=== PATIENT | male | born 1950 | race Caucasian/White ===

== ENCOUNTER 2023-05-09 14:55 | Emergency (ER) | payer MEDICARE, OTHER, SELFPAY ==
[2023-05-09 15:08] VITALS: BP 113/79
--- NOTE | 2023-05-09 18:34 | ED.GENMED ---
History of Present Illness
General
Chief Complaint: Fall
Source: patient, spouse and family
Exam Limitations: none
Time Seen by Provider: 05/09/23 17:26
Nursing documentation reviewed up to this point in time: agreed with
Travel History
Have you had any contact with someone who has COVID-19?: No
Do you have any symptoms of coronavirus? Fever > 100 degrees, chills, cough, shortness of breath, sore throat, loss of taste or smell, muscle aches, or headache?: No
History of Present Illness
History of Present Illness:
72-year-old male with past medical history of glioblastoma stroke hyperlipidemia presenting to the emergency department today with concerns of a fall outside had difficulty getting up this was not specifically witnessed by the but was not
milligram for long as she was near him just moments prior. He denies any trauma otherwise feels well claims of some very mild hip comfort. Denies additional concerns. Denies hitting his head
Past History
Past History
ED Past Medical History: Cancer (Glioblastoma), CVA and Hypercholesterolemia
ED Past Surgical History: Appendectomy and Brain (Resection of astrocytoma)
Social History
Tobacco: Non-smoker
Alcohol: None
Drug: None
Personal:
Living: with family
Review of Systems
Review of Systems
Allergies reviewed?: Yes
All Other Systems: ROS reviewed and negative except as documented in HPI and ROS
Phy Exam
Physical Exam
Physical Exam:
GENERAL: Alert , in no apparent distress
EYE: pupils equal and reactive
NECK: Supple, no significant adenopathy.
ENT: o/p clr, mmm.
CARDIAC: Regular rate and rhythm .
LUNGS: Clear breath sounds bilaterally, no acute respiratory distress, no wheezes/rales/rhonchi
ABDOMEN: Soft, without focal tenderness, no r/g, no cvat
NEUROLOGICAL: Alert and oriented, no focal neuro deficits
SKIN: Skin tear to the left elbow roughly 3 cm in length 3 cm in diameter warm and dry, skin intact.
MUSCULOSKELETAL: No edema, well perfused.
PSYCH: Normal and appropriate interaction.
Course
Orders/Labs/Results
Orders:
Orders
05/09/23 18:02
CT Head W/o Iv Contrast Urgent
Comment:
Reason For Exam: fall
Hip, Left 2-3 Views [CR Hip - LT w/wo Pel 2-3 Vw*] Urgent
Comment:
Reason For Exam: left hip pain after fall
Include a pelvis x-ray?: Yes
Vital Signs
Initial and Last Documented VS:
Initial Vital Signs
Temp Pulse Resp BP Pulse Ox
98.3 F 105 18 113/79 96
05/09/23 15:08 05/09/23 15:08 05/09/23 15:08 05/09/23 15:08 05/09/23 15:08
Last Documented Vital Signs
Temp Pulse Resp BP Pulse Ox
98.3 F 105 18 113/79 96
05/09/23 15:08 05/09/23 15:08 05/09/23 15:08 05/09/23 15:08 05/09/23 15:08
Procedures
Laceration Closure
Left Elbow:
Status of Wound: clean
Size of Wound in cm: 3
Description of Wound Edges: other (Skin tear)
Preparation: cleaned with saline
Revision/Debridement: routine- no revision
Wound exploration: explored to base- no FB
Type of Closure: other (Closed with 5 Steri-Strips)
MDM/Problems Addressed
MDM/Problems Addressed:
72-year-old male presenting to the emergency department today with concerns of a fall outside. Denies any significant injuries but had difficulty standing up secondary to hip pain. Otherwise denies any additional symptoms or concerns at this time.
He does have a history of dementia the family him that he is acting his baseline normal self at this point. No specific acute abnormalities on examination other than a skin tear to the left elbow which was cleaned thoroughly and closed with 5
Steri-Strips. This was then wrapped and bandaged. Plan for additional CT scan of the head as well as x-ray of the hip. CT without emergent findings x-ray without signs of fracture. Patient appears stable for discharge no emergent findings at
this point. Return precautions given advised for close outpatient follow-up.
*Critical Care Note
Total Time (30-74mins, 75-104mins- exclusive of procedures): Not Applicable
ED Attending Note
-
Portions of this chart may have been created with voice recognition software.� Occasional wrong word or��sound alike� substitutions may have occurred due to the inherent limitations of voice recognition software.
Discharge Plan
Departure
Patient Disposition: Home (Routine Discharge)
Date of Disposition: 05/09/23
Time of Disposition: 20:00
Patient with high blood pressure during this ER visit?: No
Condition: Good
Covid-19: Not Applicable
Discharge Problem:
Fall
Instructions: Preventing falls in adults
Prescriptions:
No Action
acetaminophen 325 mg Tablet
650 mg PO Q6H PRN (Reason: pain)
levetiracetam 500 mg Tablet
500 mg PO BID
tamsulosin 0.4 mg Capsule
0.4 mg PO HS
dexamethasone 2 mg tablet
2 mg PO DAILY
aspirin 81 mg Tablet,Chewable
81 mg PO DAILY Qty: 0 0RF
atorvastatin 40 mg Tablet
40 mg PO QPM Qty: 90 0RF
dutasteride 0.5 mg Capsule
0.5 mg PO DAILY Qty: 90 0RF
Patient Comments:
12/31/21- spouse say he still takes this but hasnt not been filled in 2021, and patient does not use mail order
Referrals:
Melo Carlson MD [Family Provider] -
Activity Restrictions/Additional Instructions:
You came to the emergency department today after a fall. You had a reassuring CT scan and x-ray. Return to the emergency department for any worsening, new or concerning symptoms.
Interventions
Interventions:
ED-Musculoskeletal Assessment Last Done: 05/09/23 17:20
ED- Neurological Assessment Last Done: 05/09/23 17:20
ED-Skin Assessment Last Done: 05/09/23 17:20
== END 2023-05-09 20:11 | disposition home or self-care (01) ==
LOC: EMR 14:55
PROVIDERS: EMERGENCY PHYSICIAN Emergency Medicine; FAMILY PHYSICIAN Internal Medicine
DX: S51.012A Laceration without foreign body of left elbow, initial encounter (principal); W19.XXXA Unspecified fall, initial encounter; F03.90 Unspecified dementia, unspecified severity, without behavioral disturbance, psychotic disturbance, mood disturbance, and anxiety; Z86.73 Personal history of transient ischemic attack (TIA), and cerebral infarction without residual deficits
CPT/HCPCS: 99284; 70450; 73502

== ENCOUNTER 2023-10-10 15:33 | Inpatient (IN) | payer MEDICARE, OTHER, SELFPAY ==
[2023-10-10] VITALS (10 sets, daily range): BP systolic 96–128; BP diastolic 68–82; BMI 29.0
[2023-10-10 11:24] LABS: % Basophils 0.3 % (0-2); % Eosinophils 1.3 % (0-6); % Immature Granulocytes 0.6 % (0-0.5); % Lymphocytes 10.5 % (20.5-51.1); % Neutrophils 81.3 % (42.2-75.2); Absolute Eosinophils 0.1 10^3/uL (0-0.7); Absolute Immature Granulocytes 0.1 10^3/uL (0-0.05); Absolute Lymphocytes 1.1 10^3/uL (1.2-3.4); Absolute Monocytes 0.6 10^3/uL (0.1-0.6); Absolute Neutrophils 8.4 10^3/uL (1.4-6.5); Hematocrit 40.6 % (39.0-52.0); Mean Corp Hgb Conc. 34.5 g/dL (33.0-37.0); Mean Corpuscular Volume 92.7 fL (80.0-94.0); Mean Platelet Volume 9.1 fL (7.4-10.4); Nucleated Red Blood Cells % 0 % (-); Platelet Count 201 10^3/uL (130-400); Red Blood Cell Count 4.38 10^6/uL (4.70-6.10); Red Cell Dist. Width 14.2 % (11.5-14.5); White Blood Cell Count 10.3 10^3/uL (4.8-10.8)
--- NOTE | 2023-10-10 11:35 | ED.GENMED ---
History of Present Illness
General
Chief Complaint: Blood Pressure Problem
Source: family and [place] [facility]
Time Seen by Provider: 10/10/23 11:22
History of Present Illness
History of Present Illness:
73yoM with a history of dementia, glioblastoma, prior CVA, and hyperlipidemia presenting via EMS for evaluation after a syncopal episode. Patient is unable to provide history and does not remember the episode. I called and spoke with umair Riojas SENIOR TECHNICAL ANALYST
at his nursing facility [facility]. Patient had a loose BM this morning. Staff got him up and was ambulating him to go to breakfast. Patient's eyes rolled back and staff lowered him to a chair. Nurse states that it was a near syncopal
episode and he did not lose consciousness. BP was 85/70 at that time and he appeared pale, diaphoretic, and shaky. Patient then had another loose BM and was too weak to stand. He seemed to be falling to the right side and was unable to sit upright
so EMS was called. Patient was hypotensive to 70s/50s for EMS. He received 500cc IV fluid bolus prehospital and is normotensive on arrival. He has no complaints at this time.
Past History
Past History
ED Past Medical History: Cancer (Glioblastoma), CVA and Hypercholesterolemia
ED Past Surgical History: Appendectomy and Brain (Resection of astrocytoma)
Social History
Tobacco: Non-smoker
Alcohol: None
Drug: None
Personal:
Living: with family
Phy Exam
General Physical Exam
General Presentation: well appearing and no apparent distress
General age: appears stated age
General Skin: warm and dry
General Habitus: elderly
General Mental: alert
Cardiovascular Exam
Cardiovascular Exam: regular rate/rhythm and no edema
Pulmonary Exam
Pulmonary Exam: lungs clear, no respiratory distress and no crackles
Neurological Exam
Neurological Exam: alert and other (Oriented to person. Not oriented to place or time. Follows commands in all extremities. Negative drift x4.)
Skin Exam
Skin Exam: normal color and warm/dry
Psychiatric Exam
Psychiatric Exam: normal mood/affect
Course
Orders/Labs/Results
Orders:
Orders
10/10/23 11:06
Electrocardiogram (*1) Urgent
Reason for Study: Bradycardia / Tachycardia
EKG- Treatment ONCE
10/10/23 11:16
Complete Blood Count/With Diff Urgent
Comprehensive Metabolic Panel Urgent
10/10/23 11:33
Cardiac Monitoring- Treatment ONCE
10/10/23 11:37
CT Head W/o Iv Contrast Urgent
Comment:
Reason For Exam: Syncope, transient weakness
10/10/23 11:39
Troponin I Urgent
10/10/23 11:45
Potassium Chloride [KCl] 20 meq PO NOW STA
10/10/23 11:54
Urinalysis Reflex To Culture Urgent
Date Specimen was Collected: 10/10/23
Time Specimen was Collected: 11:48
Urine Microscopic Reflex Cult Urgent
10/10/23 15:26
Admit/Transfer Patient As Directed
Co-Sign Provider:
Level of Care: Inpatient admission
Assign to:: Telemetry
Physician / Group: Hospitalist
Diagnosis: Syncope
Reason for Telemetry: Medication for Arrhythmia
Date to Stop Telemetry: 10/12/23
Time to Stop Telemetry: 11:00
Reason for Hospitalization: .
Expected length of stay greater than two midnights?: Yes
ELOS- Estimated Length of Stay in days: 3
I certify the patient meets the requirements for IP care: Yes
10/10/23 15:27
Code Status As Directed
Resuscitation Status: Full Code
10/12/23 11:00
DC Protocol for Telemetry ONCE
Abnormal Lab Results
10/10/23 10/10/23
11:16 11:54
RBC 4.38 L 10^6/uL
(4.70-6.10)
MCH 32.0 H pg
(27.0-31.0)
Abs Immat Gran (auto) 0.1 H 10^3/uL
(0-0.05)
Absolute Neuts (auto) 8.4 H 10^3/uL
(1.4-6.5)
Absolute Lymphs (auto) 1.1 L 10^3/uL
(1.2-3.4)
Immature Gran % 0.6 H %
(0-0.5)
Neutrophils % 81.3 H %
(42.2-75.2)
Lymphocytes % 10.5 L %
(20.5-51.1)
Potassium 3.4 L mmol/L
(3.5-5.1)
Glucose 181 H mg/dl
(70-99)
Total Protein 5.8 L g/dl
(6.3-8.2)
Urine Ketones 1+ A
(Negative)
Urine Albumin (Reflex) 1+ A
(Neg - Trace)
10/10/23 11:16
10/10/23 11:16
Vital Signs
Initial and Last Documented VS:
Initial Vital Signs
Resp BP
23 96/75
10/10/23 11:04 10/10/23 11:04
Last Documented Vital Signs
Temp Pulse Resp BP Pulse Ox
98.8 F 95 16 128/78 98
10/10/23 11:07 10/10/23 13:00 10/10/23 13:00 10/10/23 13:00 10/10/23 11:07
MDM/Problems Addressed
Differential Diagnosis Includes:
73yoM here after multiple near syncopal episodes at his [place] [facility]. Hypotensive for EMS with BP in the 70s/50s. Received 500cc IV fluids prehospital. Hx of dementia and he has no complaints. BP 96/75 on arrival. Remainder vital stable. He is
well-appearing in no acute distress. Differential diagnosis includes but is not limited to: Orthostatic hypotension, dehydration, symptomatic anemia, arrhythmia
Initial ED plan: Placed on nuclear monitoring technician. Check cardiac labs, EKG, CXR, and CT head.
*EKG
Interpreted by ED Provider?: Yes
EKG Intrepretation Date: 10/10/23
Heart Rate: 96
Rate: normal
Rhythm: sinus
[place]: left axis deviation
QRS Pattern: normal QRS
Ischemia: no ischemia
*Critical Care Note
Total Time (30-74mins, 75-104mins- exclusive of procedures): Not Applicable
Update Note
Update Note:
Labs overall unremarkable including normal hemoglobin. Glucose 181. EKG shows NSR without ischemic changes and troponin WNL. CT head is stable from prior. He remains normotensive. He was admitted for further evaluation.
ED Attending Note
-
Portions of this chart may have been created with voice recognition software.� Occasional wrong word or��sound alike� substitutions may have occurred due to the inherent limitations of voice recognition software.
Discharge Plan
Departure
Patient Disposition: Admit
Date of Disposition: 10/10/23
Time of Disposition: 14:20
Presentation/result/management discussed w/ accepting MD/DO: Hospitalist
Discharge Problem:
Near syncope, Hypotension
Interventions
Interventions:
*Risk Screen - Suicide Last Done: 10/10/23 11:07
*General Assessment Last Done: 10/10/23 11:07
*Neglect/Abuse Screening Last Done: 10/10/23 11:07
*ED COVID-19 Vaccine History Last Done: 10/10/23 11:07
ED- Cardiac Assessment Last Done: 10/10/23 11:07
ED- Neurological Assessment Last Done: 10/10/23 11:07
ED- Pulmonary Assessment Last Done: 10/10/23 11:07
[2023-10-10 11:39] LABS: ALT (SGPT) 24 U/L (0-50); AST (SGOT) 23 U/L (17-59); Albumin 3.6 g/dl (3.5-5.0); Alkaline Phosphatase 92 U/L (38-126); Blood Urea Nitrogen 13 mg/dl (9-20); Calcium 8.6 mg/dl (8.4-10.2); Carbon Dioxide 22 mmol/L (22-30); Chloride 107 mmol/L (98-107); Estimated Creatinine Clearance 79 ml/min; Glucose 181 mg/dl (70-99); Potassium 3.4 mmol/L (3.5-5.1); Sodium 137 mmol/L (135-145); Total Bilirubin 1.3 mg/dl (0.2-1.3); Total Protein 5.8 g/dl (6.3-8.2); eGFR > 60.00
[2023-10-10] MEDS: KCL 20 MEQ PO (11:50)
[2023-10-10 12:22] LABS: Troponin I < 0.012 ng/ml
[2023-10-10 12:28] LABS: Urine Albumin 1+ (Neg - Trace); Urine Bilirubin Negative (Negative); Urine Character Clear (Clear); Urine Color Yellow; Urine Glucose Negative (Negative); Urine Ketone 1+ (Negative); Urine Leukocyte Negative (Negative); Urine Nitrite Negative (Negative); Urine Occult Blood Negative (Negative); Urine Urobilinogen Negative (Neg - 1+)
[2023-10-10 12:41] LABS: Urine Red Blood Cell 0-2 /HPF (0-2)
--- NOTE | 2023-10-10 14:50 | HPS.HSE ---
Family Physician
-
Family Physician: Melo Carlson
Chief Complaint
-
Fainting episodes and weakness at [facility]
History of Present Illness
73 years old male [facility] in from [facility] for near syncopal episode. History taken from the daughter at bedside. She reported that family was called regarding weakness today. No loss of consciousness. Some eye fainting episode that
happened after bowel movement. Staff also reported increasing weakness and shuffling gait in last 24 hours.
Patient uses [facility]er at the [facility]. Patient has dementia but usually able to organize his family and answer simple questions.
In the emergency room, blood pressure was 96/70, given IV fluid with good recovery, positive tachycardia. Last blood pressure reading 128/78. No fever. No leukocytosis. Negative troponin. No hypoxia detected. EKG normal sinus rhythm. Mild
hypokalemia.
Staff at the [facility] reported loose stool. Potassium 3.4 on arrival.
No report of chest pain. No report of fever. No report of coughing.
Head the scan showed no acute intracranial abnormality with atrophy noted/stable moderate left temporal encephalomalacia.
Medical History
Past Medical History
Past Medical History: Reports Other (dementia, glioblastoma, prior CVA, and hyperlipidemia, gait dysfunction, urinary incontinence )
Past Surgical History: Reports Other (No recent major surgery )
Social History
Unable to obtain full social history at this time due to: Dementia
Tobacco: Non-smoker
Alcohol: None
Drug: None
Personal:
Living: Retirement
Employment: Retired
Family History
Family History: Not pertinent
Allergies / Home Medications
Allergies reflects when Allergies were last updated in [facility].
Home Medications with original date entered in [facility]
Allergy/Medication List:
Allergies
Allergy/AdvReac Type Severity Reaction Status Date / Time
No Known Allergies Allergy Verified 10/10/23 11:11
Home Medications
dexamethasone 2 mg tablet 1 mg PO DAILY Anti-inflammatory 12/31/21
levetiracetam 500 mg tablet 500 mg PO BID Seizures 12/31/21
tamsulosin 0.4 mg capsule 0.4 mg PO HS Urinary issue 12/31/21
aspirin 81 mg chewable tablet 81 mg PO DAILY #0 tabs 01/04/22
dutasteride 0.5 mg capsule 0.5 mg PO DAILY Urinary issue #90 caps 01/08/22
atorvastatin 40 mg tablet 40 mg PO DAILY 10/10/23
Review of Systems
-
Unable to obtain full review of systems at this time due to: Dementia
History Source: Patient
Cardiac: Denies Chest Pain
Abdomen/GI: Denies Abdominal Pain
Physical Exam
Vital Signs
Vital Signs
Temp Pulse Resp BP Pulse Ox
98.8 F 95 16 128/78 98
10/10/23 11:07 10/10/23 13:00 10/10/23 13:00 10/10/23 13:00 10/10/23 11:07
Physical Exam
General: No Apparent Distress, Comfortable and Obese
HEENT: Atraumatic
Respiratory: Clear
Cardiac: S1/S2 and Regular Rhythm
GI: Soft and Non Tender
Genito-urinary: No costovertebral tender
Musculoskeletal: No Cyanosis and No Edema
Skin: Warm; No Jaundice
Neuro: Awake and Other (followed simple commands )
Psych: Apparent Dementia
Laboratory Results
-
10/10/23 11:16
10/10/23 11:16
Laboratory Results
Total Bilirubin 1.3 mg/dl (0.2-1.3) 10/10/23 11:16
AST 23 U/L (17-59) 10/10/23 11:16
ALT 24 U/L (0-50) 10/10/23 11:16
Alkaline Phosphatase 92 U/L (38-126) 10/10/23 11:16
Troponin I < 0.012 ng/ml 10/10/23 11:39
Impression/Plan
-
73 male presented from [facility] after experiencing near syncopal episode, had low blood pressure also
71-year-old with past medical history for glioblastoma diagnosed 5 years ago underwent tumor resection, received radiation and chemo presented to the to us with worsening confusion over last few weeks.�Found to have �9 mm subacute versus old
nonhemorrhagic lacunar infarct in the anterior limb of the internal capsule and anterior aspect of the lentiform nucleus on the right.�
#Near syncopal episode without loss of consciousness
Reported low blood pressure at [facility] and in [facility]ulance
s/p IVF with good recovery to blood pressure
Admit the patient to the hospital, telemetry -Cardiac monitoring floor
Differential diagnosis include cardiac arrhythmia, vasovagal syncopal episode
Doubt seizure due to lack of seizure activity and postictal confusion.
Recheck troponin.
Monitor for orthostatic hypotension, order orthostatic vital signs twice a day
Monitor blood pressure.
IV fluid, mild hydration
No signs of active infection, no fever, no leukocytosis.
Negative troponin. EKG no acute ischemic changes
CT head with no acute changes
Monitor closely
# History of loose stools, will monitor for diarrhea.
#Hypokalemia
-We will replete with oral KCl
#Glioblastoma, s/p surgery and radiation, with subsequent decline in cognitive function.
#Radiation necrosis and radiation post effects
-We will continue Decadron
-Keppra to be continued
#BPH
-monitor for retention
# Gait dysfunction
PT/OT
Chronic left hip OA
#DVT prophylaxis
Subcu heparin
Total time spent to see the patient, examine the patient on the floor, review data and lab results, discuss treatment plan with patient, his daughter, ER doctor, nursing staff around 75 minutes.
--- NOTE | 2023-10-10 17:00 | PTCARENOTE ---
Pt received in stretcher, pulled over to bed. Son at bedside and on phone to assist in completing admission. Pt is confused, oriented to self only, drowsy, at times restless when disturbed, but otherwise sleeping. Moans at times, but unable to
articulate if or where he is having pain. Bed alarm in place for patient safety. VSS.
[2023-10-10] MEDS: KEPPRA 500 MG PO (20:09)
[2023-10-10] MEDS: HEPARIN 5000 UNITS SC (20:09)
[2023-10-10] MEDS: FLOMAX 0.4 MG PO (22:17)
[2023-10-11] VITALS (9 sets, daily range): BP systolic 113–137; BP diastolic 64–88; PULSE 72–99; O2SAT 97
[2023-10-11 07:20] LABS: Hematocrit 38.4 % (39.0-52.0); Hemoglobin 13.5 g/dL (13.0-18.0); Mean Corp Hgb Conc. 35.2 g/dL (33.0-37.0); Mean Corpuscular Hgb 32.5 pg (27.0-31.0); Mean Corpuscular Volume 92.3 fL (80.0-94.0); Mean Platelet Volume 9.5 fL (7.4-10.4); Platelet Count 181 10^3/uL (130-400); Red Blood Cell Count 4.16 10^6/uL (4.70-6.10); Red Cell Dist. Width 13.9 % (11.5-14.5)
[2023-10-11 08:14] LABS: Blood Urea Nitrogen 17 mg/dl (9-20); Calcium 8.7 mg/dl (8.4-10.2); Carbon Dioxide 22 mmol/L (22-30); Chloride 107 mmol/L (98-107); Estimated Creatinine Clearance 102 ml/min; Glucose 87 mg/dl (70-99); Potassium 3.5 mmol/L (3.5-5.1); Sodium 135 mmol/L (135-145); eGFR > 60.00
[2023-10-11] MEDS: HEPARIN 5000 UNITS SC ×2 (08:37→20:32)
[2023-10-11] MEDS: DECADRON 1 MG PO (08:38)
[2023-10-11] MEDS: KEPPRA 500 MG PO ×2 (08:38→20:31)
[2023-10-11] MEDS: LOW STRENGTH ASPIRIN 81 MG PO (08:38)
[2023-10-11] MEDS: PROSCAR 5 MG PO (08:38)
--- NOTE | 2023-10-11 09:29 | W.PN.HOSP.TC ---
Today's Communication/Plan
-
Neurology evaluation
Continue heart monitoring
Assessment / Plan
Assessment / Plan
Physical Exam
General: No Apparent Distress, Comfortable and Obese
HEENT: Atraumatic
Respiratory: Clear
Cardiac: S1/S2 and Regular Rhythm
GI: Soft and Non Tender
Genito-urinary: No costovertebral tender
Musculoskeletal: No Cyanosis and No Edema
Skin: Warm; No Jaundice
Neuro: Awake and Other (followed simple commands )
Psych: Apparent Dementia
73 male presented from [facility] after experiencing near syncopal episode, had low blood pressure also
71-year-old with past medical history for glioblastoma diagnosed 5 years ago underwent tumor resection, received radiation and chemo presented to the to us with worsening confusion over last few weeks.�Found to have �9 mm subacute versus old
nonhemorrhagic lacunar infarct in the anterior limb of the internal capsule and anterior aspect of the lentiform nucleus on the right.�
#Near syncopal episode without loss of consciousness
Reported low blood pressure at [facility] and in [facility]ulance
Near syncopal episode was associated with passing bowel movement at the half-way.
s/p IVF with good recovery to blood pressure
Orthostatic vital signs are stable.
No cardiac arrhythmia on heart monitor.
Negative troponin twice
Repeat blood work including CBC & BMP is normal.
No leukocytosis. No fever. EKG with no acute ischemic changes.
CT head with no acute changes
Consult PT/OT
# History of loose stools, Nod iarrhea reported by staff. Pt denied abdominal pain.
#Hypokalemia
resolved.
#Glioblastoma, s/p surgery and radiation, with subsequent decline in cognitive function.
#Radiation injury and radiation post effects
-We will continue Decadron
Continue with Keppra
Son Marcelo came to see his father. He reported that patient looked different, needed neurology evaluation. Son was concerned about worsening confusion ( pt used hands to warp picker food), some facial droop on the right side. Primary care doctor of
the pt recommended neurology evaluation two months ago. Unfortunately, patient is poor historian due to underlying cognitive impairment. I consulted neurology, input appreciated.
#BPH
-monitored for retention
# Chronic Gait dysfunction
PT/OT, recommended SNF
Chronic left hip OA
#DVT prophylaxis
Subcu heparin
Total time spent to see the patient, examine the patient on the floor, review data and lab results, discuss treatment plan with patient, his son Marcelo, nursing staff around 75 minutes.
Anticipated Discharge: Within 24 hours
Subjective/Interval History
-
Date of Service: October 11, 2023
Pt denies headache, weakness or pain in chest or abdomen
Sob at bed side reports confusion and wants neurology evaluation
Objective Data
-
Labs:
Laboratory Results
10/11/23
06:39
WBC 8.0
Hgb 13.5
Hct 38.4 L
Plt Count 181
Sodium 135
Potassium 3.5
Chloride 107
Carbon Dioxide 22
BUN 17
Creatinine 0.7
Glucose 87
Calcium 8.7
Vital Signs:
Vital Signs
Temp Pulse Resp BP Pulse Ox
98.4 F 86 18 132/84 96
10/11/23 03:25 10/11/23 07:00 10/11/23 07:00 10/11/23 07:00 10/11/23 07:00
I&O
10/10/23 10/11/23 10/12/23
06:59 06:59 06:59
Intake Total 120 / 120
Balance 120 / 120
--- NOTE | 2023-10-11 13:31 | CON.NEURO4 ---
Consultation - Neurology 4
-
CONSULTING PHYSICIAN: Anjum Hendrickson MD(Neurology)
REFERRING PHYSICIAN: Hospitalist
DICTATED BY: Anjum Hendrickson MD
DATE/TIME OF REQUEST: 10/11/2023
DATE/TIME OF CONSULTATION: 10/11/2023 1330
Reason for Consultation: AMS
History of Present Illness:
This is a 73 year old right handed male who has presented to the hospital with chief complaint of altered mental status. He gives a h/o small vessel disease of the brain, left temporal lobe astrocytoma s/p excision, dementia who had been in his
[facility] till last few weeks. He has been having increasing difficulty with ADLs. Needing help with feeding, difficulty standing recurrent falls
On the morning of admission he had a BM and became hypotensive. He needed help standing
He became lightheaded, eyes rolled up without LOC. BP was 85/70... EMS gave him IV saline and BP was 70/50.
Following admission he is at his baseline
As per the son pat gets restless and agitated in the evening
Past Medical History: Left Temporal lobe astrocytoma
Surgical History: Craniectomy(L) appendectomy
Family History: NC
Social History: Retired Lives at intermediate
Allergies: NKA
Home Medications: Aspirin, Lipitor, Keppra, Dutasteride
Review of Symptoms:
Patient denies any fever, headache, chest pain, shortness of breath, GI or symptoms.
�Per the HPI. I am unable to obtain a complete review of systems�because of patient's inability to provide history.
Vital Signs:
The patient has a
Temp Pulse Resp BP Pulse Ox
36.9 C 98 17 134/87 93
Physical Exam:
The patient is afebrile, heart sounds S1 and S2 are regular , and chest is clear to auscultation bilaterally. Left temporal craniectomy defect
- If not clear, describe.
Neurologic Examination:
The patient is awake, confused and oriented x person and place. He is able to follow commands. He can answer some questions appropriately. Speech is limited and there is aphasia. No dysarthria. On cranial nerve assessment, pupils are 3 mm
bilateral, round and reactive to light and accommodation. Visual george are full. Extraocular movements are intact. Facial sensations are intact and bilaterally symmetrical, there is no facial asymmetry. Hearing is intact bilaterally to normal
conversation volume. Tongue palate and uvula are midline. Sternocleidomastoid strengths are full bilaterally.
Motor strengths are 5/5 bilateral upper and lower extremities on medical research [place] scale. There is no drift or involuntary movement noted.
Deep tendon reflexes are 2+ bilateral upper and lower extremities and Babinski is absent bilaterally.
Sensations of pain, touch, temperature and vibration are intact and bilaterally symmetrical. There is extinction noted on double simultaneous stimulation.
Coordination is intact by finger to nose bilaterally. Rombergs +. Gait assisted. Needs wheelchair
Lab Results: See addendum
Neuro Imaging: Left temporal lobe encephalomalacia. Craniectomy bony defect. Dilated ventricles. Possible NPH
Impression:
Mr. LIAM DE LA CRUZ is a 73 year old M who has presented to the hospital with (symptoms/chief complaint) of near syncope secondary to hypotension and worsening confusion at the SD
Differentials for the patient's presentation include:
1. Dementia with sundowning
2. Complex Partial seizure
Recommendations:
1. EEG
2. Serial CT head
3. Consider switching Keppra to Depakote(family wishes pat to remain on Keppra. Agree to switching if he has more episodes)
4. B12
5. Thiamin/MVI
Discussed patient care with: Hospitalist & family
Vital Signs and Labs
-
Vital Signs and Labs:
Vital Signs
Temp Pulse Resp BP Pulse Ox
36.9 C 98 17 134/87 93
10/11/23 11:00 10/11/23 11:00 10/11/23 11:00 10/11/23 11:00 10/11/23 11:00
Lab Results
10/11/23 06:39
10/11/23 06:39
Sodium 135 mmol/L (135-145) 10/11/23 06:39
Potassium 3.5 mmol/L (3.5-5.1) 10/11/23 06:39
BUN 17 mg/dl (9-20) 10/11/23 06:39
Glucose 87 mg/dl (70-99) 10/11/23 06:39
Calcium 8.7 mg/dl (8.4-10.2) 10/11/23 06:39
Allergies
-
Allergies
Allergy/AdvReac Type Severity Reaction Status Date / Time
No Known Allergies Allergy Verified 10/10/23 11:11
Medications
-
Active Medications
Generic Name Dose Route Start Last Admin
Trade Name Freq PRN Reason Stop Dose Admin
Aspirin 81 mg 10/11/23 08:00 10/11/23 08:38
Aspirin 81 Mg Chewable Tablet PO 11/08/23 07:59 81 mg
DAILY JHONNY Administration
Dexamethasone 1 mg 10/11/23 08:00 10/11/23 08:38
Dexamethasone 2 Mg Tablet PO 11/08/23 07:59 1 mg
DAILY JHONNY Administration
Finasteride 5 mg 10/11/23 08:00 10/11/23 08:38
Finasteride 5 Mg Tablet PO 11/08/23 07:59 5 mg
DAILY JHONNY Administration
Heparin Sodium 5,000 units 10/10/23 20:00 10/11/23 08:37
Heparin 5,000 Units/Ml 1 Ml Vial SC 11/07/23 19:59 5,000 units
Q12 JHONNY Administration
Levetiracetam 500 mg 10/10/23 20:00 10/11/23 08:38
Levetiracetam 500 Mg Regular Release Tablet PO 11/07/23 19:59 500 mg
BID JHONNY Administration
Sodium Chloride 0 flush 10/10/23 17:00
Sodium Chloride 0.9% (Flush) Syringe IV 09/02/24 16:59
PER PROTOCOL JHONNY
Tamsulosin HCl 0.4 mg 10/10/23 22:00 10/10/23 22:17
Tamsulosin 0.4 Mg Capsule PO 11/07/23 21:59 0.4 mg
HS JHONNY Administration
Home Medications
�Medication �Instructions �Recorded
dexamethasone 2 mg tablet 1 mg PO DAILY Anti-inflammatory 12/31/21
levetiracetam 500 mg tablet 500 mg PO BID Seizures 12/31/21
tamsulosin 0.4 mg capsule 0.4 mg PO HS Urinary issue 12/31/21
aspirin 81 mg chewable tablet 81 mg PO DAILY #0 tabs 01/04/22
dutasteride 0.5 mg capsule 0.5 mg PO DAILY Urinary issue #90 01/08/22
caps
atorvastatin 40 mg tablet 40 mg PO DAILY 10/10/23
--- NOTE | 2023-10-11 14:50 | CM ---
Addendum entered by Mavis Grider 10/11/23 15:33:
Call from son requesting update
He is requesting to speak with physician as he has medical concerns
TT/Dr Lopez
Original Note:
CM spoke with [facility] nurse/Shine
Pt from the [facility] unit- AxO x1, confusion, no behaviors
Pt is independent with ambulation and transfers with use of a WW and stand by assist
He requires heavy coaxing and cueing for personal care tasks including eating
PCP- Melo Carlson
Rx- [facility]
Preferred providers are [facility]
PT/OT following- pt currently a 2 person assist
Pt can return at a 1 person assist to [facility]
Will need SNF if 2 or more on dc
Call with dtr/Lily to introduce self
Explained role and dc planning
PAC left bedside- she is in agreement with backup SNF referrals
She will review PAC and provide choices to CM
Discharge Disposition- return to [facility] with services vs SNF
--- NOTE | 2023-10-11 15:53 | EEG.RPT ---
Electroencephalogram Report
Recording
Date of EE10/11/23
Type of EEG: Routine
Length of EEG recordin minutes
Done with Video Recording: Yes
Patient Status: Inpatient
Recording Conditions: Awake and Drowsy
Hyperventilation Performed: No
Photic Stimulation Performed: Yes
Report
LESS THAN 1 HOUR EEG REPORT
LESS THAN 1 HOUR EEG INTERPRETATION:
Moderately abnormal EEG for age with evidence of a breach artifact in the left temporal region and diffuse slowing
CLINICAL CORRELATION:
The presence of a breach artifact was suggestive of a prior left-sided craniotomy.
Presence of diffuse slowing was indicative of a generalized cortical dysfunction. If clinical suspicion for seizure persists, a prolonged recording may be warranted.
Clinical correlation is advised.
METHODS:
A 21 channel digitized electroencephalogram (EEG) was performed using the 10/20 international system of electrode placement and one-lead of ECG recorded. Dheere Bolo quantitative EEG analysis was utilized.
ELECTROENCEPHALOGRAPHER IMPRESSION(S):
Quality of study
Good
Background
There was a poor anterior-posterior voltage gradient of theta maximal frequency.
With eye opening the background activity changed to a low voltage mixture of frequencies.
There was near continuous, variable amplitude theta frequency, left temporal (T3 maximal) electrical activity.
Sleep
Drowsiness present
Photic Stimulation
No driving
ECG
Normal sinus rhythm
[2023-10-11] MEDS: FLOMAX 0.4 MG PO (21:21)
[2023-10-12] VITALS (7 sets, daily range): BP systolic 112–150; BP diastolic 58–92; PULSE 73–91; O2SAT 97; BMI 28.0
[2023-10-12] MEDS: LOW STRENGTH ASPIRIN 81 MG PO (08:15)
[2023-10-12] MEDS: DECADRON 1 MG PO (08:15)
[2023-10-12] MEDS: PROSCAR 5 MG PO (08:16)
[2023-10-12] MEDS: KEPPRA 500 MG PO ×2 (08:16→19:23)
[2023-10-12] MEDS: HEPARIN 5000 UNITS SC ×2 (08:16→19:23)
--- NOTE | 2023-10-12 09:17 | W.PN.HOSP.TC ---
Today's Communication/Plan
-
dc planning
Re-evaluate PT
Assessment / Plan
Assessment / Plan
Physical Exam
General: No Apparent Distress, Comfortable and Obese
HEENT: Atraumatic
Respiratory: Clear
Cardiac: S1/S2 and Regular Rhythm
GI: Soft and Non Tender
Genito-urinary: No costovertebral tender
Musculoskeletal: No Cyanosis and No Edema
Skin: Warm; No Jaundice
Neuro: Awake and Other (followed simple commands )
Psych: Apparent Dementia, mildly agitated earlier.
73 male presented from [place] after experiencing near syncopal episode, had low blood pressure also
71-year-old with past medical history for glioblastoma diagnosed 5 years ago underwent tumor resection, received radiation and chemo presented to the to us with worsening confusion over last few weeks.�Found to have �9 mm subacute versus old
nonhemorrhagic lacunar infarct in the anterior limb of the internal capsule and anterior aspect of the lentiform nucleus on the right.�
#Near syncopal episode without loss of consciousness
Reported low blood pressure at [facility] and in Ambulance
Near syncopal episode was associated with passing bowel movement at the snf.
s/p IVF with good recovery to blood pressure
Orthostatic vital signs are stable.
No cardiac arrhythmia on heart monitor.
Negative troponin twice
Repeat blood work including CBC & BMP is normal.
No leukocytosis. No fever. EKG with no acute ischemic changes.
CT head with no acute changes
Consulted PT/OT, seems to recommend SNF, will - re-evaluate today
# History of loose stools, Nod iarrhea reported by staff. Pt denied abdominal pain.
#Hypokalemia
resolved.
#Glioblastoma, s/p surgery and radiation, with subsequent decline in cognitive function.
#Radiation injury and radiation post effects
-We will continue Decadron
Continue with Keppra
Son Marcelo came to see his father. He reported that patient looked different, needed neurology evaluation. 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 Primary care doctor
of the pt recommended neurology evaluation two months ago. Unfortunately, patient is poor historian due to underlying cognitive impairment. I consulted neurology, neurology recommended change to seizure medicine but family declined for now, per
neurology, pt is stable to leave input appreciated.
#BPH
-monitored for retention
# Chronic Gait dysfunction
PT/OT, recommended SNF
Chronic left hip OA
#DVT prophylaxis
Subcu heparin
Total time spent to see the patient, examine the patient on the floor, review data and lab results, discuss treatment plan with patient, his son Marcelo, nursing staff around 75 minutes.
Anticipated Discharge: Today
Subjective/Interval History
-
Date of Service: October 12, 2023
Pt denies pain
No fevers
Objective Data
-
Vital Signs:
Vital Signs
Temp Pulse Resp BP Pulse Ox
97.4 F 67 20 117/66 95
10/12/23 03:35 10/12/23 03:35 10/12/23 03:35 10/12/23 03:35 10/12/23 03:35
I&O
10/11/23 10/12/23 10/13/23
06:59 06:59 06:59
Intake Total 120 / 120 600 / 600
Output Total 200 / 200
Balance 120 / 120 400 / 400
[2023-10-12] MEDS: THERAGRAN 1 TABLET PO (11:40)
[2023-10-12] MEDS: VITAMIN B1 200 MG PO (11:40)
[2023-10-12 12:48] LABS: Vitamin B12 397 pg/ml (239-931)
--- NOTE | 2023-10-12 15:49 | CM ---
i met with patient at [facility].also spoke with son about patient going back to [facility] or to a [facility] facility.i spoke with shawn at [facility] and told her patient did much better in therapy today and is an assist of 1 yesterday he was an assist of 2
people.darrell felt that patient should go to snf since he my go back to an assist of 2 people the next day. i asked therapy if they could see patient tomorrow and she will make sure he is on the list.i have also spoken to nisha curry who have given me
snf choices.referrals sent to [facility].plan back to [facility] at [facility] vs snf .
[2023-10-12] MEDS: FLOMAX 0.4 MG PO (22:05)
[2023-10-13 06:00] VITALS: BMI 28.3
[2023-10-13 07:43] VITALS: BP 140/79
[2023-10-13 07:55] LABS: Glucose - Point of Care 106 mg/dl (70-99)
[2023-10-13] MEDS: HEPARIN 5000 UNITS SC (08:18)
[2023-10-13] MEDS: PROSCAR 5 MG PO (08:19)
[2023-10-13] MEDS: KEPPRA 500 MG PO (08:19)
[2023-10-13] MEDS: DECADRON 1 MG PO (08:19)
[2023-10-13] MEDS: THERAGRAN 1 TABLET PO (08:19)
[2023-10-13] MEDS: VITAMIN B1 200 MG PO (08:19)
[2023-10-13] MEDS: LOW STRENGTH ASPIRIN 81 MG PO (08:19)
[2023-10-13 08:39] VITALS: BP 113/77; BP 141/76; BP 150/79; PULSE 54; PULSE 60; PULSE 82
--- NOTE | 2023-10-13 09:03 | W.PN.HOSP.TC ---
Addendum entered and electronically signed by Jocelynn Lopez MD 10/14/23 13:12:
Addendum
d/w nursing staff, stable vital signs
pt wants to go back to his place
d/w welfare case worker, daughter will pick him up
Total discharge time spent to see the patient, examine the patient on the floor, review data and lab results, discuss discharge plan with patient, welfare case worker, nursing staff around 67 minutes.
Original Note:
Today's Communication/Plan
-
Await discharge
Assessment / Plan
Assessment / Plan
Physical Exam
General: No Apparent Distress, Comfortable and Obese
HEENT: Atraumatic
Respiratory: Clear
Cardiac: S1/S2 and Regular Rhythm
GI: Soft and Non Tender
Genito-urinary: No costovertebral tender
Musculoskeletal: No Cyanosis and No Edema
Skin: Warm; No Jaundice
Neuro: Awake and Other (followed simple commands )
Psych: Apparent Dementia, mildly agitated earlier.
73 male presented from [place] after experiencing near syncopal episode, had low blood pressure also
71-year-old with past medical history for glioblastoma diagnosed 5 years ago underwent tumor resection, received radiation and chemo presented to the to us with worsening confusion over last few weeks.�Found to have �9 mm subacute versus old
nonhemorrhagic lacunar infarct in the anterior limb of the internal capsule and anterior aspect of the lentiform nucleus on the right.�
#Near syncopal episode without loss of consciousness
Reported low blood pressure at [place] and in Ambulance
Near syncopal episode was associated with passing bowel movement at the [facility].
s/p IVF with good recovery to blood pressure
Orthostatic vital signs are stable although there is mild standing low BP in comparison to sitting BP but patient felt normal. We can add low Midodrine as PRN.
No cardiac arrhythmia on heart monitor.
Negative troponin twice
Repeat blood work including CBC & BMP was normal.
No leukocytosis. No fever. EKG with no acute ischemic changes.
CT head with no acute changes
Consulted PT/OT, seemed to recommend back to his place now, will - re-evaluate
# History of loose stools, Nod iarrhea reported by staff. Pt denied abdominal pain.
#Hypokalemia
resolved.
#Glioblastoma, s/p surgery and radiation, with subsequent decline in cognitive function.
#Radiation injury and radiation post effects
-We will continue Decadron
Continue with Keppra
Son Marcelo came to see his father. He reported that patient looked different, needed neurology evaluation. 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 Primary care doctor
of the pt recommended neurology evaluation two months ago. Unfortunately, patient is poor historian due to underlying cognitive impairment. I consulted neurology, neurology recommended change to seizure medicine but family declined for now, per
neurology, pt is stable to leave input appreciated.
#BPH
-monitored for retention
# Chronic Gait dysfunction
PT/OT, recommended SNF
Chronic left hip OA
#DVT prophylaxis
Subcu heparin
Total time spent to see the patient, examine the patient on the floor, review data and lab results, discuss treatment plan with patient, his son Marcelo, nursing staff around 45 minutes.
Anticipated Discharge: Today
Subjective/Interval History
-
Date of Service: October 13, 2023
No events
Objective Data
-
Vital Signs:
Vital Signs
Temp Pulse Resp BP Pulse Ox
97.8 F 55 18 140/79 96
10/13/23 07:43 10/13/23 07:43 10/13/23 07:43 10/13/23 07:43 10/13/23 07:43
I&O
10/12/23 10/13/23 10/14/23
06:59 06:59 06:59
Intake Total 600 / 600 700 / 700
Output Total 200 / 200 475 / 475
Balance 400 / 400 225 / 225
--- NOTE | 2023-10-13 10:10 | PN.CDI ---
Addendum entered and electronically signed by Jocelynn Lopez MD 10/13/23 10:46:
Dementia with behavioral disturbances
Original Note:
CDI
- -
CDI:
Physician Documentation Request
Admit Date: 10/10/23 15:33
Dear Doctor John,
Patient admitted with near syncopal episode.
10/11 PN, 'Psych: Apparent Dementia, mildly agitated earlier.'
10/10 Neuro consultation, ' chief complaint of altered mental status...Differentials for the patient's presentation include: 1. Dementia with sundowning....As per the son pat gets restless and agitated in the evening'
Based on the above, please clarify in your note the most likely etiology of the confusion/altered mental status:
Dementia with behavioral disturbances
Dementia with sundowning
Other
Use of terms such as suspected, likely, concern for, or probable (associated with a specific diagnosis that is being evaluated, monitored, or treated as if it exists) are acceptable and can be coded in the inpatient setting, when documented at the
time of discharge.
Thank you,
Stacia CHU,RN,CCDS
CDI Specialist
Available via tiger Text
Please use your independent medical judgment in providing your response.
--- NOTE | 2023-10-13 10:12 | CM ---
Addendum entered by Meron Bain RN 10/13/23 12:04:
PT OT saw patient .
Spoke with Gaviota at [facility] or [facility] and she accepted him back. notified need paper script for PT OT at [facility] to resume therapy.
Spoke with michael Bautitsa she will drive him back.
[facility]
report [phone] ext [phone]
fax [phone]
PLAN Return to [facility] assisted living
Original Note:
Md entered order for discharge.
Requested PT OT see pt today.
Spoke with Lily rodriguez she said she would prefers him returning for [facility] assisted living . She feels he is back to baseline.
She feels she or family will be able transport him back to [facility].
UYEN reviewed with dgt. UYEN emailed her a copy to [email or web address]
Will contact Jeny after PT OT done.
PLAN return to [facility] if appropriate
[2023-10-13 10:41] VITALS: BP 113/77; PULSE 76
--- NOTE | 2023-10-13 13:53 | W.DCSUMMARY ---
Discharge Summary
Discharge Data
Date of Admission: 10/10/23
Date of Discharge: 10/13/23
-
Pending Results: No
Hospital Course
73 years old male presented with hypotension and near syncopal episode. Patient was found to have low blood pressure and possible dehydration. he had mild hypokalemia. Patient was given intravenous fluid with good blood pressure response. Staff
at the [facility] reported that patient had near syncopal episode when he had loose bowel movements. Scan of the head showed mild atrophy with signs of small vessel ischemic disease, stable moderate encephalomalacia in left temporal lobe likely
postsurgical change, stable midline shift to the right. Patient was monitored on cardiac telemetry for more than 48 hours with no cardiac arrhythmias noted.Orthostatic vitals were checked twice a day. Patient was noted to have stable blood pressure
in supine position. Upon standing his blood pressure dropped infrequently but not significantly to be consistent with orthostatic hypotension. Patient did not have symptoms with variation in his blood pressure. He was noted to have weakness and
needed physical therapy evaluation. Subsequent evaluation from PT/OT showed improvement in his gait and mobility, he was deemed stable to go back to his baseline at the [facility]. He did not have leukocytosis. No fever. No changes were made
to his home medications. Family requested neurology evaluation for worsening confusion and behavioral changes over the last few months. Neurology evaluated the patient and suggested to change Keppra to Depakote to provide better control of
behavioral disturbances. Family declined to change medications. Urine test did not show cloudy urine with negative nitrite, leukocytes. Patient remained hemodynamically stable and was discharged in a stable condition.
Discharge Plan
-
Patient Disposition: Assisted/SNF
Discharge Diagnosis/Procedures: Vasovagal syncope, hypotension
Check orthostatic blood pressure PRN dizziness. -
Started on vitamin therapy.
Diet: As tolerated
Referrals:
Alejandro Garcia MD [Active] - in two to three weeks
Melo Carlson MD [Family Provider] - in one to two weeks
Prescriptions:
New
thiamine HCl (vitamin B1) 100 mg Tablet
200 mg PO DAILY Qty: 30 0RF
multivitamin with folic acid [Tab-A-Tayo] 400 mcg Tablet
1 tab PO DAILY Qty: 30 0RF
midodrine 2.5 mg tablet
2.5 mg PO BIDPRN PRN (Reason: Dizziness with hypotension) Qty: 10 0RF
Rx Instructions:
for standing systolic blood pressure lower than supine BP by more than 20 mmHg with dizziness.
Continued
levetiracetam 500 mg Tablet
500 mg PO BID
tamsulosin 0.4 mg Capsule
0.4 mg PO HS
dexamethasone 2 mg tablet
1 mg PO DAILY
aspirin 81 mg Tablet,Chewable
81 mg PO DAILY Qty: 0 0RF
atorvastatin 40 mg tablet
40 mg PO DAILY
dutasteride 0.5 mg Capsule
0.5 mg PO DAILY Qty: 90 0RF
Patient Comments:
12/31/21- spouse say he still takes this but hasnt not been filled in 2021, and patient does not use mail order
Discharge Orders:
Discharge Patient (As Directed); Ordered 10/12/23
Ordered By: Jocelynn Lopez
Discharge Date and Time
Discharge Date/Time: 10/13/23 15:47
Print Language: LATVIAN
[2023-10-13 14:32] VITALS: BP 144/85
== END 2023-10-13 15:47 | DRG 315 ==
LOC: 3 WEST ACU 15:33
PROVIDERS: Physician Assistant; ADMITTING PHYSICIAN Internal Medicine; CONSULT PHYSICIAN Psychiatry & Neurology Neurology; EMERGENCY PHYSICIAN Emergency Medicine; FAMILY PHYSICIAN Internal Medicine
DX: I95.9 Hypotension, unspecified (principal); C71.2 Malignant neoplasm of temporal lobe; F03.918 Unspecified dementia, unspecified severity, with other behavioral disturbance; E87.6 Hypokalemia; T66.XXXA Radiation sickness, unspecified, initial encounter; N40.0 Benign prostatic hyperplasia without lower urinary tract symptoms
CPT/HCPCS: 70450; 80048; 80053; 81003; 81015; 82607; 82962; 84484; 85025; 85027; 87070; 93005; 95816; 97116; 97163; 97167; 97530; 97535; 99285

== ENCOUNTER 2023-11-20 05:55 | Inpatient (IN) | payer MEDICARE, OTHER, SELFPAY ==
[2023-11-20] VITALS (7 sets, daily range): BP systolic 100–125; BP diastolic 53–75; BMI 28.7; BMI 28.2
[2023-11-20 04:10] LABS: % Basophils 0.2 % (0-2); % Eosinophils 0.1 % (0-6); % Immature Granulocytes 0.9 % (0-0.5); % Lymphocytes 4.2 % (20.5-51.1); % Monocytes 5.6 % (1.7-9.3); Absolute Immature Granulocytes 0.2 10^3/uL (0-0.05); Absolute Lymphocytes 0.8 10^3/uL (1.2-3.4); Absolute Monocytes 1.1 10^3/uL (0.1-0.6); Absolute Neutrophils 16.7 10^3/uL (1.4-6.5); Hematocrit 41.5 % (39.0-52.0); Hemoglobin 14.6 g/dL (13.0-18.0); Mean Corp Hgb Conc. 35.2 g/dL (33.0-37.0); Mean Corpuscular Hgb 31.5 pg (27.0-31.0); Mean Corpuscular Volume 89.6 fL (80.0-94.0); Mean Platelet Volume 9.5 fL (7.4-10.4); Nucleated Red Blood Cells % 0 % (-); Platelet Count 196 10^3/uL (130-400); Red Blood Cell Count 4.63 10^6/uL (4.70-6.10); Red Cell Dist. Width 14.6 % (11.5-14.5); White Blood Cell Count 18.8 10^3/uL (4.8-10.8)
[2023-11-20 04:19] LABS: COVID-19 Antigen Negative (Negative)
[2023-11-20 04:25] LABS: Urine Albumin 2+ (Neg - Trace); Urine Bilirubin Negative (Negative); Urine Character Very Cloudy (Clear); Urine Color Yellow; Urine Glucose Negative (Negative); Urine Ketone Trace (Negative); Urine Leukocyte 2+ (Negative); Urine Nitrite Negative (Negative); Urine Occult Blood 3+ (Negative); Urine Specific Gravity 1.015 (<1.030); Urine Urobilinogen 1+ (Neg - 1+)
[2023-11-20] MEDS: TORADOL 30 MG IV (04:29)
[2023-11-20 04:30] LABS: ALT (SGPT) 35 U/L (0-50); AST (SGOT) 73 U/L (17-59); Albumin 4.3 g/dl (3.5-5.0); Alkaline Phosphatase 69 U/L (38-126); Blood Urea Nitrogen 17 mg/dl (9-20); Calcium 9.1 mg/dl (8.4-10.2); Carbon Dioxide 21 mmol/L (22-30); Chloride 104 mmol/L (98-107); Estimated Creatinine Clearance 89 ml/min; Glucose 158 mg/dl (70-99); Potassium 4.5 mmol/L (3.5-5.1); Sodium 139 mmol/L (135-145); Total Bilirubin 2.2 mg/dl (0.2-1.3); eGFR > 60.00
--- NOTE | 2023-11-20 04:30 | EDRN ---
tried to give patient tylenol for fever, son at bedside reports patient has no issues swallowing pills, had patient drink sip of water, did fine,when he tried to swallow the tylenol and was unable to, informed Dr. Jasso, changed order to IV
torodol.
--- NOTE | 2023-11-20 04:50 | ED.GENMED ---
History of Present Illness
General
Chief Complaint: Weakness
Source: family
Exam Limitations: dementia
Time Seen by Provider: 11/20/23 04:41
History of Present Illness
History of Present Illness:
See MDM
Past History
Past History
ED Past Medical History: Cancer (Glioblastoma), CVA and Hypercholesterolemia
ED Past Surgical History: Appendectomy and Brain (Resection of astrocytoma)
Social History
Tobacco: Non-smoker
Alcohol: None
Drug: None
Personal:
Living: with family
Phy Exam
Physical Exam
Physical Exam:
See MDM
Course
Orders/Labs/Results
Orders:
Orders
11/20/23 03:56
CMP [Comprehensive Metabolic Panel] Urgent
COVID-19 Antigen Urgent
Source: Nasal Swab
Complete Blood Count/With Diff Urgent
Urinalysis Reflex To Culture Urgent
Date Specimen was Collected: 11/20/23
Time Specimen was Collected: 03:51
Urine Microscopic Reflex Cult Urgent
Urine Culture Urgent
AZIZA Source: U
Specimen Description:
Date Specimen was Collected: 11/20/23
Time Specimen was Collected: 03:51
11/20/23 04:02
Lactate Level [Lactic Acid] Urgent
11/20/23 04:23
Acetaminophen [Tylenol] 650 mg .ROUTE .STK-MED ONE
11/20/23 04:24
Acetaminophen [Tylenol] 650 mg PO NOW STA
11/20/23 04:28
Ketorolac [Toradol] 30 mg .ROUTE .STK-MED ONE
Ketorolac [Toradol] 30 mg IV NOW STA
11/20/23 04:48
Blood Culture Urgent
AZIZA Source: Blood/Venous
Specimen Description:
0.9% Sodium Chloride 1000 ml [Nss] 1,000 ml IV BOLUS
CefTRIAXone [Rocephin] 1,000 mg IV NOW STA
11/20/23 04:50
Blood Culture Urgent
AZIZA Source: Blood/Venous
Specimen Description:
Abnormal Lab Results
11/20/23 11/20/23
03:56 04:02
WBC 18.8 H 10^3/uL
(4.8-10.8)
RBC 4.63 L 10^6/uL
(4.70-6.10)
MCH 31.5 H pg
(27.0-31.0)
RDW 14.6 H %
(11.5-14.5)
Abs Immat Gran (auto) 0.2 H 10^3/uL
(0-0.05)
Absolute Neuts (auto) 16.7 H 10^3/uL
(1.4-6.5)
Absolute Lymphs (auto) 0.8 L 10^3/uL
(1.2-3.4)
Absolute Monos (auto) 1.1 H 10^3/uL
(0.1-0.6)
Immature Gran % 0.9 H %
(0-0.5)
Neutrophils % 89.0 H %
(42.2-75.2)
Lymphocytes % 4.2 L %
(20.5-51.1)
Carbon Dioxide 21 L mmol/L
(22-30)
Glucose 158 H mg/dl
(70-99)
Lactic Acid 3.0 H mmol/L
(0.7-2.0)
Total Bilirubin 2.2 H mg/dl
(0.2-1.3)
AST 73 H U/L
(17-59)
Urine Ketones Trace A
(Negative)
Ur Occult Blood Reflex 3+ A
(Negative)
Leukocyte Esterase Rfl 2+ A
(Negative)
Urine Albumin (Reflex) 2+ A
(Neg - Trace)
11/20/23 03:56
11/20/23 03:56
Vital Signs
Initial and Last Documented VS:
Initial Vital Signs
Temp Pulse Resp BP Pulse Ox
100.3 F 106 22 125/73 96
11/20/23 03:52 11/20/23 03:52 11/20/23 03:52 11/20/23 03:52 11/20/23 03:52
Last Documented Vital Signs
Temp Pulse Resp BP Pulse Ox
101.3 F H 106 22 125/73 96
11/20/23 04:19 11/20/23 03:52 11/20/23 03:52 11/20/23 03:52 11/20/23 03:52
MDM/Problems Addressed
Differential Diagnosis Includes:
HPI and MDM Narrative:
73-year-old male presenting from a nursing facility for increased confusion. On arrival, patient found to be febrile. His son met him in the hospital and indicated that he is much more confused than baseline. Patient denies chest pain, cough or
shortness of breath. On exam, he is a soft and nontender abdomen. Blood work was obtained prior to my evaluation. Patient found to have leukocytosis and elevated lactic acid. Will start Rocephin with presumed UTI. Nursing staff indicated that
there was evidence of pyuria
Physical exam
General: Weak and fatigued, mildly confused
HEENT: protecting airway
Neck: supple
CV: No evidence of cyanosis
Resp: No accessory muscle use. Lungs clear
Abd: Non-distended
Extremities: No deformities
Neuro: alert
Psych: Flat affect
Skin: Warm
Problems Addressed including Acute and Chronic Conditions affecting care:
1. UTI
Acuity: acute
Prognosis: stable
Details: Given the confusion and history of dementia, will start Rocephin and admit. Patient found to have elevated white blood cell count and lactic acid. Will start IV fluids as well
2. [ ]
Acuity: acute
Prognosis: stable
Details:
3. [ ]
Acuity: acute
Prognosis: stable
Details:
4. [ ]
Acuity: acute
Prognosis: stable
Details:
5. [ ]
Acuity:
Prognosis:
Details:
Updates
Differential Diagnosis (but not limited to): UTI, pneumonia, COVID
Testing considered: Chest x-ray but lungs are clear
Drug therapy (if applicable): OTC meds, please see d/c instruction regarding Rx drugs
Amount and/or Complexity of Data Reviewed
Clinical info obtained from: Patient. Son states that he is much more confused than baseline
External data reviewed: N/A
Labs I independently reviewed (but not limited to): Elevated white blood cell count, elevated lactic acid
Radiology: N/A
Pulse Ox: not hypoxic
EKG independently reviewed: N/A
Audiovisual Aids Technician: Sinus tachycardia
Critical Care: N/A
Risk of Complication:
Social Determinants of health: Good social support
Discussed with other providers: Hospitalist
Escalation of Care includes Admit/Obs: Given the fever, UTI and confusion, will start antibiotics and admit
Occasional wrong word or 'sound a like' substitutions may have occurred due to the inherent limitations of voice recognition software. Read the chart carefully and recognize, using context, where substitutions have occurred.
*Critical Care Note
Total Time (30-74mins, 75-104mins- exclusive of procedures): Not Applicable
ED Attending Note
-
Portions of this chart may have been created with voice recognition software.� Occasional wrong word or��sound alike� substitutions may have occurred due to the inherent limitations of voice recognition software.
Discharge Plan
Departure
Patient Disposition: Admit
Date of Disposition: 11/20/23
Time of Disposition: 04:56
Admit to: Med/Surg
Presentation/result/management discussed w/ accepting MD/DO: Hospitalist
Discharge Problem:
Acute UTI, Altered mental status
Prescriptions:
No Action
levetiracetam 500 mg Tablet
500 mg PO BID
tamsulosin 0.4 mg Capsule
0.4 mg PO HS
dexamethasone 2 mg tablet
1 mg PO DAILY
aspirin 81 mg Tablet,Chewable
81 mg PO DAILY Qty: 0 0RF
atorvastatin 40 mg tablet
40 mg PO DAILY
thiamine HCl (vitamin B1) 100 mg Tablet
200 mg PO DAILY Qty: 30 0RF
multivitamin with folic acid [Tab-A-Tayo] 400 mcg Tablet
1 tab PO DAILY Qty: 30 0RF
midodrine 2.5 mg tablet
2.5 mg PO BIDPRN PRN (Reason: Dizziness with hypotension) Qty: 10 0RF
Rx Instructions:
for standing systolic blood pressure lower than supine BP by more than 20 mmHg with dizziness.
dutasteride 0.5 mg Capsule
0.5 mg PO DAILY Qty: 90 0RF
Patient Comments:
12/31/21- spouse say he still takes this but hasnt not been filled in 2021, and patient does not use mail order
Referrals:
Melo Carlson MD [Family Provider] -
Interventions
Interventions:
*Risk Screen - Suicide Last Done: 11/20/23 03:52
*General Assessment Last Done: 11/20/23 03:52
*Neglect/Abuse Screening Last Done: 11/20/23 03:52
ED- Fall Risk Assessment Last Done: 11/20/23 04:21
ED- Cardiac Assessment Last Done: 11/20/23 04:21
ED- Neurological Assessment Last Done: 11/20/23 04:21
ED- Pulmonary Assessment Last Done: 11/20/23 04:21
Discharge Date and Time
Print Language: KAZAKH
[2023-11-20] MEDS: ROCEPHIN 1000 MG IV (05:03)
[2023-11-20] MEDS: NSS 1000 IV (05:03)
[2023-11-20 05:07] LABS: Urine Squamous Cell 0-2 /LPF (Few)
[2023-11-20 05:08] LABS: Urine Bacteria Many (Negative); Urine Red Blood Cell 16-20 /HPF (0-2); Urine White Cell >100 /HPF (0-5)
--- NOTE | 2023-11-20 05:16 | HPS.HSE ---
Family Physician
-
Family Physician: Melo Carlson
Chief Complaint
-
Weakness and confusion
History of Present Illness
This is a 73-year-old was a past medical history of orthostatic hypotension, seizure disorder, hyperlipidemia, worsening dementia over the last several months who presents to the emergency department with lethargy and altered mental status.
Patient arrived in the emergency department somewhat somnolent and confused and unable to provide much history. Per the medical records from the senior living and the son the patient has been weak for about 2 days. Usually ambulates with an assist
device but was on able to perform. He also appeared more confused. Son says that at baseline is alert is oriented to person reports can still carry out a conversation. Son reports that he is currently more confused than baseline. They did not
note any focal deficits. He had no particular complaints. Patient himself denies any coughing or shortness of breath. He denies any headache. He denies any nausea or vomiting. He denies any diarrhea. He denies any abdominal pain. He denies
any chest pain. He denies having any headache. Patient Has No Hospitalizations since He Was Discharged from Here with Hypotension in October secondary to dehydration.
On arrival in the emergency department he was febrile to 101, blood pressure was 125/70 pulse was 104 and oxygen saturation was 94% on room air. Had leukocytosis to 18,000 with hemoglobin of 14.6 chemistries are within normal limits. Lactic acid
of 3.0 he had urine that was straight cath obtained with visual pulse and a UA with 2+ leukocyte esterase and pyuria, bacteriuria with some blood. COVID test is negative.
Medical History
Past Medical History
Past Medical History: Reports Dementia and Hypercholesterolemia
Additional Past Medical History:
BPH
Dizziness/orthostasis
Past Surgical History: Reports Other (Unable to determine)
Social History
Tobacco: Non-smoker
Alcohol: None
Drug: None
Living: Long Term
Employment: Retired
Family History
Family History: Not pertinent
Allergies / Home Medications
Allergies reflects when Allergies were last updated in [facility].
Home Medications with original date entered in [facility]
Allergy/Medication List:
Allergies
Allergy/AdvReac Type Severity Reaction Status Date / Time
No Known Allergies Allergy Verified 11/20/23 04:00
Home Medications
dexamethasone 2 mg tablet 1 mg PO DAILY Anti-inflammatory 12/31/21
levetiracetam 500 mg tablet 500 mg PO BID Seizures 12/31/21
tamsulosin 0.4 mg capsule 0.4 mg PO HS Urinary issue 12/31/21
aspirin 81 mg chewable tablet 81 mg PO DAILY #0 tabs 01/04/22
dutasteride 0.5 mg capsule 0.5 mg PO DAILY Urinary issue #90 caps 01/08/22
atorvastatin 40 mg tablet 40 mg PO DAILY High Cholesterol 10/10/23
midodrine 2.5 mg tablet 2.5 mg PO BIDPRN PRN Dizziness with hypotension #10 tabs 10/13/23
multivitamin with folic acid 400 mcg tablet (Tab-A-Tayo) 1 tab PO DAILY #30 tabs 10/13/23
thiamine HCl (vitamin B1) 100 mg tablet 200 mg (2 x 100 mg) PO DAILY #30 tabs 10/13/23
Review of Systems
-
Unable to obtain full review of systems at this time due to: Dementia
History Source: Family
Constitutional: Reports No Symptoms and Fatigue
EENT: Reports No Symptoms
Respiratory: Reports No Symptoms
Cardiac: Reports No Symptoms
Abdomen/GI: Reports No Symptoms
: Reports No Symptoms
Musculoskeletal: Reports No Symptoms
Skin: Reports No Symptoms
Neurological: Reports Weakness
Endocrine: Reports No Symptoms
Hematologic/Lymphatic: Reports No Symptoms
Psych: Reports Dementia
Physical Exam
Vital Signs
Vital Signs
Temp Pulse Resp BP Pulse Ox
101.3 F H 104 23 125/73 94
11/20/23 04:19 11/20/23 04:45 11/20/23 04:45 11/20/23 03:52 11/20/23 04:00
Physical Exam
General: Comfortable and Fever
HEENT: NormoCephalic, Anicteric, Atraumatic and Other (dry mucus membranes)
Respiratory: Clear
Cardiac: S1/S2, Regular Rhythm and Tachycardia
Breast: Deferred by me
GI: Soft, Non Tender, Normal Bowel Sounds and Distended
Rectal: Deferred by Provider
Genito-urinary: Turbid Urine
Musculoskeletal: No Clubbing, No Cyanosis and Other (trace bilateral LE edema)
Skin: Warm
Neuro: Oriented (oriented x 1 to person.), No Motor Deficits (strenght 5/5 in the bilateral UE, 4/5 in the bilateral LE most notable at the hip) and Other (sleepy but arousable. Follows simple commands. )
Hematologic/Lymphatic: No Lymphadenopathy
Psych: Calm, Confused and Apparent Dementia
Laboratory Results
-
11/20/23 03:56
11/20/23 03:56
Laboratory Results
Lactic Acid 3.0 mmol/L (0.7-2.0) H 11/20/23 04:02
Total Bilirubin 2.2 mg/dl (0.2-1.3) H 11/20/23 03:56
AST 73 U/L (17-59) H 11/20/23 03:56
ALT 35 U/L (0-50) 11/20/23 03:56
Alkaline Phosphatase 69 U/L (38-126) 11/20/23 03:56
Data Reviewed
-
Lab Data: Labs Reviewed by me
Old Records: Reviewed
Impression/Plan
-
IMPRESSION:
73 y.o with history of progressive dementia, seizure d/o, BPH coming in from [place] with lethargy, confusion and weakness. Febrile with pyuria in ED. Normal oxygen on RA w/o any respiratory symptoms. COVID negative.
PLAN:
1. Toxic Metabolic Encephalopathy - Dementia with febrile illness, likely urinary source. Labs otherwise unremarkable. Remains on Keppra.
- admit to med/surg
- maintenance iv fluids
- npo for now as unable to swallow meds, dysphagia screen in am (was on regular diet at home)
- iv keppra bid for now
- interms of source, no respiratory symptoms so no indication for xray.
- ct head to rule out intracranial process (low likelihood)
- iv thiamine daily
- convert iv to oral and restart oral meds once passed swallow eval (asa 81, statin, tamsulosin dutasteride)
2. Complicated cystitis/pyelo - Patient with pyuria and bacteruria from senior living dementia unit. Straight cath for urine in ED. H/O BPH as likely predisposing factor but no known retention. Baseline renal function.
- blood and urine cultures
- IV ceftriaxone for now
- monitor output and bladder scan for retention
- continue tamsulosin and dutasteride
3. Weakness - Ambulates with walker. No focal deficits
- treat infection
- iv fluids
- PT eval
4. Orthostatic hypotension - hemodynamically stable
- iv fluid
- continue midodrine prn
DVT PPX - Lovenox sq
Code status - D/W son Mr Marcelo Sabillon and patient is full code.
--- NOTE | 2023-11-20 06:36 | EDRN ---
Patient moaning out, needed to urinate, provided urinal, patients brief incontinent to urine, changed brief, re-checked temp and pulled up in bed.
[2023-11-20] MEDS: KEPPRA 500 MG IV ×2 (08:46→20:21)
[2023-11-20] MEDS: D5/0.9% SODIUM CHLORIDE 1000 IV ×2 (08:46→20:20)
[2023-11-20] MEDS: THIAMINE INJECTION 200 MG IV (08:46)
[2023-11-20] MEDS: TORADOL 10 MG IV (08:51)
--- NOTE | 2023-11-20 10:17 | PTOTSP ---
ST Evaluation
Mild oral dysphagia; benefits from strategy use. Cog-comm difficulties; baseline dementia
Pt received asleep awoke to verbal/tactile stim. Repositioned upright in bed prior to PO trials of puree, regular solids and thin liquids. Regular solids demo mildly prolonged munch chew pattern. Decreased bolus cohesion benefits from moisture
injection. Thin liquids by straw sip swallow appears timely. No overt s/sx of aspiration observed.
Recommendation
1. Regular solids/thin liquids
2. Aspiration precautions
3. Tray set up including cutting up larger solids into smaller bite-size pieces. Supervision for cueing purposes
4. Small bites, add moisture to solids via gravy/sauce/dips, alternate liquids/solids and slow rate
5. Meds oral per RN discretion
6. DIRECTOR OF SUSTAINABILITY PROGRAMS follow up; monitor diet tolerance
[2023-11-20] MEDS: PROSCAR PO (11:24)
--- NOTE | 2023-11-20 11:25 | PTCARENOTE ---
Addendum entered by Fiordaliza Carson RN 11/20/23 13:40:
pt's son Marcelo updated on plan of care by DR Savage
Original Note:
Rec'd pt from the ER at the change of shift. Transferred over in to bed. Pt only oriented to himself. D5NS started as ordered. Order in for strict npo pending video swallow test. Dr Savage at bedside and made aware of orders. He place speech
evaluation order in. pt was seen and speech therapist stated he would be good for regular diet with assistance. Dr Savage aware and stated he will update orders so pt can eat and have po medications. No family present so admission was difficult
to perform as he wasn't able to answer questions.
--- NOTE | 2023-11-20 11:34 | W.PN.HOSP.TC ---
Today's Communication/Plan
-
Continue treatment for UTI/sepsis
IV Keppra in lieu of patient's home PO Keppra in case patient has confusion and cannot swallow PO Keppra
Stress Dose Steroids for now
I updated patient's son Marcelo
Assessment / Plan
Assessment / Plan
Physical Exam
General: Not in acute distress
HEENT: Normocephalic
Respiratory: Clear to Auscultation Bilaterally
Cardiac: S1/S2, Regular Rhythm and Tachycardia
GI: Soft, Non Tender, Normal Bowel Sounds and Distended
Genito-urinary: Turbid Urine
Musculoskeletal: No Cyanosis and Other (trace bilateral LE edema)
Skin: Warm
Neuro: Awake. Alert. Oriented (oriented x 1 to person.), No Motor Deficits (strenght 5/5 in the bilateral UE, 4/5 in the bilateral LE most notable at the hip)
Psych: Calm, Confused and Apparent Dementia

CT HEAD ( PER RADIOLOGIST'S REPORT)
IMPRESSION:
No acute intracranial abnormality noted.
Stable postsurgical change of the left temporal lobe.
Stable calcifications posteriorly from 05/2023. Similar finding on prior MR exam 01/01/2022. This may also be postsurgical change. Residual disease cannot be excluded.
Stable midline shift to the right.
Stable mild nonacute sinusitis.
A preliminary report was provided by [facility].

Assessment/Plan
73 y.o with history of progressive dementia, seizure d/o, BPH coming in from [facility] with lethargy, confusion and weakness. Febrile with pyuria in ED. Normal oxygen on RA w/o any respiratory symptoms. COVID negative.
#Toxic Metabolic Encephalopathy - Dementia with febrile illness, likely urinary source. Labs otherwise unremarkable. Remains on Keppra.
#Sepsis Secondary to suspected UTI
- maintenance iv fluids
- Speech saw patient on 11/20/23 and he can swallow okay -- resume regular diet with thin liquids
- IV Keppra 500 mg Q12H (in place of patient's home Keppra PO 500 mg BID) for now as patient has times of lethargy during which he may not be able to safely swallow (even though Speech said he can swallow Regular Diet 11/20/23 earlier in the day)
- In terms of source, no respiratory symptoms so no indication for xray.
- ct head with no acute process. per neurosugery the midline shift is an over-reading by radiology (see below). Appreciate neurosurgeon's help.
- Replace patient's home Dexamethasone 1 mg PO daily with Hydrocortisone IV 50 mg Q6H for now for stress dosing given suspected sepsis
- Confirmed with neurosurgeon that Hydrocortisone is an acceptable replacement for Dexamethasone (in light of patient's history of HOMICIDE SQUAD LIEUTENANT disease) since equivalent dose is higher
#Complicated cystitis/pyelo - Patient with pyuria and bacteruria from [facility] unit. Straight cath for urine in ED. H/O BPH as likely predisposing factor but no known retention. Baseline renal function.
- blood and urine cultures
- IV ceftriaxone for now
- monitor output and bladder scan for retention
- continue tamsulosin and dutasteride
#Weakness - Ambulates with walker. No focal deficits
- treat infection
- iv fluids
- PT eval
#Orthostatic hypotension - hemodynamically stable
- iv fluid
- continue midodrine prn
#Stable Midline Shift on CT Head, according to radiologist's report
-Consulted Neurosurgery on 11/20/23 who mentioned that this is a radiology over-reading - nothing surgical or no mass lesion present on CT Head from 11/20/23
DVT Prophylaxis: Lovenox sq
Code status: Full Code
Patient's son Marcelo Sabillon is the primary contact for the patient.
On 11/20/23, I called patient's son Marcelo Sabillon and updated him on current status and management plan. All questions and concerns were answered.
Anticipated Discharge: > 48 hours
Subjective/Interval History
-
Date of Service: November 20, 2023
Patient was seen and examined. He denied any new significant symptoms or complaints. He continues to have fevers.
Objective Data
-
Labs:
Laboratory Results
11/20/23
03:56
WBC 18.8 H
Hgb 14.6
Hct 41.5
Plt Count 196
Sodium 139
Potassium 4.5
Chloride 104
Carbon Dioxide 21 L
BUN 17
Creatinine 0.8
Glucose 158 H
Calcium 9.1
Total Bilirubin 2.2 H
AST 73 H
ALT 35
Alkaline Phosphatase 69
Vital Signs:
Vital Signs
Temp Pulse Resp BP Pulse Ox
100.6 F H 104 16 117/75 98
11/20/23 08:51 11/20/23 08:18 11/20/23 08:18 11/20/23 08:18 11/20/23 08:15
[2023-11-20] MEDS: DECADRON 1 MG PO (11:48)
[2023-11-20] MEDS: PROSCAR 5 MG PO (11:48)
[2023-11-20] MEDS: LOW STRENGTH ASPIRIN 81 MG PO (13:07)
[2023-11-20] MEDS: TYLENOL/FEVERALL 650 MG RECTAL (13:07)
[2023-11-20] MEDS: LIPITOR 40 MG PO (13:07)
[2023-11-20] MEDS: SOLU-CORTEF 50 MG IV ×2 (13:57→20:20)
[2023-11-20] MEDS: LOVENOX 40 MG SC (17:08)
[2023-11-20 19:44] LABS: Lactic Acid 2.1 mmol/L (0.7-2.0)
[2023-11-20 19:57] LABS: Blood Urea Nitrogen 17 mg/dl (9-20); Calcium 7.9 mg/dl (8.4-10.2); Carbon Dioxide 20 mmol/L (22-30); Chloride 107 mmol/L (98-107); Estimated Creatinine Clearance 89 ml/min; Glucose 206 mg/dl (70-99); Potassium 3.7 mmol/L (3.5-5.1); Sodium 137 mmol/L (135-145); eGFR > 60.00
[2023-11-20] MEDS: FLOMAX 0.4 MG PO (21:15)
[2023-11-20 21:18] LABS: Glucose - Point of Care 178 mg/dl (70-99)
[2023-11-21] MEDS: SOLU-CORTEF 50 MG IV ×2 (02:19→08:15)
[2023-11-21 03:29] VITALS: BP 113/75
[2023-11-21] MEDS: STERILE WATER FOR INJECTION 10 ML IV ×3 (04:00→21:16)
[2023-11-21] MEDS: ROCEPHIN 1000 MG IV (04:01)
[2023-11-21 05:40] LABS: Lactic Acid 1.1 mmol/L (0.7-2.0)
[2023-11-21 06:05] LABS: % Basophils 0.1 % (0-2); % Eosinophils 0.1 % (0-6); % Immature Granulocytes 1.3 % (0-0.5); % Lymphocytes 2.4 % (20.5-51.1); % Monocytes 2.7 % (1.7-9.3); % Neutrophils 93.4 % (42.2-75.2); Absolute Immature Granulocytes 0.2 10^3/uL (0-0.05); Absolute Lymphocytes 0.4 10^3/uL (1.2-3.4); Absolute Monocytes 0.5 10^3/uL (0.1-0.6); Absolute Neutrophils 16.9 10^3/uL (1.4-6.5); Hematocrit 35.7 % (39.0-52.0); Hemoglobin 12.2 g/dL (13.0-18.0); Mean Corp Hgb Conc. 34.2 g/dL (33.0-37.0); Mean Corpuscular Hgb 32.1 pg (27.0-31.0); Mean Corpuscular Volume 93.9 fL (80.0-94.0); Mean Platelet Volume 9.4 fL (7.4-10.4); Nucleated Red Blood Cells % 0 % (-); Platelet Count 145 10^3/uL (130-400); Red Cell Dist. Width 14.7 % (11.5-14.5); White Blood Cell Count 18.1 10^3/uL (4.8-10.8)
[2023-11-21 06:15] LABS: Blood Urea Nitrogen 15 mg/dl (9-20); Carbon Dioxide 21 mmol/L (22-30); Chloride 109 mmol/L (98-107); Estimated Creatinine Clearance 102 ml/min; Glucose 151 mg/dl (70-99); Potassium 3.4 mmol/L (3.5-5.1); Sodium 140 mmol/L (135-145); eGFR > 60.00
[2023-11-21 07:25] VITALS: BP 115/76
[2023-11-21 07:38] LABS: Glucose - Point of Care 146 mg/dl (70-99)
[2023-11-21] MEDS: LOW STRENGTH ASPIRIN 81 MG PO (08:14)
[2023-11-21] MEDS: THERAGRAN 1 TABLET PO (08:14)
[2023-11-21] MEDS: VITAMIN B1 200 MG PO (08:14)
[2023-11-21] MEDS: PROSCAR 5 MG PO (08:15)
[2023-11-21] MEDS: LIPITOR 40 MG PO (08:15)
[2023-11-21] MEDS: KEPPRA 500 MG IV ×2 (08:17→21:17)
--- NOTE | 2023-11-21 08:20 | W.PN.HOSP.TC ---
Addendum entered and electronically signed by Td Bravo MD, Resident 11/21/23 10:33:
Febrile in the past 24 hours. Dc stress dose steroids. Consult ID
Addendum entered and electronically signed by Vlad Estrada MD 11/21/23 10:17:
I saw and evaluated the patient. I reviewed the resident�s note and agree with findings and plan as documented in the resident�s note.
Addendum entered and electronically signed by Vlad Estrada MD 11/21/23 10:16:
I saw and examined the patient.
The RN INTERVENTIONAL or PA's note was reviewed and I agree with the note.
Comment: No new complaints
No acute distress, awake and alert
Regular rate and rhythm, normal S1-S2
Clear to auscultation bilaterally
Cranial nerves II to XII are intact
UCx with GNR
Acute metabolic encephalopathy due to sepsis due to UTI:
-currently ordered Cefepime
-c/s ID
-follow BCxs which gautam NGTD
-stop stress dose steroids (not indicated at pt is only on Decadron 1mg daily)
-febrile yesterday
-trend leukocytosis (currently with a component of steroid-induced leukocytosis)
Hypokalemia: PO K
Original Note:
Today's Communication/Plan
-
UC positive for gram neg bacilli
DC ceftriaxone.
Switch to cefepime
BC no growth
Renal bladder US
PT/OT
Assessment / Plan
Assessment / Plan
Impression
Acute toxic metabolic encephalopathy
Complicated UTI
Acute urinary retention
Orthostatic hypotension
Advanced dementia
Weakness
s/p left temporal glioblastoma
History of seizures
BPH
HLD
Assessment/Plan
Acute Toxic metabolic encephalopathy
Patient is not coherent
Continue IV fluids
Possibly due to UTI, unclear source
No electrolyte abnormalities on BMP
Continue IV Keppra BID and IV hydrocortisone and IV thiamine
Speech swallow study - regular diet
Aspiration precautions
Complicated UTI
Patient has no urine output
Bladder scan and straight cath
UC shows gram negative bacilli
Stop ceftriaxone. Switch to IV cefepime 2g IV q12
Not much improvement in WBC count
No fevers in the past 24 hours
Continue to monitor temp curve and WBC count
Acute urinary retention
Patient is on dutasteride and tamsulosin
Renal and bladder US to r/o hydronephrosis/renal etiologies
No urine output.
Bladder scan volume - 78 ml
Orthostatic hypotension
continue Midodrine
Weakness
PT/OT
No aphasia, motor weakness, slurred speech, facial droop. Sensation is intact
Brain tumor s/p left frontotemporal craniotomy
Continue IV hydrocortisone
BPH
Continue dutasteride and tamsulosin
Monitor BP
History of seizure
continue Keppra
HLD
continue atorvastatin
DVT Prophylaxis: Lovenox sq
Code status: Full Code
Anticipated Discharge: > 48 hours
Subjective/Interval History
-
Date of Service: November 21, 2023
Patient is not coherent. He denies pain.
Objective Data
-
Labs:
Laboratory Results
11/21/23
05:16
WBC 18.1 H
Hgb 12.2 L
Hct 35.7 L
Plt Count 145 D
Sodium 140
Potassium 3.4 L
Chloride 109 H
Carbon Dioxide 21 L
BUN 15
Creatinine 0.7
Glucose 151 H
Calcium 8.0 L
Vital Signs:
Vital Signs
Temp Pulse Resp BP Pulse Ox
97.7 F 78 20 115/76 95
11/21/23 07:25 11/21/23 07:25 11/21/23 07:25 11/21/23 07:25 11/21/23 07:25
I&O
11/20/23 11/21/23 11/22/23
06:59 06:59 06:59
Intake Total 1465 / 1465
Balance 1465 / 1465
Review of Systems
-
Unable to obtain full review of systems at this time due to: Dementia
Physical Exam
-
General: No Apparent Distress
HEENT: Normocephalic, Atraumatic and PERRLA
Respiratory: Clear to Auscultation
Cardiac: Regular Rhythm and S1/S2
GI: Soft, Nontender and Nondistended
Genito-urinary: Cespedes
Neuro: Other (not coherent, not oriented to time, place or person, oriented to himself only )
Psych: Confused and Apparent Dementia
Data Reviewed
-
Labs: Labs Reviewed by me and Discussed with Physician
[2023-11-21] MEDS: D5/0.9% SODIUM CHLORIDE 1000 IV (08:36)
--- NOTE | 2023-11-21 10:32 | CON.ID ---
Consultation
-
Date/Time Consultation Requested: November 21, 2023 1015
Date/Time Consultation Performed: November 21, 2023 1035
Requesting Provider: Dr. Vlad Estrada
Performing Provider: Dr. Batsheva Reyes
Reason for Consultation: Sepsis, UTI
Chief Complaint / Past History
Chief Complaint
Weakness
History of Present Illness
History obtained from review of medical records since pt with dementia, unable to provide meaningful history. 73 year old male from SNF with hx of dementia, BPH, seizure disorder who presented to ED due to several days of weakness and
lethargy. In ED, T=101.3, WBC 18.8. Lactic acid elevated. UA >100 wbc. He was started on ceftriaxone then changed to cefepime today.
Past History
Additional Past Medical History:
Dementia
hx of left temporal glioblastoma
Seizure disorder
BPH
Dyslipidemia
Orthostatic hypotension
Allergy History:
No Known Allergies Allergy (Verified 11/20/23 04:00)
Medications Reviewed: Yes
Current Antibiotics:
cefepime 2g IV q12h (d2)
Social History
Tobacco: Non-Smoker
Alcohol: None
Drug: None
Living: Long-Term
Family History
Family History: Not Pertinent
Review of Systems
Review of Systems
Unable to obtain due to dementia.
Vital Signs
Temp Pulse Resp BP Pulse Ox
97.7 F 78 20 115/76 95
11/21/23 07:25 11/21/23 07:25 11/21/23 07:25 11/21/23 07:25 11/21/23 07:25
Selected Entries
11/20/23
15:53
Temp 101.3 F H
Physical Exam
Physical Exam
Constitutional: No Acute Distress and Comfortable
Eyes: No Conjunctival Hemorrhage and Sclera Anicteric
Cardiovascular: Regular Rate
Pulmonary: Clear
Gastrointestinal: Soft, Non Tender and Non Distended
Genito-Urinary: Negative CVA Tenderness
Extremities: Negative Edema
Neurological: Awake and Alert
Lab / Diagnostic Study Results
11/21/23 05:16
11/21/23 05:16
Abs Immat Gran (auto) 0.2 10^3/uL (0-0.05) H 11/21/23 05:16
Absolute Neuts (auto) 16.9 10^3/uL (1.4-6.5) H 11/21/23 05:16
Absolute Lymphs (auto) 0.4 10^3/uL (1.2-3.4) L 11/21/23 05:16
Absolute Monos (auto) 0.5 10^3/uL (0.1-0.6) 11/21/23 05:16
Absolute Basos (auto) 0.0 10^3/uL (0-0.2) 11/21/23 05:16
Immature Gran % 1.3 % (0-0.5) H 11/21/23 05:16
Neutrophils % 93.4 % (42.2-75.2) H 11/21/23 05:16
Lymphocytes % 2.4 % (20.5-51.1) L 11/21/23 05:16
Monocytes % 2.7 % (1.7-9.3) 11/21/23 05:16
Eosinophils % 0.1 % (0-6) 11/21/23 05:16
Basophils % 0.1 % (0-2) 11/21/23 05:16
Lactic Acid 1.1 mmol/L (0.7-2.0) 11/21/23 05:13
Ur Squamous Epith Cells 0-2 /LPF (Few) 11/20/23 03:56
Microbiology Results
Micro:
11/20/23 03:56 Urine Culture - Preliminary
Urine Gram negative bacilli
11/20/23 05:02 Blood Culture - Preliminary
Blood/Venous No Growth in 24 hours- Final report to follow
11/20/23 05:02 Blood Culture - Preliminary
Blood/Venous No Growth in 24 hours- Final report to follow
11/20/23 14:06 MRSA Screen - Pending
Nose
Assessment / Plan
# GNR UTI
# Sepsis with fever, leukocytosis, elev lactic acid, due to UTI
- Blood cx neg to date.
- Renal US pending.
- Can continue cefepime pending Ucx data.
- Trend temps and wbc.
[2023-11-21] MEDS: MAXIPIME 2000 MG IV ×2 (11:05→21:16)
[2023-11-21] MEDS: KLOR-CON 40 MEQ PO (11:06)
[2023-11-21 11:09] VITALS: BP 135/90
[2023-11-21 11:39] LABS: Glucose - Point of Care 162 mg/dl (70-99)
[2023-11-21] MEDS: NSS 1000 IV (12:03)
[2023-11-21 15:01] VITALS: BP 118/80; PULSE 94; O2SAT 96
--- NOTE | 2023-11-21 15:11 | CM ---
CM reviewed chart, placed two calls to [facility], left voicemails for patients nurse to obtain patients PLOF. Patient seen bedside, unable to complete assessment due to Dementia. CM placed call to patients son, Marcelo, to complete initial
assessment. Patient typically ambulates with a walker, has received PT through [facility] at [facility]. Patient has not been to SNF in past. [facility] TT to Resident for PT/OT orders. Son requesting call
from Doctor, TT to Resident with request. CM will continue to follow for all discharge planning needs.
Plan; awaiting PLOF from [facility], will need PT/OT evals to determine if patient can return to [facility] or need SNF.
[2023-11-21 15:27] VITALS: BP 127/88
[2023-11-21 16:11] LABS: Glucose - Point of Care 201 mg/dl (70-99)
[2023-11-21] MEDS: LOVENOX 40 MG SC (16:51)
[2023-11-21] MEDS: FLOMAX 0.4 MG PO (21:16)
[2023-11-21 21:39] LABS: Glucose - Point of Care 120 mg/dl (70-99)
[2023-11-21 23:21] VITALS: BP 147/84
[2023-11-22] VITALS (8 sets, daily range): BP systolic 120–154; BP diastolic 71–93
[2023-11-22] MEDS: D5/0.9% SODIUM CHLORIDE IV ×2 (02:39→07:24)
[2023-11-22] MEDS: NSS 1000 IV (04:05)
[2023-11-22] MEDS: LOW STRENGTH ASPIRIN 81 MG PO (07:17)
[2023-11-22] MEDS: DECADRON 1 MG PO (07:17)
[2023-11-22] MEDS: VITAMIN B1 200 MG PO (07:18)
[2023-11-22] MEDS: KEPPRA 500 MG IV ×2 (07:19→21:15)
[2023-11-22] MEDS: PROSCAR 5 MG PO (07:19)
[2023-11-22] MEDS: LIPITOR 40 MG PO (07:19)
[2023-11-22] MEDS: NSS IV (07:23)
[2023-11-22] MEDS: THERAGRAN 1 TABLET PO (07:24)
[2023-11-22 07:58] LABS: % Basophils 0.1 % (0-2); % Eosinophils 1.2 % (0-6); % Immature Granulocytes 0.7 % (0-0.5); % Lymphocytes 8.6 % (20.5-51.1); % Monocytes 6.6 % (1.7-9.3); % Neutrophils 82.8 % (42.2-75.2); Absolute Eosinophils 0.1 10^3/uL (0-0.7); Absolute Immature Granulocytes 0.1 10^3/uL (0-0.05); Absolute Monocytes 0.8 10^3/uL (0.1-0.6); Absolute Neutrophils 9.5 10^3/uL (1.4-6.5); Hematocrit 32.9 % (39.0-52.0); Hemoglobin 11.2 g/dL (13.0-18.0); Mean Corpuscular Hgb 31.3 pg (27.0-31.0); Mean Corpuscular Volume 91.9 fL (80.0-94.0); Mean Platelet Volume 9.9 fL (7.4-10.4); Nucleated Red Blood Cells % 0 % (-); Platelet Count 161 10^3/uL (130-400); Red Blood Cell Count 3.58 10^6/uL (4.70-6.10); Red Cell Dist. Width 14.6 % (11.5-14.5); White Blood Cell Count 11.5 10^3/uL (4.8-10.8)
[2023-11-22 08:18] LABS: Blood Urea Nitrogen 19 mg/dl (9-20); Calcium 8.2 mg/dl (8.4-10.2); Carbon Dioxide 21 mmol/L (22-30); Chloride 110 mmol/L (98-107); Estimated Creatinine Clearance 89 ml/min; Glucose 74 mg/dl (70-99); Potassium 3.4 mmol/L (3.5-5.1); Sodium 143 mmol/L (135-145); eGFR > 60.00
[2023-11-22 08:19] LABS: Glucose - Point of Care 90 mg/dl (70-99)
--- NOTE | 2023-11-22 08:59 | W.PN.HOSP.TC ---
Addendum entered and electronically signed by Vlad Estrada MD 11/22/23 12:24:
I saw and examined the patient.
The MOBILITY DEVELOPER or PA's note was reviewed and I agree with the note.
Comment: No new complaints
No acute distress, awake and alert
Regular rate and rhythm, normal S1-S2
Clear to auscultation bilaterally
Cranial nerves II to XII are intact
UCx with Klebsiella pneumoniae
Acute metabolic encephalopathy due to sepsis due to UTI:
-BCxs NGTD
-Continue Rocephin as per ID
-leukocytosis has nearly resolved
Original Note:
Today's Communication/Plan
-
UC positive for Klebsiella (culture sensitivity available)
IV ceftriaxone. Stop cefepime
Can possibly be dc today with PO abx
No fevers in the past 24 hours
WBC trending down
Assessment / Plan
Assessment / Plan
Impression
Acute toxic metabolic encephalopathy
Complicated UTI
Acute urinary retention
Orthostatic hypotension
Advanced dementia
Weakness
s/p left temporal glioblastoma
History of seizures
BPH
HLD
Assessment/Plan
Acute Toxic metabolic encephalopathy
Patient is not coherent
Continue IV fluids
Possibly due to UTI, unclear source
No electrolyte abnormalities on BMP
Continue IV Keppra BID
Stop IV hydrocortisone. Continue PO dexamethasone
Continue PO thiamine
Speech swallow study - regular diet
Aspiration precautions
Complicated UTI
Patient has no urine output
Bladder scan and straight cath
UC positive for Klebsiella pneumonia
Will restart IV ceftriaxone. Can possibly be dc today with PO abx.
WBC trending down- 11.5<18.1
No fevers in the past 24 hours
Continue to monitor temp curve and WBC count
Acute urinary retention
Patient is on dutasteride and tamsulosin
Renal and bladder US - unremarkable, no hydronephrosis
Bladder scan volume - 78 ml
Cespedes is out
Orthostatic hypotension
continue Midodrine
Weakness
PT/OT
No aphasia, motor weakness, slurred speech, facial droop. Sensation is intact
Brain tumor s/p left frontotemporal craniotomy
Continue IV hydrocortisone
BPH
Continue dutasteride and tamsulosin
Monitor BP
History of seizure
continue Keppra
HLD
continue atorvastatin
DVT Prophylaxis: Lovenox sq
Code status: Full Code
Anticipated Discharge: Within 24 hours
Subjective/Interval History
-
Date of Service: November 22, 2023
Patient denies abdpain, no fever in the past 24 hours
Objective Data
-
Labs:
Laboratory Results
11/22/23
06:06
WBC 11.5 H
Hgb 11.2 L
Hct 32.9 L
Plt Count 161
Sodium 143
Potassium 3.4 L
Chloride 110 H
Carbon Dioxide 21 L
BUN 19
Creatinine 0.8
Glucose 74
Calcium 8.2 L
Vital Signs:
Vital Signs
Temp Pulse Resp BP Pulse Ox
97.5 F 81 18 154/93 97
11/22/23 07:38 11/22/23 07:38 11/22/23 07:38 11/22/23 07:38 11/22/23 07:38
I&O
11/21/23 11/22/23 11/23/23
06:59 06:59 06:59
Intake Total 1465 / 1465 1500 / 1500
Balance 1465 / 1465 1500 / 1500
Review of Systems
-
Unable to obtain full review of systems at this time due to: Dementia
Physical Exam
-
General: No Apparent Distress and Comfortable
HEENT: Normocephalic and Atraumatic
Respiratory: Clear to Auscultation
Cardiac: Regular Rhythm and S1/S2
GI: Soft, Nontender and Nondistended
Genito-urinary: Negative Cespedes
Musculoskeletal: Edema, Left Lower Extrem (1+ pitting)
Neuro: Other (no oriented to time,place)
Psych: Calm
Data Reviewed
-
Labs: Labs Reviewed by me and Discussed with Physician
[2023-11-22] MEDS: ROCEPHIN 1000 MG IV (09:23)
[2023-11-22] MEDS: STERILE WATER FOR INJECTION 10 ML IV (09:23)
--- NOTE | 2023-11-22 10:23 | W.PN.ID1 ---
Date of Service
Date of Service: November 22, 2023
Today's Communication
See below.
Assessment / Plan
# Klebsiella UTI
# Sepsis, fever, leukocytosis - resolving
- Blood cx neg to date.
- Renal US: no hydro
- Narrow cefepime to ceftriaxone (d4 abx).
At time of discharge, transition to cefuroxime 500mg po bid through 12/02/23.
- Trend wbc.
#Additional Past Medical History:
Dementia
hx of left temporal glioblastoma
Seizure disorder
BPH
Dyslipidemia
Orthostatic hypotension
Chief Complaint
-: UTI
Subjective / Review of Systems
Feels well today.
Vital Signs / Physical Exam
Vital Signs
Vital Signs
Temp Pulse Resp BP Pulse Ox
97.5 F 81 18 154/93 97
11/22/23 07:38 11/22/23 07:38 11/22/23 07:38 11/22/23 07:38 11/22/23 07:38
Physical Exam
Constitutional: No Acute Distress and Comfortable
Gastrointestinal: Non Tender and Non Distended
Genito-Urinary: Negative CVA Tenderness
Neurological: Awake and Alert
Objective Data
Lab Data
Lab Results
11/22/23 06:06
11/22/23 06:06
Estimated Creat Clear 89 ml/min 11/22/23 06:06
Lactic Acid 1.1 mmol/L (0.7-2.0) 11/21/23 05:13
Total Bilirubin 2.2 mg/dl (0.2-1.3) H 11/20/23 03:56
AST 73 U/L (17-59) H 11/20/23 03:56
ALT 35 U/L (0-50) 11/20/23 03:56
Alkaline Phosphatase 69 U/L (38-126) 11/20/23 03:56
Most recent labs reviewed.
Micro Results:
11/20/23 03:56 Urine Culture - Final
Urine Klebsiella pneumoniae
11/20/23 05:02 Blood Culture - Preliminary
Blood/Venous No Growth in 48 hours- Final report to follow
11/20/23 05:02 Blood Culture - Preliminary
Blood/Venous No Growth in 48 hours- Final report to follow
11/20/23 14:06 MRSA Screen - Final
Nose No Methicillin Resistant Staphylococcus aureus isolated.
Care Review
Plan reviewed with: Physician (Dr. Bravo)
[2023-11-22] MEDS: KCL 270 MEQ IV (11:45)
--- NOTE | 2023-11-22 14:19 | CM ---
CM placed two calls to [facility] to speak to patients nurse regarding patients PLOF and accepting patient back. CM left message for nursing home assistant, requested return call. CM will continue to follow for all discharge planning needs.
Plan; return to [facility] if at baseline, may need SNF, awaiting [facility] return call.
[2023-11-22 15:54] LABS: Glucose - Point of Care 136 mg/dl (70-99)
[2023-11-22] MEDS: LOVENOX 40 MG SC (16:01)
[2023-11-22 21:07] LABS: Glucose - Point of Care 173 mg/dl (70-99)
[2023-11-22] MEDS: FLOMAX 0.4 MG PO (21:15)
[2023-11-23] VITALS (7 sets, daily range): BP systolic 136–165; BP diastolic 67–95
[2023-11-23] MEDS: TORADOL 10 MG IV (03:00)
[2023-11-23] MEDS: ZOFRAN 4 MG IV ×2 (06:42→17:05)
[2023-11-23 07:35] LABS: Glucose - Point of Care 109 mg/dl (70-99)
--- NOTE | 2023-11-23 07:47 | W.PN.HOSP.TC ---
Addendum entered and electronically signed by Vlad Estrada MD 11/23/23 10:01:
I saw and evaluated the patient. I reviewed the resident�s note and agree with findings and plan as documented in the resident�s note.
No new complaints.
remains No acute distress, awake and alert
remains Regular rate and rhythm, normal S1-S2
continues to remain clear to auscultation bilaterally
Cranial nerves II to XII are intact
UCx with Klebsiella pneumoniae
Acute metabolic encephalopathy due to sepsis due to UTI:
-BCxs NGTD
-has been on Rocephin, transition to Ceftin on d/c
-leukocytosis has resolved
Total time spent on d/c = 31 min. This included today's physical exam, progress note, review of laboratory and diagnostic data, preparation of discharge documents and prescriptions, and discussions about the pt's hospital course and discharge plan
with the patient and other biomedical analytical scientist involved in the patient's care.
Original Note:
Today's Communication/Plan
-
Stable for discharge today.
Transition to PO cefuroxime 500 BID until 12/01 on discharge
Assessment / Plan
Assessment / Plan
Impression
Acute toxic metabolic encephalopathy
Complicated UTI
Acute urinary retention
Orthostatic hypotension
Advanced dementia
Weakness
s/p left temporal glioblastoma
History of seizures
BPH
HLD
Assessment/Plan
Acute Toxic metabolic encephalopathy
Patient at baseline now. More calm.
DC IV fluids
Possibly due to UTI, unclear source
No electrolyte abnormalities on BMP
Continue IV Keppra BID
Continue PO dexamethasone
Continue PO thiamine
Speech swallow study - regular diet
Aspiration precautions
Complicated UTI
Patient has no urine output
Bladder scan and straight cath
UC positive for Klebsiella pneumonia
IV ceftriaxone - day 5
Discharge plan today to SNF. Await for SNF approval
Transitioning to Po cefuroxime 500mg BID through 12/02/23 per ID
WBC trending down- 11.5<18.1
No fevers in the past 24 hours
Acute urinary retention
Patient is on dutasteride and tamsulosin
Renal and bladder US - unremarkable, no hydronephrosis
Bladder scan volume - 78 ml
Cespedes is out
Orthostatic hypotension
continue Midodrine
Weakness
PT/OT
No aphasia, motor weakness, slurred speech, facial droop. Sensation is intact
Brain tumor s/p left frontotemporal craniotomy
Continue PO dexamethasone
BPH
Continue dutasteride and tamsulosin
Monitor BP
History of seizure
continue Keppra
HLD
continue atorvastatin
DVT Prophylaxis: Lovenox sq
Code status: Full Code
Anticipated Discharge: Today
Subjective/Interval History
-
Date of Service: November 23, 2023
Patient denies any pain. No fevers in the past 24 hours.
Objective Data
-
Vital Signs:
Vital Signs
Temp Pulse Resp BP Pulse Ox
99.3 F 66 20 157/91 93
11/23/23 07:20 11/23/23 07:20 11/23/23 07:20 11/23/23 07:20 11/23/23 07:20
I&O
11/22/23 11/23/23 11/24/23
06:59 06:59 06:59
Intake Total 1500 / 1500 960 / 960
Balance 1500 / 1500 960 / 960
Review of Systems
-
All other systems: Reviewed and negative
Physical Exam
-
General: Comfortable
HEENT: Normocephalic and Atraumatic
Respiratory: Clear to Auscultation
Cardiac: Regular Rhythm and S1/S2
GI: Soft, Nontender and Nondistended
Neuro: Awake, Alert and Oriented
Psych: Calm
Data Reviewed
-
Labs: Labs Reviewed by me and Discussed with Physician
[2023-11-23 08:10] LABS: % Basophils 0.3 % (0-2); % Immature Granulocytes 0.5 % (0-0.5); % Lymphocytes 9.4 % (20.5-51.1); % Monocytes 7.8 % (1.7-9.3); Absolute Eosinophils 0.2 10^3/uL (0-0.7); Absolute Lymphocytes 0.7 10^3/uL (1.2-3.4); Absolute Monocytes 0.6 10^3/uL (0.1-0.6); Hematocrit 36.3 % (39.0-52.0); Hemoglobin 12.4 g/dL (13.0-18.0); Mean Corp Hgb Conc. 34.2 g/dL (33.0-37.0); Mean Corpuscular Hgb 30.9 pg (27.0-31.0); Mean Corpuscular Volume 90.5 fL (80.0-94.0); Nucleated Red Blood Cells % 0 % (-); Platelet Count 160 10^3/uL (130-400); Red Blood Cell Count 4.01 10^6/uL (4.70-6.10); Red Cell Dist. Width 14.6 % (11.5-14.5); White Blood Cell Count 7.5 10^3/uL (4.8-10.8)
[2023-11-23] MEDS: LIPITOR 40 MG PO (08:36)
[2023-11-23] MEDS: THERAGRAN 1 TABLET PO (08:36)
[2023-11-23] MEDS: LOW STRENGTH ASPIRIN 81 MG PO (08:36)
[2023-11-23] MEDS: DECADRON 1 MG PO (08:37)
[2023-11-23] MEDS: PROSCAR 5 MG PO (08:37)
[2023-11-23] MEDS: VITAMIN B1 200 MG PO (08:38)
[2023-11-23] MEDS: KEPPRA 500 MG IV ×2 (08:39→21:11)
--- NOTE | 2023-11-23 08:43 | CM ---
Addendum entered by Izzy Peña 11/23/23 12:54:
CM spoke with nurse and Resident, discharge held for today. Patients daughter in law bedside. CM placed call to nurse at the [facility] with update.
Addendum entered by Izzy Peña 11/23/23 09:27:
[facility] reviewed [facility] notes, able to accept patient back. CM spoke with patients Marcelo avelar, Marcelo's will provide transportation for patient to [facility]. IMM reviewed with Marcelo over the phone. Patient
will need script for PT/OT upon discharge.
[facility]
Report: [phone]

Original Note:
CM placed call to the [facility] to speak to patients nurse, was transferred to voicemail, left message requesting return call as CM has been calling several times with no return call and patient is clear for discharge. CM placed another call to
[facility], spoke with Jessie in entry level receptionist, asked for Director, Elvia, to please call CM back. Jessie reports Elvia is not in yet but took CM name and number. CM placed call to patients Marcelo avelar, discussed CM has been unable to speak with patients nurse,
patient is clear for discharge, CM needs to ensure facility can accept patient back with therapy and review PLOF. Son Marcelo reports patient appears to be at baseline, CM discussed PT notes with son. Marcelo will call facility as well. TT to Resident with
update. CM will continue to follow for all discharge planning needs.
Plan; return to [facility] with in house therapy, awaiting return call from nurse/Director to ensure ability to accept patient back at current level.
--- NOTE | 2023-11-23 10:46 | W.PN.ID1 ---
Date of Service
Date of Service: November 23, 2023
Today's Communication
Transition ceftriaxone to cefuroxime 500mg po bid through 12/02/23.
ID will sign off.
Assessment / Plan
# Klebsiella UTI
# s/p Sepsis, fever, leukocytosis - resolved
- Blood cx neg to date.
- Renal US: no hydro
- Transition ceftriaxone to cefuroxime 500mg po bid through 12/02/23.
-ID signing off.
#Additional Past Medical History:
Dementia
hx of left temporal glioblastoma
Seizure disorder
BPH
Dyslipidemia
Orthostatic hypotension
Chief Complaint
-: UTI
Subjective / Review of Systems
Feels OK.
Vital Signs / Physical Exam
Vital Signs
Vital Signs
Temp Pulse Resp BP Pulse Ox
99.3 F 66 20 157/91 93
11/23/23 07:20 11/23/23 07:20 11/23/23 07:20 11/23/23 07:20 11/23/23 07:20
Physical Exam
Constitutional: No Acute Distress
Gastrointestinal: Soft, Non Tender and Non Distended
Genito-Urinary: Negative CVA Tenderness
Neurological: Awake and Alert
Objective Data
Lab Data
Lab Results
11/23/23 08:02
11/22/23 06:06
Estimated Creat Clear 89 ml/min 11/22/23 06:06
Lactic Acid 1.1 mmol/L (0.7-2.0) 11/21/23 05:13
Total Bilirubin 2.2 mg/dl (0.2-1.3) H 11/20/23 03:56
AST 73 U/L (17-59) H 11/20/23 03:56
ALT 35 U/L (0-50) 11/20/23 03:56
Alkaline Phosphatase 69 U/L (38-126) 11/20/23 03:56
Most recent labs reviewed.
Micro Results:
11/20/23 05:02 Blood Culture - Preliminary
Blood/Venous No Growth in 72 hours- Final report to follow
11/20/23 05:02 Blood Culture - Preliminary
Blood/Venous No Growth in 72 hours- Final report to follow
11/20/23 03:56 Urine Culture - Final
Urine Klebsiella pneumoniae
11/20/23 14:06 MRSA Screen - Final
Nose No Methicillin Resistant Staphylococcus aureus isolated.
[2023-11-23] MEDS: ROCEPHIN IV (11:02)
[2023-11-23] MEDS: STERILE WATER FOR INJECTION IV (11:02)
[2023-11-23] MEDS: CEFTIN 500 MG PO ×2 (11:12→19:48)
[2023-11-23 11:55] LABS: Glucose - Point of Care 118 mg/dl (70-99)
[2023-11-23] MEDS: VISBIOME 1 CAP PO (12:24)
[2023-11-23] MEDS: COMPAZINE 5 MG IV ×2 (12:25→19:55)
--- NOTE | 2023-11-23 12:30 | PTCARENOTE ---
Patient with N/V and poor appetite. Daughter in law at bedside, feels patient is not his typical self, more drowsy today. Dr. Bravo notified, on unit to see patient. Discharge cancelled.
--- NOTE | 2023-11-23 12:43 | W.PN.UPDATE ---
Update Note
Progress Note Update
Hold discharge for today as patient has vomited four times since morning.He has been given Zofran and Compazine. He looks drowsy, tired. No appetite. Vitals are stable. Will give IV fluids, IV Compazine q6PRN an probiotics. Daughter in law at
bedside. Dr Estrada and CM aware.
[2023-11-23 17:00] LABS: Glucose - Point of Care 144 mg/dl (70-99)
[2023-11-23] MEDS: LOVENOX 40 MG SC (17:04)
[2023-11-23] MEDS: NSS 1000 IV (19:48)
[2023-11-23 21:03] LABS: Glucose - Point of Care 120 mg/dl (70-99)
[2023-11-23] MEDS: FLOMAX 0.4 MG PO (21:11)
[2023-11-24 03:18] VITALS: BP 150/86
[2023-11-24 05:29] VITALS: BMI 29.5
[2023-11-24] MEDS: NSS 1000 IV ×2 (06:17→14:57)
--- NOTE | 2023-11-24 06:22 | W.PN.UPDATE ---
Update Note
Progress Note Update
RN addressed to ROOM SERVICE FOOD SERVICE ATTENDANT. Patient hasn't feeling good, vomited 4 times during day shift, will order maintenance fluids, labs in AM. No new complaints. stable VS
[2023-11-24] MEDS: VITAMIN B1 200 MG PO (07:35)
[2023-11-24] MEDS: LIPITOR 40 MG PO (07:35)
[2023-11-24] MEDS: PROSCAR 5 MG PO (07:35)
[2023-11-24] MEDS: DECADRON 1 MG PO (07:35)
[2023-11-24] MEDS: KEPPRA 500 MG IV ×2 (07:35→20:17)
[2023-11-24] MEDS: LOW STRENGTH ASPIRIN 81 MG PO (07:35)
[2023-11-24] MEDS: CEFTIN 500 MG PO (07:35)
[2023-11-24] MEDS: THERAGRAN 1 TABLET PO (07:35)
[2023-11-24 07:55] VITALS: BP 162/84
[2023-11-24 08:13] LABS: Glucose - Point of Care 88 mg/dl (70-99)
--- NOTE | 2023-11-24 08:22 | W.PN.HOSP.TC ---
Addendum entered and electronically signed by Vlad Estrada MD 11/24/23 09:34:
I saw and evaluated the patient. I reviewed the resident�s note and agree with findings and plan as documented in the resident�s note.
Patient states he feels overall unwell but cannot offer specific complaints. Multiple episodes of vomiting yesterday.
Continues to remain no acute distress, awake and alert
Continues to remain regular rate and rhythm, normal S1-S2
CTAB
Cranial nerves II to XII are intact
UCx with Klebsiella pneumoniae
Acute metabolic encephalopathy due to sepsis due to UTI:
-BCxs NGTD
-has been on Rocephin, then transitioned to Ceftin. Change back to Rocephin with vomiting yesterday.
-leukocytosis has resolved
Vomiting:
-With fever yesterday afternoon check obstruction series to assess for pulmonary infiltrate and SBO/ileus
No discharge today.
Original Note:
Today's Communication/Plan
-
Hold discharge for today
Obstruction series ordered
Hold PO antibiotics.
Switch to IV ceftriaxone.
Assessment / Plan
Assessment / Plan
Impression
Acute toxic metabolic encephalopathy
Complicated UTI
Nausea and Vomiting
Acute urinary retention
Orthostatic hypotension
Advanced dementia
Weakness
s/p left temporal glioblastoma
History of seizures
BPH
HLD
Assessment/Plan
Acute Toxic metabolic encephalopathy
Patient at baseline now. More calm.
DC IV fluids
Possibly due to UTI, unclear source
No electrolyte abnormalities on BMP
Continue IV Keppra BID
Continue PO dexamethasone
Continue PO thiamine
Speech swallow study - regular diet
Aspiration precautions
Complicated UTI
Patient has no urine output
Bladder scan and straight cath
UC positive for Klebsiella pneumonia
HOLD discharge
HOLD PO abx. Switch to IV ceftriaxone.
WBC trending down- 11.5<18.1
He was febrile in the past 24 hours
Monitor temp and WBC count
Nausea and Vomiting
Patient has vomited 4 times
Decreased breath sounds on right
Likely patient might have aspirated with vomiting.
Will order obstruction series
Acute urinary retention
Patient is on dutasteride and tamsulosin
Renal and bladder US - unremarkable, no hydronephrosis
Bladder scan volume - 78 ml
Cespedes is out
Orthostatic hypotension
continue Midodrine
Weakness
PT/OT
No aphasia, motor weakness, slurred speech, facial droop. Sensation is intact
Brain tumor s/p left frontotemporal craniotomy
Continue PO dexamethasone
BPH
Continue dutasteride and tamsulosin
Monitor BP
History of seizure
continue Keppra
HLD
continue atorvastatin
DVT Prophylaxis: Lovenox sq
Code status: Full Code
Anticipated Discharge: 24 - 48 hours
Subjective/Interval History
-
Date of Service: November 24, 2023
Patient states that he feels terrible. He has vomited 4 times. He was febrile in the past 24 hours.
Objective Data
-
Labs:
Laboratory Results
11/24/23 11/24/23
06:11 08:09
WBC Pending
Hgb Pending
Hct Pending
Plt Count Pending
Sodium Pending
Potassium Pending
Chloride Pending
Carbon Dioxide Pending
BUN Pending
Creatinine Pending
Glucose Pending
Calcium Pending
Vital Signs:
Vital Signs
Temp Pulse Resp BP Pulse Ox
98.4 F 70 18 162/84 95
11/24/23 07:55 11/24/23 07:55 11/24/23 07:55 11/24/23 07:55 11/24/23 07:55
I&O
11/23/23 11/24/23 11/25/23
06:59 06:59 06:59
Intake Total 960 / 960 360 / 360
Balance 960 / 960 360 / 360
Review of Systems
-
History Source: Patient
All other systems: Reviewed and negative (except mentioned )
Abdomen/GI: Reports Abdominal Pain (mild), Nausea and Vomiting
Physical Exam
-
General: Conversant and Obese
HEENT: Normocephalic and Atraumatic
Respiratory: Decreased Breath Sounds (right middle )
Cardiac: Regular Rhythm and S1/S2
GI: Soft, Nontender, Nondistended and Normal Bowel Sounds
Musculoskeletal: No Edema
Neuro: AO x 3
Psych: Calm
Data Reviewed
-
Labs: Labs Reviewed by me and Discussed with Physician
[2023-11-24 08:27] LABS: Blood Urea Nitrogen 18 mg/dl (9-20); Calcium 7.9 mg/dl (8.4-10.2); Carbon Dioxide 25 mmol/L (22-30); Chloride 105 mmol/L (98-107); Estimated Creatinine Clearance 119 ml/min; Glucose 84 mg/dl (70-99); Potassium 3.7 mmol/L (3.5-5.1); Sodium 139 mmol/L (135-145); eGFR > 60.00
[2023-11-24 09:02] LABS: % Basophils 0.2 % (0-2); % Eosinophils 1.4 % (0-6); % Immature Granulocytes 0.7 % (0-0.5); % Monocytes 9.4 % (1.7-9.3); % Neutrophils 79.3 % (42.2-75.2); Absolute Eosinophils 0.1 10^3/uL (0-0.7); Absolute Immature Granulocytes 0.1 10^3/uL (0-0.05); Absolute Lymphocytes 0.8 10^3/uL (1.2-3.4); Absolute Monocytes 0.8 10^3/uL (0.1-0.6); Absolute Neutrophils 6.8 10^3/uL (1.4-6.5); Hematocrit 32.3 % (39.0-52.0); Hemoglobin 11.3 g/dL (13.0-18.0); Mean Corpuscular Volume 88.5 fL (80.0-94.0); Mean Platelet Volume 8.9 fL (7.4-10.4); Nucleated Red Blood Cells % 0 % (-); Platelet Count 151 10^3/uL (130-400); Red Blood Cell Count 3.65 10^6/uL (4.70-6.10); Red Cell Dist. Width 14.4 % (11.5-14.5); White Blood Cell Count 8.6 10^3/uL (4.8-10.8)
[2023-11-24] MEDS: ROCEPHIN 1000 MG IV (11:08)
[2023-11-24] MEDS: STERILE WATER FOR INJECTION 10 ML IV (11:08)
[2023-11-24 11:36] LABS: Glucose - Point of Care 161 mg/dl (70-99)
[2023-11-24 12:02] VITALS: BP 117/65; BP 138/80
[2023-11-24 16:01] VITALS: BP 127/74
--- NOTE | 2023-11-24 16:36 | VATNOTE ---
unsuccessful IV restart x2; another VAT will attempt. Pt pulled out IV
[2023-11-24] MEDS: VISBIOME 1 CAP PO (16:50)
[2023-11-24] MEDS: LOVENOX 40 MG SC (16:50)
[2023-11-24 16:59] LABS: Glucose - Point of Care 117 mg/dl (70-99)
[2023-11-24 21:27] LABS: Glucose - Point of Care 95 mg/dl (70-99)
[2023-11-24] MEDS: FLOMAX 0.4 MG PO (21:55)
[2023-11-24 23:37] VITALS: BP 148/83
[2023-11-25] MEDS: NSS 1000 IV (01:48)
[2023-11-25 07:02] LABS: Glucose - Point of Care 78 mg/dl (70-99)
[2023-11-25 07:16] VITALS: BP 148/77
--- NOTE | 2023-11-25 07:28 | CM ---
11/23/22 TT from attending tht patient kailynot feeling well to return to [facility] today.he was febrile and obstuction series ordered,po abx changed to iv abx.called the [facility] and spoke with nurse maravilla.called son antoinette to let him know patient will not
be returning to [facility].Plan return to [facility] when stable for dc.
[2023-11-25] MEDS: VITAMIN B1 200 MG PO (08:02)
[2023-11-25] MEDS: THERAGRAN 1 TABLET PO (08:02)
[2023-11-25] MEDS: DECADRON 1 MG PO (08:02)
[2023-11-25] MEDS: PROSCAR 5 MG PO (08:02)
[2023-11-25] MEDS: LOW STRENGTH ASPIRIN 81 MG PO (08:03)
[2023-11-25] MEDS: LIPITOR 40 MG PO (08:03)
[2023-11-25] MEDS: KEPPRA 500 MG IV (08:03)
[2023-11-25] MEDS: VISBIOME 1 CAP PO (08:06)
[2023-11-25 08:16] VITALS: BP 148/77
--- NOTE | 2023-11-25 08:16 | W.PN.HOSP.TC ---
Addendum entered and electronically signed by Elma Reaves MD 11/25/23 14:36:
73-year-old admitted because of UTI
I personally performed a history and physical exam of the patient and discussed management with the resident. I reviewed the resident's note and agree with the documented findings and plan of care HPI/CC , see changes in my documentation
Renal ultrasound-no hydronephrosis. No nephrolithiasis. Enlarged prostate
Seen earlier. Late documentation.
CVS: S1-S2 normal
Chest: CTA B/L
Abdomen: Soft, NT / Bowel sounds present
Extremities: No edema
# TME with underlying dementia-likely secondary to UTI
# Klebsiella UTI-continue cefuroxime 500 mg p.o. twice daily through 12/02/2023
# Vomiting-obstruction series unremarkable. Patient is on chronic steroids. Added H2 blockers
# Elevated LFT-repeat as OP
# Enlarged prostate-continue Flomax and dutasteride
# Orthostatic hypotension-midodrine as needed
# Hyperlipidemia will continue atorvastatin
# Chronic ambulatory dysfunction
# History of surgery for -left temporal glioblastoma
# Seizures-continue Keppra
# History of stroke-aspirin and statin
# Dementia
# DVT prophylaxis-Lovenox
# Full code
OK for discharge
Time for discharge more than 30 min
Part of this note was created using voice recognition system. Occasional wrong word or��sound alike� substitutions may have inadvertently occurred due to the inherent limitations of voice recognition software. If noted kindly bring it to my
attention for correction.
Original Note:
Today's Communication/Plan
-
Obstruction series unremarkable.
No fevers, vomiting in the past 24 hours
Patient is stable for discharge to SNF today
Dispo meds
Transition to cefuroxime 500 BID through 12/01
Famotidine 20 mg for prevention of gastric/duodenal ulcer due to jail steroid use
CM aware. Patient's son updated.
Assessment / Plan
Assessment / Plan
Impression
Acute toxic metabolic encephalopathy
Complicated UTI
Nausea and Vomiting
Acute urinary retention
Orthostatic hypotension
Advanced dementia
Weakness
s/p left temporal glioblastoma
History of seizures
BPH
HLD
Assessment/Plan
Acute Toxic metabolic encephalopathy
Patient at baseline now. More calm.
IV fluids
Possibly due to UTI, unclear source
No electrolyte abnormalities on BMP
Continue IV Keppra BID
Continue PO dexamethasone
Continue PO thiamine
Speech swallow study - regular diet
Aspiration precautions
Complicated UTI
Patient has no urine output
Bladder scan and straight cath
UC positive for Klebsiella pneumonia
Transition from ceftriaxone to cefuroxime 500 BID through 12/01 to complete 14 days course
He is stable to be discharged today to SNF
No fevers in the past 24 hours.
No leukocytosis
Nausea and Vomiting
Has improved
Patient looks stable
His last BM was yesterday.
Obstruction series showed 1. Mild left basilar probable atelectasis. 2. Non-specific bowel gas pattern without signs of obstruction.
Ok to be discharged today to SNF
Acute urinary retention
Patient is on dutasteride and tamsulosin
Renal and bladder US - unremarkable, no hydronephrosis
Bladder scan volume - 78 ml
Cespedes is out
Orthostatic hypotension
continue Midodrine
Weakness
PT/OT
No aphasia, motor weakness, slurred speech, facial droop. Sensation is intact
Brain tumor s/p left frontotemporal craniotomy
Continue PO dexamethasone
BPH
Continue dutasteride and tamsulosin
Monitor BP
History of seizure
continue Keppra
HLD
continue atorvastatin
DVT Prophylaxis: Lovenox sq
Code status: Full Code
Anticipated Discharge: Today
Subjective/Interval History
-
Date of Service: November 25, 2023
Patient denies abdominal pain, N , V. No fever and vomiting in the past 24 hours.
Objective Data
-
Labs:
Laboratory Results
11/25/23
08:04
WBC Pending
Hgb Pending
Hct Pending
Plt Count Pending
Sodium Pending
Potassium Pending
Chloride Pending
Carbon Dioxide Pending
BUN Pending
Creatinine Pending
Glucose Pending
Calcium Pending
Vital Signs:
Vital Signs
Temp Pulse Resp BP Pulse Ox
98.2 F 63 16 148/83 96
11/24/23 23:37 11/24/23 23:37 11/24/23 23:37 11/24/23 23:37 11/24/23 23:37
I&O
11/24/23 11/25/23 11/26/23
06:59 06:59 06:59
Intake Total 360 / 360 1200 / 1200
Balance 360 / 360 1200 / 1200
Review of Systems
-
History Source: Patient
All other systems: Reviewed and negative
Physical Exam
-
General: Comfortable and Obese
HEENT: Normocephalic and Atraumatic
Respiratory: Clear to Auscultation
Cardiac: Regular Rhythm and S1/S2
GI: Soft, Nontender and Nondistended
Musculoskeletal: Edema, Right Lower Extrem (1+ pitting) and Edema, Left Lower Extrem (1+ pitting)
Neuro: Awake and Alert
Psych: Calm
Data Reviewed
-
Labs: Labs Reviewed by me and Discussed with Physician
[2023-11-25 09:20] LABS: % Basophils 0.4 % (0-2); % Eosinophils 2.9 % (0-6); % Immature Granulocytes 1.8 % (0-0.5); % Lymphocytes 12.6 % (20.5-51.1); % Monocytes 10.4 % (1.7-9.3); % Neutrophils 71.9 % (42.2-75.2); Absolute Eosinophils 0.2 10^3/uL (0-0.7); Absolute Immature Granulocytes 0.2 10^3/uL (0-0.05); Absolute Lymphocytes 1.1 10^3/uL (1.2-3.4); Absolute Monocytes 0.9 10^3/uL (0.1-0.6); Hematocrit 35.2 % (39.0-52.0); Hemoglobin 12.4 g/dL (13.0-18.0); Mean Corp Hgb Conc. 35.2 g/dL (33.0-37.0); Mean Corpuscular Hgb 32.2 pg (27.0-31.0); Mean Corpuscular Volume 91.4 fL (80.0-94.0); Nucleated Red Blood Cells % 0 % (-); Platelet Count 162 10^3/uL (130-400); Red Blood Cell Count 3.85 10^6/uL (4.70-6.10); Red Cell Dist. Width 14.2 % (11.5-14.5); White Blood Cell Count 8.3 10^3/uL (4.8-10.8)
[2023-11-25 09:31] LABS: Blood Urea Nitrogen 10 mg/dl (9-20); Calcium 8.1 mg/dl (8.4-10.2); Carbon Dioxide 23 mmol/L (22-30); Chloride 104 mmol/L (98-107); Estimated Creatinine Clearance 119 ml/min; Glucose 81 mg/dl (70-99); Potassium 3.3 mmol/L (3.5-5.1); Sodium 137 mmol/L (135-145); eGFR > 60.00
--- NOTE | 2023-11-25 09:36 | CM ---
Addendum entered by Izzy Peña 11/25/23 11:37:
CM spoke with Resident, patient clear for discharge today. Patients son updated, Marcelo, will provide transportation home around 2-3:00 p.m. IMM reviewed over phone, understands form, placed in chart. Son inquiring why potassium is low, will relay to
nurse. CM will update Romero on discharge.
Plan; return to [facility], son to transport, script in chart for PT
[facility]
Report: [phone]

Original Note:
CM reviewed with Resident, patient likely for discharge today. CM spoke with patients nurse from the [facility], [facility], discussed patient discharge plan. [facility] new pharmacy, [facility], changed in system. CM will await
for confirmation patient is clear for discharge today, will need script for PT/OT for [facility] at [facility].
Plan; return to [facility] with script for PT/OT
[facility]
Report: [phone]
[2023-11-25 09:41] LABS: ALT (SGPT) 68 U/L (0-50); AST (SGOT) 50 U/L (17-59); Alkaline Phosphatase 81 U/L (38-126); Direct Bilirubin 0.1 mg/dl (0.0-0.4); Total Bilirubin 0.9 mg/dl (0.2-1.3); Total Protein 5.2 g/dl (6.3-8.2)
[2023-11-25] MEDS: PEPCID 20 MG PO (10:53)
[2023-11-25] MEDS: STERILE WATER FOR INJECTION 10 ML IV (10:57)
[2023-11-25] MEDS: ROCEPHIN 1000 MG IV (10:57)
[2023-11-25] MEDS: KCL 270 MEQ IV (10:58)
[2023-11-25 11:42] LABS: Magnesium 1.9 mg/dl (1.6-2.3)
--- NOTE | 2023-11-25 12:12 | W.DCSUMMARY ---
Documented by User: Td Bravo MD, Resident 11/25/23 13:08
Discharge Summary
Discharge Data
Date of Admission: 11/20/23
Date of Discharge: 11/25/23
-
Pending Results: No
Hospital Course
Discharging Physician : Dr Td Bravo, Dr Elma Reaves
Disposition : Assisted living
Primary care physician : Melo Carlson
Principal Discharge diagnosis :
Acute toxic metabolic encephalopathy
Complicated UTI
Nausea Vomiting
Acute urinary retention
Orthostatic hypotension
Advanced dementia
Weakness
Chronic Discharge diagnosis :
s/p left temporal glioblastoma
History of seizures
BPH
Urinary incontinence
HLD
Hospital Course :
73-year-old was a past medical history of orthostatic hypotension, seizure disorder, hyperlipidemia, worsening dementia over the last several months who presents to the emergency department with lethargy and altered mental status. Patient arrived in
the emergency department somewhat somnolent and confused and unable to provide much history. Per the medical records from the halfway and the son the patient has been weak for about 2 days. He usually ambulates with an assisted device but was
not able to perform. On arrival in the emergency department he was febrile to 101, blood pressure was 125/70 pulse was 104 and oxygen saturation was 94% on room air. Had leukocytosis to 18,000 with hemoglobin of 14.6 chemistries are within normal
limits. Lactic acid of 3.0 he had urine that was straight cath obtained with visual pulse and a UA with 2+ leukocyte esterase and pyuria, bacteriuria with some blood. COVID test is negative. ID was consulted. Patient was started on IV fluids, IV
ceftriaxone and blood cultures and urine cultures were drawn. Patient has a history of acute urinary incontinence. He did not come in with a Cespedes's catheter. Blood cultures showed no growth and urine culture showed Klebsiella pneumonia . Patient
was switched to IV cefepime. Over the next 2 days of hospitalization. His mental status improved, leukocytes decreased to 11,000, lactic acid 1.0. He became afebrile within 24 hours after admission. With culture sensitivity the patient was
switched to ceftriaxone in regards to antibiotics stewardship, safety of the patient and cost effectiveness. Patient had frequent episodes x 4 of vomiting , nausea on the day of tentative discharge. We held discharge, IV fluids, IV Compazine and
Zofran and probiotics were given. Patient was also febrile despite normal leukocyte count and being on IV antibiotics. Patient had one loose watery stools possibly due to antibiotics. Obstruction series were unremarkable and ruled out bowel
obstruction and aspiration pneumonia.
On the day of discharge vitals look stable, no fevers, vomiting in the past 24 hours, leukocytosis resolved. K is 3.3 and repleted with IV 40 meq, normal magnesium level. Elevated ALT levels, 68, might need abdominal US outpatient. Transition
to PO Ceftin 500 mg BID through 12/01 and famotidine for prevention of gastric/duodenal ulcer due to snf steroid use.
Important imaging findings :
Obstruction series chest and abdomen
1. Mild left basilar probable atelectasis.
2. Non-specific bowel gas pattern without signs of obstruction.
Renal ultrasound
1. No hydronephrosis on either side. No posterior acoustic shadowing demonstrated to suggest nephrolithiasis.
2. No sonographic abnormalities demonstrated of the urinary bladder.
3. Enlarged prostate.
Head CT
No acute intracranial abnormality noted. Stable postsurgical change of the left temporal lobe. Stable calcifications posteriorly from 05/2023. Similar finding on prior MR exam 01/01/2022. This may also be postsurgical change. Residual disease cannot
be excluded. Stable midline shift to the right. Stable mild nonacute sinusitis.
Esophagus X ray
The study is limited by the patient's limited mobility. Contrast does flow through the esophagus into the stomach without obstruction. No stricture or mass is identified.
Procedure findings : none
Discharge Plan
-
Patient Disposition: Assisted Living
Discharge Diagnosis/Procedures: Acute toxic metabolic encephalopathy
Complicated UTI
Nausea and vomiting
Acute urinary retention
Orthostatic hypotension
Advanced dementia
Weakness
Condition: Good
Diet: Regular
Additional Diets: ok for regular solids/thin liquids, sit upright, slow rate, chewing his food completely.
Activity: As tolerated
Driving Restrictions: As prior to admission
Bathing Restrictions: None
Blood Work: CMP 3 days.
Others Tests: Abdominal US for elevated LFT
Other Services: PT and OT
Referrals:
Melo Carlson MD [Family Provider] - in less than 1 week
Additional Discharge Medication Instructions: Cefuroxime axetil- one tablet to be taken twice a day through 12/02/23 for complicated UTI
Famotidine - take one tablet twice a day - peptic ulcer prevention with long steroid use.
Please follow up with PCP in less than a week.
Advised for urology f/u. Family has outpatient urologist which they will follow.
Prescriptions:
New
cefuroxime axetil 500 mg tablet
500 mg PO BID 7 Days Qty: 14 0RF
Rx Instructions:
take one tablet two times a day through 12/01
famotidine 20 mg tablet
20 mg PO BID 10 Days Qty: 20 0RF
Continued
levetiracetam 500 mg Tablet
500 mg PO BID
tamsulosin 0.4 mg Capsule
0.4 mg PO HS
aspirin 81 mg Tablet,Chewable
81 mg PO DAILY Qty: 0 0RF
Patient Comments:
updated from halfway paperwork
atorvastatin 40 mg tablet
40 mg PO DAILY
Patient Comments:
from halfway paperwork
thiamine HCl (vitamin B1) 100 mg Tablet
200 mg PO DAILY Qty: 30 0RF
midodrine 2.5 mg tablet
2.5 mg PO BIDPRN PRN (Reason: Dizziness with hypotension) Qty: 10 0RF
Rx Instructions:
for standing systolic blood pressure lower than supine BP by more than 20 mmHg with dizziness.
dexamethasone 2 mg tablet
1 mg PO DAILY Qty: 0 0RF
multivitamin with folic acid [Tab-A-Tayo] 400 mcg Tablet
1 tab PO DAILY Qty: 30 0RF
dutasteride 0.5 mg Capsule
0.5 mg PO DAILY Qty: 90 0RF
Patient Comments:
12/31/21- spouse say he still takes this but hasnt not been filled in 2021, and patient does not use mail order
Discharge Orders:
Discharge Patient (As Directed); Ordered 11/25/23
Ordered By: Td Bravo
Discharge Date and Time
Print Language: MARSHALLESE

Documented by User: Elma Reaves MD 11/25/23 14:36
Discharge Summary
Discharge Data
Date of Admission: 11/20/23
Date of Discharge: 11/25/23
Discharge Plan
-
Patient Disposition: Assisted Living
Discharge Diagnosis/Procedures: Acute toxic metabolic encephalopathy
Complicated UTI
Nausea and vomiting
Acute urinary retention
Orthostatic hypotension
Advanced dementia
Weakness
Condition: Good
Diet: Regular
Additional Diets: ok for regular solids/thin liquids, sit upright, slow rate, chewing his food completely.
Activity: As tolerated
Driving Restrictions: As prior to admission
Bathing Restrictions: None
Blood Work: CMP 3 days.
Others Tests: Abdominal US for elevated LFT
Other Services: PT and OT
Referrals:
Melo Carlson MD [Family Provider] - in less than 1 week
Additional Discharge Medication Instructions: Cefuroxime axetil- one tablet to be taken twice a day through 12/02/23 for complicated UTI
Famotidine - take one tablet twice a day - peptic ulcer prevention with long steroid use.
Please follow up with PCP in less than a week.
Advised for urology f/u. Family has outpatient urologist which they will follow.
Prescriptions:
New
cefuroxime axetil 500 mg tablet
500 mg PO BID 7 Days Qty: 14 0RF
Rx Instructions:
take one tablet two times a day through 12/01
famotidine 20 mg tablet
20 mg PO BID 10 Days Qty: 20 0RF
Continued
levetiracetam 500 mg Tablet
500 mg PO BID
tamsulosin 0.4 mg Capsule
0.4 mg PO HS
aspirin 81 mg Tablet,Chewable
81 mg PO DAILY Qty: 0 0RF
Patient Comments:
updated from halfway paperwork
atorvastatin 40 mg tablet
40 mg PO DAILY
Patient Comments:
from halfway paperwork
thiamine HCl (vitamin B1) 100 mg Tablet
200 mg PO DAILY Qty: 30 0RF
midodrine 2.5 mg tablet
2.5 mg PO BIDPRN PRN (Reason: Dizziness with hypotension) Qty: 10 0RF
Rx Instructions:
for standing systolic blood pressure lower than supine BP by more than 20 mmHg with dizziness.
dexamethasone 2 mg tablet
1 mg PO DAILY Qty: 0 0RF
multivitamin with folic acid [Tab-A-Tayo] 400 mcg Tablet
1 tab PO DAILY Qty: 30 0RF
dutasteride 0.5 mg Capsule
0.5 mg PO DAILY Qty: 90 0RF
Patient Comments:
12/31/21- spouse say he still takes this but hasnt not been filled in 2021, and patient does not use mail order
Discharge Orders:
Discharge Patient (As Directed); Ordered 11/25/23
Ordered By: Td Bravo
Discharge Date and Time
Print Language: MARSHALLESE
== END 2023-11-25 15:51 | disposition home health service (06) | DRG 871 ==
LOC: 4 WEST ACU 05:55
PROVIDERS: Hospitalist; Nurse Practitioner Family; Nurse Practitioner Gerontology; Student in an Organized Health Care Education/Training Program; ADMITTING PHYSICIAN Internal Medicine; ATTENDING PHYSICIAN Hospitalist; EMERGENCY PHYSICIAN Student in an Organized Health Care Education/Training Program; FAMILY PHYSICIAN Internal Medicine; OTHER PHYSICIAN Internal Medicine Infectious Disease
DX: A41.9 Sepsis, unspecified organism (principal); G92.8 Other toxic encephalopathy; N39.0 Urinary tract infection, site not specified; J98.11 Atelectasis; Z11.52 Encounter for screening for COVID-19; E78.00 Pure hypercholesterolemia, unspecified
CPT/HCPCS: 70450; 74022; 74220; 76770; 80048; 80053; 81003; 81015; 82248; 82962; 83605; 83735; 85025; 87040; 87070; 87077; 87086; 87186; 87811; 92526; 92610; 96361; 96374; 96375; 97163; 97166; 97530; 99285

== ENCOUNTER 2024-02-21 16:23 | Inpatient (IN) | payer MEDICARE, OTHER, SELFPAY ==
[2024-02-21] VITALS (62 sets, daily range): BP systolic 61–164; BP diastolic 32–133; BMI 31.9
--- NOTE | 2024-02-21 14:37 | ED.GENMED ---
History of Present Illness
<Boris Ji PA-C - Last Filed: 02/21/24 16:37>
General
Chief Complaint: Change in Mental Status
Source: patient
Time Seen by Provider: 02/21/24 14:16
History of Present Illness
History of Present Illness:
73-year-old male presenting to the emergency department via EMS from memory care unit at [facility] for a reported change in mental status, cough, vomiting and reported fever as well as increased lethargy which staff reportedly noted today.
Patient unable to provide any history secondary to being nonverbal at baseline. Son who arrived to the emergency department after the patient states that patient was recently treated for urinary tract infection and completed antibiotics within the
last couple of days. Patient arrived to the emergency department incontinent as well as having bilious emesis on his shirt.
Past History
<Boris Ji PA-C - Last Filed: 02/21/24 16:37>
Past History
ED Past Medical History: Cancer (Glioblastoma), CVA and Hypercholesterolemia
ED Past Surgical History: Appendectomy and Brain (Resection of astrocytoma)
Social History
Tobacco: Non-smoker
Alcohol: None
Drug: None
Personal:
Living: prison
Review of Systems
<Boris Ji PA-C - Last Filed: 02/21/24 16:37>
Review of Systems
All Other Systems: ROS reviewed and negative except as documented in HPI and ROS
Phy Exam
<Boris Ji PA-C - Last Filed: 02/21/24 16:37>
Physical Exam
Physical Exam:
GENERAL: Somnolent, ill-appearing, appears older than stated age
HEAD: NCAT
EYE: clear conjunctiva
NECK: Supple
ENT: dry mucous membranes, bilious emesis stain periorally
CARDIAC: Tachycardic rate and rhythm
LUNGS: Faint wheezing superior lung george anteriorly and posteriorly
ABDOMEN: Soft, without focal tenderness, no r/g, no cvat
NEUROLOGICAL: Unable to assess
SKIN: Warm and dry, skin intact.
MUSCULOSKELETAL: No edema, well perfused.
PSYCH: Unable to assess
Scores
<Boris Ji PA-C - Last Filed: 02/21/24 16:37>
Heart Failure Risk
Heart Failure Risk Score: Not Applicable
Heart Score for Chest Pain Patients
STEMI patient?: Not applicable
Withdrawal Assessment of Alcohol
Withdrawal Assessment Completed?: Not applicable
Sepsis
<Boris Ji PA-C - Last Filed: 02/21/24 16:37>
Sepsis Screening
Sepsis Assessment: Septic Shock
Sepsis Screening: Lactate >2mmol/L, Lactate >/=4mmol/L and Hypotension
Sepsis Screen
Sepsis Screen: Septic Shock
Date: 02/21/24
Time: 16:37
Course
<Boris Ji PA-C - Last Filed: 02/21/24 16:37>
Orders/Labs/Results
Orders:
Orders
02/21/24 14:02
Electrocardiogram (*1) Urgent
Reason for Study: Other
Other Reason for Exam: Possible Sepsis
EKG- Treatment ONCE
IV Insert/Care/Rem.- Treatment PRN
O2 Therapy [RESP] Urgent
Titrate/Wean O2 to maintain O2 sat greater than (%): 93
Special Instructions: TO MAINTAIN CONTINUOUS O2 SATS > OR = 93%
02/21/24 14:22
0.9% Sodium Chloride 1000 ml [Nss] 2,300 ml IV NOW STA
Piperacillin/Tazo 4.5 Gram [Zosyn] 4.5 gram in 100 ml IV NOW
Vancomycin [Vancocin] 2,000 mg 0.9% Sodium Chloride 500 ml [Nss] 500 ml IV NOW
02/21/24 14:24
CR Chest Portable - 1 View Urgent
Comment:
Reason For Exam: cough, vomiting, possible aspiration, fever
Reason Study Needs to be Portable: Patient Unstable
02/21/24 14:25
Acetaminophen 1000MG/100Ml [Ofirmev] 1,000 mg in 100 ml IV ONCE
Acetaminophen IV Indication:: No RI & No Enteral Access
02/21/24 14:27
Complete Blood Count/With Diff Urgent
Comprehensive Metabolic Panel Urgent
Lactic Acid Q4H
Comment: ON ICE, CANCEL 2ND ORDER IF FIRST LACTIC ACID LEVEL <2
Blood Culture Q30M
AZIZA Source: Blood/Venous
Specimen Description:
Blood Culture Q30M
AZIZA Source: Blood/Venous
Specimen Description:
Influenza A+B Rapid Molecular Urgent
AZIZA Source: Nasal Swab
Specimen Description:
02/21/24 14:30
Straight cath- Treatment ONCE
02/21/24 14:41
Urinalysis Reflex To Culture Urgent
Date Specimen was Collected: 02/21/24
Time Specimen was Collected: 14:02
Urine Microscopic Reflex Cult Urgent
Urine Culture Urgent
AZIZA Source: U
Specimen Description:
Date Specimen was Collected: 02/21/24
Time Specimen was Collected: 14:02
02/21/24 15:00
COVID-19 Antigen Urgent
Source: Nasal Swab
02/21/24 15:58
Admit/Transfer Patient As Directed
Co-Sign Provider:
Level of Care: Inpatient admission
Assign to:: IMU- Intermediate Care
Physician / Group: Vance Trejo MD
Diagnosis: Sepsis
Reason for Hospitalization: Sepsis
Expected length of stay greater than two midnights?: Yes
ELOS- Estimated Length of Stay in days: 3
I certify the patient meets the requirements for IP care: Yes
02/21/24 16:07
PRN Pain Medication Management As Directed
May give lesser potent ordered pain med per pt: Yes
preference::
Protocol:: Medication orders for pain may be administered in a
manner that supports deferring to patient preference
when the pt is:
- Requesting an ordered lesser potent pain medication.
Least to most potent pain medications are defined
as: acetaminophen < NSAID < tramadol < opioids
(morphine, oxycodone, hydromorphone).
- Requesting a lesser dose of the same medication IF
ORDERED.
- Requesting a less intrusive route of administration
if both routes are prescribed by the provider (PO <
IV).
02/21/24 18:15
Lactic Acid Q4H
Comment: ON ICE, CANCEL 2ND ORDER IF FIRST LACTIC ACID LEVEL <2
Abnormal Lab Results
02/21/24 02/21/24
14:27 14:41
WBC 24.9 H 10^3/uL
(4.8-10.8)
RBC 4.61 L 10^6/uL
(4.70-6.10)
MCH 31.2 H pg
(27.0-31.0)
RDW 15.6 H %
(11.5-14.5)
Abs Immat Gran (auto) 0.2 H 10^3/uL
(0-0.05)
Absolute Neuts (auto) 22.6 H 10^3/uL
(1.4-6.5)
Absolute Lymphs (auto) 1.0 L 10^3/uL
(1.2-3.4)
Absolute Monos (auto) 1.1 H 10^3/uL
(0.1-0.6)
Immature Gran % 0.8 H %
(0-0.5)
Neutrophils % 90.5 H %
(42.2-75.2)
Lymphocytes % 3.9 L %
(20.5-51.1)
Carbon Dioxide 21 L mmol/L
(22-30)
Creatinine 1.4 H mg/dL
(0.7-1.3)
Glucose 130 H mg/dl
(70-99)
Lactic Acid 5.3 H* mmol/L
(0.7-2.0)
Total Bilirubin 1.8 H mg/dl
(0.2-1.3)
Ur Occult Blood Reflex 4+ A
(Negative)
Leukocyte Esterase Rfl 2+ A
(Negative)
Urine WBC (Reflex) >100 A /HPF
(0-5)
Urine Albumin (Reflex) 2+ A
(Neg - Trace)
02/21/24 14:27
02/21/24 14:27
Vital Signs
Initial and Last Documented VS:
Initial Vital Signs
Pulse Resp BP
130 30 101/59
02/21/24 14:03 02/21/24 14:03 02/21/24 14:03
Last Documented Vital Signs
Temp Pulse Resp BP Pulse Ox
103.7 F H 110 22 86/49 93
02/21/24 14:34 02/21/24 16:00 02/21/24 15:30 02/21/24 16:00 02/21/24 14:34
Cristoferlt;Lobo Leon DO - Last Filed: 02/21/24 14:52>
Orders/Labs/Results
Orders:
Orders
02/21/24 14:02
Electrocardiogram (*1) Urgent
Reason for Study: Other
Other Reason for Exam: Possible Sepsis
EKG- Treatment ONCE
IV Insert/Care/Rem.- Treatment PRN
O2 Therapy [RESP] Urgent
Titrate/Wean O2 to maintain O2 sat greater than (%): 93
Special Instructions: TO MAINTAIN CONTINUOUS O2 SATS > OR = 93%
02/21/24 14:22
0.9% Sodium Chloride 1000 ml [Nss] 2,300 ml IV NOW STA
Piperacillin/Tazo 4.5 Gram [Zosyn] 4.5 gram in 100 ml IV NOW
Vancomycin [Vancocin] 2,000 mg 0.9% Sodium Chloride 500 ml [Nss] 500 ml IV NOW
02/21/24 14:24
CR Chest Portable - 1 View Urgent
Comment:
Reason For Exam: cough, vomiting, possible aspiration, fever
Reason Study Needs to be Portable: Patient Unstable
02/21/24 14:25
Acetaminophen 1000MG/100Ml [Ofirmev] 1,000 mg in 100 ml IV ONCE
Acetaminophen IV Indication:: No RI & No Enteral Access
02/21/24 14:27
Complete Blood Count/With Diff Urgent
Comprehensive Metabolic Panel Urgent
Lactic Acid Q4H
Comment: ON ICE, CANCEL 2ND ORDER IF FIRST LACTIC ACID LEVEL <2
Blood Culture Q30M
AZIZA Source: Blood/Venous
Specimen Description:
Blood Culture Q30M
AZIZA Source: Blood/Venous
Specimen Description:
Influenza A+B Rapid Molecular Urgent
AZIZA Source: Nasal Swab
Specimen Description:
02/21/24 14:30
Straight cath- Treatment ONCE
02/21/24 14:41
Urinalysis Reflex To Culture Urgent
Date Specimen was Collected: 02/21/24
Time Specimen was Collected: 14:02
Urine Microscopic Reflex Cult Urgent
Urine Culture Urgent
AZIZA Source: U
Specimen Description:
Date Specimen was Collected: 02/21/24
Time Specimen was Collected: 14:02
02/21/24 15:00
COVID-19 Antigen Urgent
Source: Nasal Swab
02/21/24 15:58
Admit/Transfer Patient As Directed
Co-Sign Provider:
Level of Care: Inpatient admission
Assign to:: IMU- Intermediate Care
Physician / Group: Vance Trejo MD
Diagnosis: Sepsis
Reason for Hospitalization: Sepsis
Expected length of stay greater than two midnights?: Yes
ELOS- Estimated Length of Stay in days: 3
I certify the patient meets the requirements for IP care: Yes
02/21/24 16:07
PRN Pain Medication Management As Directed
May give lesser potent ordered pain med per pt: Yes
preference::
Protocol:: Medication orders for pain may be administered in a
manner that supports deferring to patient preference
when the pt is:
- Requesting an ordered lesser potent pain medication.
Least to most potent pain medications are defined
as: acetaminophen < NSAID < tramadol < opioids
(morphine, oxycodone, hydromorphone).
- Requesting a lesser dose of the same medication IF
ORDERED.
- Requesting a less intrusive route of administration
if both routes are prescribed by the provider (PO <
IV).
02/21/24 18:15
Lactic Acid Q4H
Comment: ON ICE, CANCEL 2ND ORDER IF FIRST LACTIC ACID LEVEL <2
Abnormal Lab Results
02/21/24 02/21/24
14:27 14:41
WBC 24.9 H 10^3/uL
(4.8-10.8)
RBC 4.61 L 10^6/uL
(4.70-6.10)
MCH 31.2 H pg
(27.0-31.0)
RDW 15.6 H %
(11.5-14.5)
Abs Immat Gran (auto) 0.2 H 10^3/uL
(0-0.05)
Absolute Neuts (auto) 22.6 H 10^3/uL
(1.4-6.5)
Absolute Lymphs (auto) 1.0 L 10^3/uL
(1.2-3.4)
Absolute Monos (auto) 1.1 H 10^3/uL
(0.1-0.6)
Immature Gran % 0.8 H %
(0-0.5)
Neutrophils % 90.5 H %
(42.2-75.2)
Lymphocytes % 3.9 L %
(20.5-51.1)
Carbon Dioxide 21 L mmol/L
(22-30)
Creatinine 1.4 H mg/dL
(0.7-1.3)
Glucose 130 H mg/dl
(70-99)
Lactic Acid 5.3 H* mmol/L
(0.7-2.0)
Total Bilirubin 1.8 H mg/dl
(0.2-1.3)
Ur Occult Blood Reflex 4+ A
(Negative)
Leukocyte Esterase Rfl 2+ A
(Negative)
Urine WBC (Reflex) >100 A /HPF
(0-5)
Urine Albumin (Reflex) 2+ A
(Neg - Trace)
02/21/24 14:27
02/21/24 14:27
Vital Signs
Initial and Last Documented VS:
Initial Vital Signs
Pulse Resp BP
130 30 101/59
02/21/24 14:03 02/21/24 14:03 02/21/24 14:03
Last Documented Vital Signs
Temp Pulse Resp BP Pulse Ox
103.7 F H 110 22 86/49 93
02/21/24 14:34 02/21/24 16:00 02/21/24 15:30 02/21/24 16:00 02/21/24 14:34
<Boris Ji PA-C - Last Filed: 02/21/24 16:37>
MDM/Problems Addressed
Differential Diagnosis Includes:
Sepsis/bacteremia, UTI, pneumonia, aspiration, dehydration
MDM/Problems Addressed:
73-year-old male presenting emergency department for evaluation of reported fever, lethargy, found here to have soiled himself and have bilious emesis. Rectal temperature of 103.7. Patient is hypotensive at 93/50, tachycardic with a rate up to as
high as 142 bpm and increased respiratory rate. Concern for septic shock. Sepsis fluid bolus, broad-spectrum antibiotics ordered. Labs including blood cultures, lactic acid, urinalysis and chest x-ray ordered. Patient to be admitted.
Chronic conditions affecting care: Neurological disorder
Acute Exacerbation and/or Progression of Chronic Illness: Neurological disorder
<Boris Ji PA-C - Last Filed: 02/21/24 16:37>
*Radiology
Radiology exam reviewed: preliminary read by ED provider (suspected left basilar pneumonia)
*Pulse Oximetry
Patient hypoxic: no
*EKG
Heart Rate: 116
Rate: tachycardiac
Rhythm: sinus and PVC's
Ischemia: no ischemia
*Pet Care Technician Interpretation
Rate: tachycardiac
Rhythm: sinus
*Critical Care Note
Total Time (30-74mins, 75-104mins- exclusive of procedures): 35
comment:
Critical care statement: A total of 35 minutes of critical care time was provided for this patient. This includes management of unstable vital signs, evaluation of the patient at bedside, reviewing the patient's pertinent medical records, discussion
with consultants, review of old EKGs and review of pertinent medical records. This time with separate from time utilized to perform the aforementioned documented procedures
Data Reviewed
Review of Other/Old Records Reveals: Labs, Records and Discharge Summary
Source: records
<Boris Ji PA-C - Last Filed: 02/21/24 16:37>
Comment
Comment:
Leukocytosis of 25,000 noted. Lactic acid 5.3 Patient also has a mild TELMA. Concern for septic shock. Continuing sepsis fluids and broad spectrum abx
Patient Management
Discussion with other providers: Hospitalist
Escalation/DeEscalation of care consider admission/obs:
Hospitalist team accepts for continued evaluation and treatment.
ED Attending Note
<Boris Ji PA-C - Last Filed: 02/21/24 16:37>
-
Portions of this chart may have been created with voice recognition software.� Occasional wrong word or��sound alike� substitutions may have occurred due to the inherent limitations of voice recognition software.
<Lobo Leon DO - Last Filed: 02/21/24 14:52>
ED Attending Note
Patient seen and examined by attending physician: Yes
I performed the substantive portion of visit, reviewed & personally made and approve the management plan that is documented in note by myself or NURIS.: Yes
ED Attending Note:
I agree with Wan's note.
Pt presents with increased confusion, fever, lethargy.
General: Somnolent but opens eyes to voice. Rigors present
Vitals: Febrile, tachycardic, mildly hypotensive
Head: Atraumatic
Eyes: Pupils equal, EOMI
Throat: Airway intact, no exudates, dry mucosa with biliary staining
Neck: Trachea midline
Lungs: Clear and equal b/l
Heart: Regular rate, no murmurs
Abd: Soft, no apparent tenderness, No pulsatile mass
Neuro: Grossly nonfocal
Skin: Warm, dry, no rash
Extremities: pulses equal b/l, no edema
Patient presents with fever, tachycardia, low blood pressure. Sepsis fluid bolus already initiated. Broad-spectrum antibiotics ordered as well as antipyretics. Testing initiated to identify source of infection. Patient will require
hospitalization.
Discharge Plan
Departure
Patient Disposition: Admit
Date of Disposition: 02/21/24
Time of Disposition: 15:02
Presentation/result/management discussed w/ accepting MD/DO: Hospitalist
Discharge Problem:
Septic shock, Vomiting, TELMA (acute kidney injury)
Interventions
Interventions:
*Risk Screen - Suicide Last Done: 02/21/24 14:03
*General Assessment Last Done: 02/21/24 14:03
*Neglect/Abuse Screening Last Done: 02/21/24 14:03
ED- Fall Risk Assessment Last Done: 02/21/24 15:40
*ED COVID-19 Vaccine History Last Done: 02/21/24 15:14
ED- Pulmonary Assessment Last Done: 02/21/24 15:40
ED- Neurological Assessment Last Done: 02/21/24 15:40
ED- Cardiac Assessment Last Done: 02/21/24 15:40
ED Swallowing Screen Last Done: 02/21/24 15:40
[2024-02-21 14:40] LABS: Hematocrit 43.1 % (39.0-52.0); Hemoglobin 14.4 g/dL (13.0-18.0); Mean Corp Hgb Conc. 33.4 g/dL (33.0-37.0); Mean Corpuscular Hgb 31.2 pg (27.0-31.0); Mean Corpuscular Volume 93.5 fL (80.0-94.0); Mean Platelet Volume 8.7 fL (7.4-10.4); Platelet Count 192 10^3/uL (130-400); Red Blood Cell Count 4.61 10^6/uL (4.70-6.10); Red Cell Dist. Width 15.6 % (11.5-14.5); White Blood Cell Count 24.9 10^3/uL (4.8-10.8)
[2024-02-21 14:50] LABS: Urine Albumin 2+ (Neg - Trace); Urine Bilirubin Negative (Negative); Urine Character Slightly Cloudy (Clear); Urine Color Yellow; Urine Glucose Negative (Negative); Urine Ketone Negative (Negative); Urine Leukocyte 2+ (Negative); Urine Nitrite Negative (Negative); Urine Occult Blood 4+ (Negative); Urine Urobilinogen Negative (Neg - 1+)
[2024-02-21] MEDS: OFIRMEV 100 IV (14:50)
[2024-02-21 14:53] LABS: AST (SGOT) 33 U/L (17-59); Alkaline Phosphatase 77 U/L (38-126); Blood Urea Nitrogen 20 mg/dl (9-20); Calcium 8.6 mg/dl (8.4-10.2); Carbon Dioxide 21 mmol/L (22-30); Chloride 103 mmol/L (98-107); Estimated Creatinine Clearance 49 ml/min; Glucose 130 mg/dl (70-99); Potassium 3.8 mmol/L (3.5-5.1); Sodium 140 mmol/L (135-145); Total Bilirubin 1.8 mg/dl (0.2-1.3); Total Protein 6.5 g/dl (6.3-8.2); eGFR 52.74
[2024-02-21 14:59] LABS: Urine Squamous Cell None seen /LPF (Few)
[2024-02-21 15:00] LABS: Urine White Cell >100 /HPF (0-5)
[2024-02-21 15:02] LABS: ALT (SGPT) 44 U/L (0-50)
[2024-02-21] MEDS: NSS 2300 ML IV (15:03)
[2024-02-21] MEDS: ZOSYN 100 IV (15:04)
[2024-02-21 15:08] LABS: % Basophils 0.3 % (0-2); % Immature Granulocytes 0.8 % (0-0.5); % Lymphocytes 3.9 % (20.5-51.1); % Monocytes 4.5 % (1.7-9.3); % Neutrophils 90.5 % (42.2-75.2); Absolute Basophils 0.1 10^3/uL (0-0.2); Absolute Immature Granulocytes 0.2 10^3/uL (0-0.05); Absolute Monocytes 1.1 10^3/uL (0.1-0.6); Absolute Neutrophils 22.6 10^3/uL (1.4-6.5); Nucleated Red Blood Cells % 0.1 % (-)
[2024-02-21 15:22] LABS: Lactic Acid 5.3 mmol/L (0.7-2.0)
[2024-02-21 15:34] LABS: COVID-19 Antigen Negative (Negative)
[2024-02-21] MEDS: VANCOCIN 540 MG IV (17:25)
--- NOTE | 2024-02-21 17:42 | HPS.HSE ---
Addendum entered and electronically signed by Vance Trejo MD 02/21/24 22:06:
Attending Addendum-
I performed a history and physical exam of the patient and discussed his management with the resident. I reviewed the resident's note and agree with the documented findings and plan of care CC/HPI- Patient present from [place] due to lethargy nausea
vomiting and CIMS. Patient is poor historian due to dementia. Seen with son and daughter present. Full 12 point ROS reviewed and negative except as documented Exam- vitals reviewed in EMR GEN-lethargic arousable answering questions heart tachycardic
lungs scattered wheeze crackles at bases abd soft distended NT LE no edema
# Septic Shock / Acute Delirium
- bolus'd x 4 L - start levophed
- start abx for UTI and PNA coverage
- trend lactate
- maintain MAP > 65
- monitor closely
- covid and flu neg
- blood and urine cx pend
- check norovirus
# TELMA
- prerenal
- judicious IVF
- check Fena if no improvement
- repeat BMP in am
# GBM
- cont decadron
# HLD
- cont atorvastatin
# Dementia
- acute delirium from sepsis
- hopeful to get back to baseline after infection treated
# Seizure
- cont keppra
Code FULL d/w POA
Dispo from [facility]
ACP
Patient unable to consent due to MS, son and daughter present, time spent explanation of advance directives, changes in health status, patient�s health care wishes if the patient becomes unable to make health decisions, goals of care, code status,
and prognosis- poor prog, discussed code at great length 'i dont know what he would want we've never discussed it, just do everything!' 18 minutes
CC
Due to a high probability of clinically significant, life-threatening deterioration, the patient required a high level of preparedness to intervene emergently. I personally spent this critical care time directly and personally managing the patient.
This critical care time included obtaining a history; examining the patient; ordering and review of studies and STAT labs; arranging urgent treatment with development of a management plan; evaluation of patient's response to treatment; reassessment;
and, discussions with other providers.
This critical care time was performed to assess and manage the high probability of imminent, life-threatening deterioration that could result in multi-organ failure. It was exclusive of separately billable procedures and treating other patients and
teaching time. Total time documented is also exclusive of any additional time listed that was spent in advance care planning discussion
Total critical care time: Approximately 49 minutes
Original Note:
Family Physician
-
Family Physician: Melo Carlson
Chief Complaint
-
Sepsis secondary to Pneumonia
History of Present Illness
73 year old male comes to the ED via EMS from care [facility] due to recent change in mental status as well as a cough, fever, vomiting and increased lethargy. Patient is unable to communicate coherently as he has underlying
dementia. His son and daughter were there in the room to help relay his history. Son explained that he last saw his father over the weekend at his care facility and he noticed that he might have some changes in mental acuity at that time as well.
However, he attributed those changes to his dementia as he typically has some good days and bad days. He also explains that the patient was recently treated for urinary tract infection and completed a course of antibiotics within the last couple of
days.
Medical History
Past Medical History
Past Medical History: Reports Cancer (Glioblastoma), CVA, Dementia and Hypercholesterolemia
Past Surgical History: Reports Appendectomy and Brain (Resection of Astrocytoma)
Social History
Unable to obtain full social history at this time due to: Dementia
Tobacco: Non-smoker
Alcohol: None
Drug: None
Personal:
Living: Care Home
Family History
Family History: Not pertinent
Allergies / Home Medications
Allergies reflects when Allergies were last updated in [facility].
Home Medications with original date entered in [facility]
Allergy/Medication List:
Allergies
Allergy/AdvReac Type Severity Reaction Status Date / Time
No Known Allergies Allergy Verified 02/21/24 14:00
Home Medications
levetiracetam 500 mg tablet 500 mg PO BID Seizures 12/31/21
tamsulosin 0.4 mg capsule 0.4 mg PO HS Urinary issue 12/31/21
aspirin 81 mg chewable tablet 81 mg PO DAILY #0 tabs 01/04/22
dutasteride 0.5 mg capsule 0.5 mg PO DAILY Urinary issue #90 caps 01/08/22
atorvastatin 40 mg tablet 40 mg PO DAILY High Cholesterol 10/10/23
midodrine 2.5 mg tablet 2.5 mg PO BIDPRN PRN Dizziness with hypotension #10 tabs 10/13/23
thiamine HCl (vitamin B1) 100 mg tablet 200 mg (2 x 100 mg) PO DAILY #30 tabs 10/13/23
multivitamin with folic acid 400 mcg tablet (Tab-A-Tayo) 1 tab PO DAILY supplements, history of glioblastoma #30 tabs 11/25/23
acetaminophen 650 mg tablet,extended release 1,300 mg PO DAILY 02/21/24
dexamethasone 2 mg tablet 1 mg PO DAILY Anti-inflammatory 02/21/24
neomycin-bacitracn Zn-polymyxn 3.5 mg-400 unit-5,000 unit top oint pkt (Triple Antibiotic) 1 applic topical WESA@0900 2nd toe 02/21/24
Review of Systems
-
Unable to obtain full review of systems at this time due to: Dementia
History Source: Family and Transfer Record
A 12 point ROS was completed and negative except as noted: Yes
Abdomen/GI: Reports Constipated (was feeling discomfort and had a bout of diarrhea in the ED)
Psych: Reports Dementia
Physical Exam
Vital Signs
Vital Signs
Temp Pulse Resp BP Pulse Ox
103.7 F H 113 20 97/78 92
02/21/24 14:34 02/21/24 17:30 02/21/24 17:30 02/21/24 17:30 02/21/24 17:30
Physical Exam
General: Appears in Distress
HEENT: NormoCephalic and Anicteric
Respiratory: Wheezes and Crackles
Cardiac: S1/S2, Regular Rhythm and Tachycardia
GI: Distended
Musculoskeletal: Edema, Left Lower Extremity (1+ Edema) and Edema, Right Lower Extremity (1+ Edema)
Skin: Other (Ecchymosis 2-3cm bilateral upper extremities )
Neuro: Awake
Psych: Agitated and Apparent Dementia
Laboratory Results
-
02/21/24 14:27
02/21/24 14:27
Laboratory Results
Lactic Acid 5.3 mmol/L (0.7-2.0) H* 02/21/24 14:27
Total Bilirubin 1.8 mg/dl (0.2-1.3) H 02/21/24 14:27
AST 33 U/L (17-59) 02/21/24 14:27
ALT 44 U/L (0-50) 02/21/24 14:27
Alkaline Phosphatase 77 U/L (38-126) 02/21/24 14:27
Data Reviewed
-
Diagnostic Radiology: Report Reviewed by me, Discussed with Physician, Discussed with Patient and Discussed with Family
Lab Data: Labs Reviewed by me, Discussed with Physician, Discussed with Patient and Discussed with Family
Impression/Plan
-
Assessment:
73 yo male presents to the ED due to altered mental mental status, cough, vomiting, fever, as well as increased lethargy. Patient was found to be septic and given fluids and started on antibiotics in the ED. Patient's condition improved after
initial treatment however he still remains hypotensive.
PLAN:
#Sepsis due to probable aspiration pneumonia
-CXR- bibasilar opacities which are new from prior and may represent pneumonia or pneumonitis in the sequelae of aspiration
-Will give NSS Bolus 1000mL, continue per sepsis protocol
-Start Levofloxacin 750mg
-Await Blood and Respiratory Cultures
-Check Lactate
-COVID/Flu Negative
-Duoneb started 4mL q6 due to wheezing
-O2 supplementation as needed
-Consider Levophed if blood pressure continues to drop and doesn't correct with IVF
#Possible Gastroenteritis with diarrhea
-Check Norovirus
#Possible UTI
-Check Urine Cultures/UA
-Levofloxacin 750mg should help with possible UTI as well
#Dementia
-Supportive therapy
#History of Glioblastoma
-Continue dexamethasone 2mg
-Continue Levetiracetam 500mg BID
#Hyperlipidemia
-Continue Atorvastatin
#Urinary Retention
-Continue Dutasteride
-Stopped Tamsulosin due to hypotension. Will resume once BP is under control
Full Code
DVT Prophylaxis: Lovenox
[2024-02-21] MEDS: NSS 1000 IV ×2 (18:38→21:55)
[2024-02-21] MEDS: LEVOPHED 250 IV (19:43)
[2024-02-21] MEDS: TYLENOL/FEVERALL 650 MG RECTAL (21:56)
[2024-02-21] MEDS: LOVENOX 40 MG SC (21:56)
[2024-02-21] MEDS: LEVAQUIN 150 IV (22:04)
[2024-02-21] MEDS: MORPHINE SULFATE 1 MG IV (22:23)
[2024-02-21] MEDS: KEPPRA PO (22:40)
[2024-02-21] MEDS: DUONEB INH (22:55)
--- NOTE | 2024-02-21 23:35 | W.PN.UPDATE ---
Update Note
Progress Note Update
Pt arrived to IMU with tachypnea with RR 30-40, [id number] Hypotensive requiring levophed. RN increased WOB- will try dose of morphine. Lactate 4.0 (from 5.3). Currently receiving sepsis bolus.
2320 PT with rectal temps 102 despite tylenol,rigors. Remains with tachypnea RR36. Increase wob. Pt with dementia and unable to verbalize but pt appears restless and unable to get comfortable.
Will check ABG, transfer to icu for low threshold for intubation.
Spoke with son,Marcelo- update given on fathers status and that i will be transferring him to ICU for resp distress. He would like pt to remain full code for now and is ok with intubation if needed.
[2024-02-22] VITALS (80 sets, daily range): BP systolic 72–139; BP diastolic 49–96; BMI 31.5
[2024-02-22 00:15] LABS: O2 Saturation % 99.3 % (94-98); PCO2 25 mmHg (35-48); PO2 97 mmHg (83-108); pH 7.33 (7.35-7.45)
--- NOTE | 2024-02-22 00:15 | PTCARENOTE ---
Patient received in bed from IMU. Patient drowsy, follows simple commands. Sinus Tachycardia on monitor, febrile, blood pressure as documented. Weak but palpable pulses. Lungs coarse bilaterally, pulse ox 100% on 15L MFNC. + tachypnea, +
wheezing. Abdomen round with positive bowel sounds. Incontinent of liquid stool. Bilateral knees mottled. #20 g RAC with Levophed gtt infusing at 8 mcg/min, #22 g in right forearm with IVF infusing as ordered. CHG bath given.
[2024-02-22 00:16] LABS: HCO3 13.2 mmol/L (21-28); O2 Therapy 15L
[2024-02-22] MEDS: KEPPRA 500 MG IV ×2 (00:27→20:07)
--- NOTE | 2024-02-22 00:30 | PTCARENOTE ---
Rec'd pt as admit from ED. Pt tachycardic, tachypneic, febrile, hypotensive upon admission. Levophed gtt rec'd at 4mcg, this RN titrated per protocol, see worklist documentation. Rectal tylenol given per MAY without relief. Repeat temperature 102
rectally. Pt packed in ice packs. Lactic acid resulted 4.0, CRIMINAL PROFILER Miriam notified via TT. IVF bolus given per MAY. Pt incontinent of several soft BMs. Pt with gagging, dry heaving, but no emesis. Hygiene care performed. Pt with worsening tachycardia,
HR 140s, RR 36. CRIMINAL PROFILER placed ICU tx orders. Report given to MILIND Marcus. Pt transported to ICU with assistance of RT.
--- NOTE | 2024-02-22 00:40 | RESPNOTE ---
PT was transported from IMU 3345 to ICU 3359 on 15 L with RN and RT assistance and tolerated well.
[2024-02-22] MEDS: SODIUM BICARBONATE 50 MEQ IV (00:57)
[2024-02-22] MEDS: SODIUM BICARBONATE 1150 MEQ IV ×2 (01:25→13:08)
[2024-02-22] MEDS: DUONEB 4 ML INH (01:55)
[2024-02-22 02:17] LABS: Lactic Acid 3.8 mmol/L (0.7-2.0)
[2024-02-22 02:28] LABS: Blood Urea Nitrogen 26 mg/dl (9-20); Calcium 6.9 mg/dl (8.4-10.2); Carbon Dioxide 19 mmol/L (22-30); Chloride 109 mmol/L (98-107); Estimated Creatinine Clearance 35 ml/min; Glucose 111 mg/dl (70-99); Potassium 3.9 mmol/L (3.5-5.1); Sodium 139 mmol/L (135-145); eGFR 32.42
[2024-02-22] MEDS: OFIRMEV 100 IV ×2 (02:55→17:22)
--- NOTE | 2024-02-22 02:59 | PTCARENOTE ---
Temp noted, ofirmev given
[2024-02-22] MEDS: LEVOPHED 250 IV ×2 (03:40→09:37)
--- NOTE | 2024-02-22 05:30 | PTCARENOTE ---
Patient reassessed, more alert. temp slowly improving. bladder scan reveals 51 ml. labs sent,
[2024-02-22 05:39] LABS: Hemoglobin 12.6 g/dL (13.0-18.0); Mean Corp Hgb Conc. 34.1 g/dL (33.0-37.0); Mean Corpuscular Hgb 31.9 pg (27.0-31.0); Mean Corpuscular Volume 93.7 fL (80.0-94.0); Mean Platelet Volume 9.4 fL (7.4-10.4); Platelet Count 175 10^3/uL (130-400); Red Blood Cell Count 3.95 10^6/uL (4.70-6.10); Red Cell Dist. Width 15.6 % (11.5-14.5); White Blood Cell Count 29.5 10^3/uL (4.8-10.8)
[2024-02-22 05:54] LABS: INR 1.53; PT 18.6 Sec (11.4-14.6)
[2024-02-22 05:55] LABS: APTT 40.1 Sec (23.4-35.0)
[2024-02-22 06:00] LABS: Lactic Acid 3.4 mmol/L (0.7-2.0)
[2024-02-22 06:18] LABS: Blood Urea Nitrogen 29 mg/dl (9-20); Calcium 6.9 mg/dl (8.4-10.2); Carbon Dioxide 18 mmol/L (22-30); Chloride 108 mmol/L (98-107); Estimated Creatinine Clearance 32 ml/min; Glucose 105 mg/dl (70-99); Magnesium 1.2 mg/dl (1.6-2.3); Potassium 3.5 mmol/L (3.5-5.1); Sodium 137 mmol/L (135-145); eGFR 29.07
--- NOTE | 2024-02-22 07:31 | W.PN.HOSP.TC ---
Addendum entered and electronically signed by Vance Trejo MD 02/22/24 21:41:
Attending Addendum-
I saw and evaluated the patient. I reviewed the resident�s note and agree with findings and plan as documented in the resident�s note. Sub: more alert today. patient complains of SOB. Patient is poor historian due to dementia. had to be placed on
pressors overnight and transferred to ICU. Seen with son present. Patient still tachycardic and febrile. Full 12 point ROS reviewed and negative except as documented Exam- vitals reviewed in EMR GEN-alert answering questions heart tachycardic lungs
scattered wheeze crackles at bases abd soft, distended high pitched BS NT - acuna in place LE no edema
# Septic Shock secondary to UTI
- cont care in ICU- critically ill
- cont levophed to maintain MAP>65
- ID c/s
- abx changed from zosyn+vanco->levaquin->cefepime+azithro-> zosyn
- trend lactate - improving
- covid and flu neg
- blood cx pos for K pnemo Urine cx pos for GN bacilli
# TELMA
- prerenal
- worsening
- judicious IVF given and Levophed added
- check Fena
- repeat BMP in am
- anticipate improvement
# Metabolic Acidosis
- from septic shock
- cont bicab gtt
# Abdominal Distention
- check KUB
# Hypocalcemia
- replete
# Hypomagnesemia
- replete
# GBM
- cont decadron
# HLD
- cont atorvastatin
# Acute Delirium on Dementia
- from sepsis
- hopeful to get back to baseline after infection treated
# Seizure
- cont keppra
Code FULL d/w POA
Dispo from [facility]
CC
Due to a high probability of clinically significant, life-threatening deterioration, the patient required a high level of preparedness to intervene emergently. I personally spent this critical care time directly and personally managing the patient.
This critical care time included obtaining a history; examining the patient; ordering and review of studies and STAT labs; arranging urgent treatment with development of a management plan; evaluation of patient's response to treatment; reassessment;
and, discussions with other providers.
This critical care time was performed to assess and manage the high probability of imminent, life-threatening deterioration that could result in multi-organ failure. It was exclusive of separately billable procedures and treating other patients and
teaching time.
Total critical care time: Approximately 42 minutes
Original Note:
Today's Communication/Plan
-
ID Consulted, will see if they want to switch abx. Continue management of blood pressure and continue with fluid therapy. Awaiting cultures.
Assessment / Plan
Assessment / Plan
Assessment:
73 yo male presents to the ED due to altered mental mental status, cough, vomiting, fever, as well as increased lethargy. Patient was found to be septic and given fluids and started on antibiotics in the ED. Patient's condition improved after
initial treatment however he still remains hypotensive. Was switched to ICU level care over night due to continued hypotension even with fluids. Due to continued hypotension, was started on pressors.
Plan:
#Septic Shock due to probably aspiration pneumonia causing acute delirium
- Given 4L NSS bolus yesterday but remained hypotensive - upgraded to ICU last night and started on Levophed
- Vasopressin (20units in 100ml) not given yet
- Weaned off of Levophed, continue to monitor BP for hypotension
- prelim bcx showed gram neg bacili
- Continues to have Fever, ID consulted- input appreciated
- Abx switched to Zosyn 3.375g
- Lactate trending down (3.8 -> 3.4) continue trend
- maintain MAP > 65, remaining stable on Levophed
- covid and flu neg
- Negative Norovirus
- Metabolic acidosis, Probable to increased Lactate
- Currently on 1150 mL Sterile Water with Sodium Bicarbonate
#TELMA
- Most likely pre-renal in nature
- Will continue to give fluids
- Creatinine worsening (2.1 -> 2.3) Continue Fluid management
- Continue monitoring BMP
#Hypocalcemia
-Probable to Worsening kidney function
-Repleting calcium
#Hypomagnesemia
-Metabolic derangement due to sepsis
-Will replete
# Hyperlipidemia
- cont atorvastatin
# Dementia
- acute delirium from sepsis with underlying dementia
- According to son, his baseline is better than current, hopefully returns to baseline as infection resolves
# Seizure prevention from previous brain surgery
- Cont Levetiracetam
Full Code
DVT Prophylaxis: Lovenox
Anticipated Discharge: > 48 hours
Subjective/Interval History
-
Date of Service: February 22, 2024
Patient still unable to communicate well. Still looks a bit delirious. Talked with nurse and was told he has been fairly stable after being transferred to the ICU. Talked with Son at bedside and relayed current findings.
Objective Data
-
Labs:
Laboratory Results
02/22/24 02/22/24 02/22/24
00:05 01:59 04:19
WBC
Hgb
Hct
Plt Count
PT
INR
APTT
HCO3 13.2 L* Cancelled
Sodium 139
Potassium 3.9
Chloride 109 H
Carbon Dioxide 19 L
BUN 26 H
Creatinine 2.1 H
Glucose 111 H
Calcium 6.9 L* D
02/22/24 02/22/24
05:23 05:24
WBC 29.5 H
Hgb 12.6 L
Hct 37.0 L
Plt Count 175
PT 18.6 H
INR 1.53
APTT 40.1 H
HCO3
Sodium 137
Potassium 3.5
Chloride 108 H
Carbon Dioxide 18 L
BUN 29 H
Creatinine 2.3 H
Glucose 105 H
Calcium 6.9 L*
Vital Signs:
Vital Signs
Temp Pulse Resp BP Pulse Ox
100.9 F H 116 25 99/72 100
02/22/24 06:00 02/22/24 06:45 02/22/24 06:45 02/22/24 06:45 02/22/24 06:45
I&O
02/21/24 02/22/24 02/23/24
06:59 06:59 06:59
Intake Total 847.5 / 847.5
Balance 847.5 / 847.5
Review of Systems
-
Unable to obtain full review of systems at this time due to: Dementia
History Source: Family
Constitutional: Reports Fever
EENT: Reports No Symptoms Reported
Respiratory: Reports Wheezing
Musculoskeletal: Reports No Symptoms
Psych: Reports Other (Dementia)
Physical Exam
-
General: Appears in Distress
Respiratory: Wheezes
Cardiac: Regular Rhythm, S1/S2 and Tachycardic
GI: Soft and Nontender
Musculoskeletal: No Clubbing, No Cyanosis and No Edema
Skin: Warm, Dry and Other (2-3 cm ecchymosis bilateral arms)
Neuro: Awake and Alert
Psych: Apparent Dementia
Data Reviewed
-
Labs: Labs Reviewed by me, Discussed with Physician, Discussed with Nurse and Discussed with Family
[2024-02-22] MEDS: DUONEB 3 ML INH ×2 (07:48→19:41)
--- NOTE | 2024-02-22 08:29 | CON.INTV ---
Consultation
Consultation Request
Date/Time Consultation Requested: 02/22/202437
Date/Time Consultation Performed: 02/22/2024827
Requesting Provider: SVEN Ferreira
Performing Provider: Dangelo Pedro MD
Reason for Consultation: Lactic acidosis/TELMA
Medical History
-
Chief Complaint: Change in mental status
History of Present Illness:
73-year-old male non-smoker with a past medical history of BPH with LUTS, history of orthostatic hypotension on prn midodrine, history of glioblastoma on chronic Decadron, seizure disorder, and dementia who presented from [facility] for
change in mental status, abdominal distention, chills and worsening lethargy. HPI obtained from family as well as medical records. Son says that he saw his father over this past weekend and noticed that he was slightly lethargic at that time. He
thought that maybe he was coming down with a viral illness. He has some good days and some bad days given his history of dementia. He then started to have worsening weakness and not eating/drinking as much. His urologist had treated him for a
Klebsiella UTI which resulted over the weekend. Augmentin 500 mg / 125 mg BID x 7 days were prescribed, which the patient reportedly completed. In the ER patient was febrile to 103.7 �F, tachycardic to 130, breathing at 30
breaths/min, BP 101/59, and saturating 93% on room air. Initial labs showed leukocytosis of 24.9, creatinine 1.4, lactate 5.3, T. bili 1.8, urinalysis with +2 leukocyte esterase, >100 urine WBC and COVID antigen was negative. Blood cultures +
urine cultures were collected. CXR showed bibasilar opacities with concern for pneumonia versus pneumonitis. In the ER he was given 2.3 L of IVF NS 0.9%, overfed + Zosyn. He was initially admitted to the IMU, however due to worsening hypotension
requiring Levophed and tachypnea he was transferred to the ICU for close monitoring. [facility] services consulted for additional management/recommendations.
Patient was seen and evaluated this morning. Remains awake although lethargic at times. Currently on 6 L/min via mid flow nasal cannula. Saturating 100%. BP 89/69 on Levophed at 12. Heart rate 120. Patient's son, YARY, at bedside and all
questions were answered. At baseline pt is more interactive and is able to follow all directions. Apparently he turned red in the ER after receiving IV vancomycin. He did vomit in the ER and also at the half-way.
PMHx: BPH with LUTS, glioblastoma, history of radiation therapy, hypercholesterolemia, dementia, Hx of hypertension, orthostatic hypotension on prn midodrine
PSHx: Appendectomy, hip surgery, glioblastoma surgery
Past Medical History
Past Medical History: Other (Above as per HPI)
Past Surgical History: Other (Above as per HPI)
Social History
Tobacco: Non-smoker
Alcohol: None
Drug: None
Living: Usp
Family History
Family History: CAD (Father) and Other (Mother: Alzheimer's dementia)
Allergies / Home Medications
Allergies
Allergy/AdvReac Type Severity Reaction Status Date / Time
No Known Allergies Allergy Verified 02/21/24 14:00
Home Medications
�Medication �Instructions �Recorded �Confirmed �Last Taken �Type
levetiracetam 500 mg tablet 500 mg PO BID Seizures 12/31/21 02/21/24 11/19/23 History
tamsulosin 0.4 mg capsule 0.4 mg PO HS Urinary issue 12/31/21 02/21/24 11/19/23 History
aspirin 81 mg chewable tablet 81 mg PO DAILY #0 tabs 01/04/22 02/21/24 11/19/23 Rx
dutasteride 0.5 mg capsule 0.5 mg PO DAILY Urinary issue #90 01/08/22 02/21/24 11/19/23 Rx
caps
atorvastatin 40 mg tablet 40 mg PO DAILY High Cholesterol 10/10/23 02/21/24 11/19/23 History
midodrine 2.5 mg tablet 2.5 mg PO BIDPRN PRN Dizziness 10/13/23 02/21/24 Unknown Rx
with hypotension #10 tabs
thiamine HCl (vitamin B1) 100 mg 200 mg (2 x 100 mg) PO DAILY #30 10/13/23 02/21/24 11/19/23 Rx
tablet tabs
multivitamin with folic acid 400 1 tab PO DAILY supplements, 11/25/23 02/21/24 11/19/23 Rx
mcg tablet (Tab-A-Tayo) history of glioblastoma #30 tabs
acetaminophen 650 mg 1,300 mg PO DAILY 02/21/24 02/21/24 Unknown History
tablet,extended release
dexamethasone 2 mg tablet 1 mg PO DAILY Anti-inflammatory 02/21/24 02/21/24 Unknown History
neomycin-bacitracn Zn-polymyxn 3.5 1 applic topical WESA@0900 2nd toe 02/21/24 02/21/24 Unknown History
mg-400 unit-5,000 unit top oint
pkt (Triple Antibiotic)
Review of Systems
-
Unable to Obtain full review of systems at this time due to: Acuity
Vitals / Labs / Diagnostic Testing
Vital Signs
Temp Pulse Resp BP Pulse Ox
100.9 F H 100 24 99/72 99
02/22/24 06:00 02/22/24 07:55 02/22/24 07:55 02/22/24 06:45 02/22/24 07:55
Lab Data
02/22/24 05:24
02/22/24 05:24
Laboratory Results
02/22/24 02/22/24 02/22/24
00:05 04:19 05:23
PT 18.6 H
INR 1.53
APTT 40.1 H
pH 7.33 L Cancelled
pCO2 25 L Cancelled
pO2 97 Cancelled
HCO3 13.2 L* Cancelled
O2 Delivery Level 15l Cancelled
Microbiology
02/21/24 14:27 Blood/Venous Blood Culture - Preliminary
Positive culture in progress
02/21/24 14:27 Blood/Venous Gram Stain - Preliminary
02/21/24 14:27 Nasal Swab Influenza Types A & B (GARRETT) - Final
Negative for Influenza A & B, NAAT
Negative results must be combined with clinical observations
and patient history.
Nucleic Acid Amplification test (NAAT)performed on the
[employer] platform.
Diagnostic Testing:
Physical Exam
-
HEENT: Normocephalic and Anicteric
Cardiovascular: S1/S2, Rub (n) and Peripheral Edema (negative)
Respiratory: Wheeze (negative), Rales (negative), Rhonchi (negative) and Other (Diminished breath sounds bilaterally)
GI: Soft, Distended (Abdominal obesity), Non Tender and Normal Bowel Sounds
Neurology: Tremors (negative) and Other (Lethargic although easily arousable to voice and tactile stimulation)
Skin: Warm and Dry
General: Respiratory Distress (negative), Comfortable, Chills (negative) and Sweats (negative)
Assessment
-
Assessment: 73-year-old male non-smoker with a past medical history of BPH with LUTS, history of orthostatic hypotension on prn midodrine, history of glioblastoma on chronic Decadron, seizure disorder, and dementia who presented from [facility]
[place] for change in mental status, abdominal distention, chills and worsening lethargy. HPI obtained from family as well as medical records. Son says that he saw his father over this past weekend and noticed that he was slightly lethargic at
that time. He thought that maybe he was coming down with a viral illness. He has some good days and some bad days given his history of dementia. He then started to have worsening weakness and not eating/drinking as much. His urologist had
treated him for a Klebsiella UTI which resulted over the weekend. Augmentin 500 mg / 125 mg BID x 7 days were prescribed, which the patient reportedly completed. In the ER patient was febrile to 103.7 �F, tachycardic to 130,
breathing at 30 breaths/min, BP 101/59, and saturating 93% on room air. Initial labs showed leukocytosis of 24.9, creatinine 1.4, lactate 5.3, T. bili 1.8, urinalysis with +2 leukocyte esterase, >100 urine WBC and COVID antigen was negative. Blood
cultures + urine cultures were collected. CXR showed bibasilar opacities with concern for pneumonia versus pneumonitis. In the ER he was given 2.3 L of IVF NS 0.9%, overfed + Zosyn. He was initially admitted to the IMU, however due to worsening
hypotension requiring Levophed and tachypnea he was transferred to the ICU for close monitoring. [facility] services consulted for additional management/recommendations.
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
Impression:
#Acute respiratory failure with hypoxia on supplemental oxygen likely due to pneumonia in the setting of septic shock
#Septic shock due to pneumonia and possibly due to UTI
#Bibasilar opacities (L >R) likely due to pneumonia/CAP
#Abnormal urinalysis with +2 leukocyte esterase and >100 urine WBC (unable to determine if true infection versus asymptomatic bacteriuria as patient is altered)
#Tachycardic due to sepsis
#Nausea/vomiting
#Leukocytosis
#Anemia
#Metabolic acidosis with preserved anion gap
#TELMA
#Lactic acidosis
#Hypomagnesemia
#Hyperbilirubinemia
Plan:
- Continue with antibiotics (currently on Levaquin)
- Given he is in septic shock, change to cefepime and doxy
- Follow-up cultures (blood + urine cultures from 02/21/2024); collect sputum culture if patient can produce a decent sample
- Stool Cx to r/o norovirus is negative
- Continue with DuoNebs q6 hours with prn doses in between for breakthrough SOB or if needed for mucous expectoration
- Continue vasopressors with Levophed + vasopressin; wean down Levophed dose and once <5 then can stop vasopressin and then continue titrating down Levophed at that point
- PICC line order is in
- Maintain SpO2 >90-94% with supplemental oxygen and titrate down as tolerated
- prn nebulized bronchodilators - not currently bronchospastic
- Aspiration precautions
- Antiemetics as needed; trend QTc if using zofran or reglan (goal <500ms) (QTc: 489ms via EKG on 02/21/2024)
- Continue bicarb gtt and trend lactate until <2mmol/L, trend sHCO3 and check blood gas to trend pH and pOC2
- Maintain MAP>65
- Trend LFTs and T. bili
- Replete electrolytes with K>4, Mg>2
- Maintain euglycemia with goal BG 140-180
- Trend H/H and transfuse if needed to keep Hb>7g/dL; keep plt>20k, unless there is concern for bleeding then keep plt>50k
- Once he awakens more, encourage incentive spirometer use 10x per hour for at least 4 hrs a day
- DVT ppx: Start HSQ
Critical care statement: A total of 41 minutes of critical care time was provided for this patient today. This includes management of unstable vital signs, evaluation of the patient at bedside, reviewing the patient's pertinent medical records
including radiographs, microbiology, laboratory evaluations, and discussion with primary team, consultants, pharmacy, nutrition, physical therapy, case management, charge nurse, critical care nursing, and respiratory therapy.
Data:
CXR 02/21/2024: There are bibasilar opacities which are new from prior and may represent pneumonia or pneumonitis in the sequelae of aspiration.
[2024-02-22] MEDS: VITAMIN B1 200 MG PO (08:55)
[2024-02-22] MEDS: THERAGRAN 1 TABLET PO (08:55)
[2024-02-22] MEDS: LOW STRENGTH ASPIRIN 81 MG PO (08:55)
[2024-02-22] MEDS: KEPPRA 500 MG PO (08:55)
[2024-02-22] MEDS: PROSCAR 5 MG PO (08:55)
[2024-02-22] MEDS: LIPITOR 40 MG PO (08:55)
[2024-02-22] MEDS: DECADRON 1 MG PO (09:11)
--- NOTE | 2024-02-22 09:15 | PTCARENOTE ---
Rec'd pt at 0800 initially dozing then awake to verbal stimuli. Is somewhat lethargic in that he needs direction and stimulation to pay attention. Son who is at the bedside stated that he normally is more wakeful that he is currently. Was able to
tell me his name and birthdate but nothing else and struggled with basic command to keep his mouth open for oral care and meds. Skin is pale and warm. Rectal probe temp 100.5. Pt with bruising on arms. Rylie area sl reddened. Respirs are shallow and
tachypnic. Is dyspnic at rest and with exertion. Didn't cough it up but suctioned from the back of his throat greenish/sanchez thick mucous. Initially was on 15L midflow but weaned down to 6L midflow since 0800 and currently sats are 97-99%. BS are
coarse with exp wheeze. Monitor ST. + pulses. DP pulses are weak. No edema. Rec'd pt on IV Levophed via RAC IV site currently at 12 mcg-will wean/titrate to keep MAP >65. IV Bicarb infusing via R wrist IV site at 100 ml/hr. ABd is round with + bs.
Incont of a mod amt of loose/soft brown stool. Incont of a small to mod amt of yellow urine. Bladder scanned for 64 mls. Mouth and skin care given. Will send labs as orderd. LA and VBG. Repositioned. Pt and son updated on plan of care. Call cohen in
reach. Remains on Enhanced precautions.
[2024-02-22 10:06] LABS: Venous Blood Gas B.E. -4.8 mmol/L (-4 to +4); Venous Blood Gas HCO3 22.1 mmol/L (22-27); Venous Blood Gas O2 Sat % 54.1 %; Venous Blood Gas pCO2 47 mmHg (35-48); Venous Blood Gas pH 7.28 (7.32-7.43); Venous Blood Gas pO2 30 mmHg (30-50)
--- NOTE | 2024-02-22 10:20 | PTCARENOTE ---
Remains resting. Will try to wean IV Levo as BP permits. + Blood culture results given to Dr. Pedro.
[2024-02-22 10:30] LABS: Lactic Acid 5.1 mmol/L (0.7-2.0)
[2024-02-22] MEDS: MAGNESIUM SULFATE 100 IV (10:32)
--- NOTE | 2024-02-22 11:00 | PTCARENOTE ---
Dr. Thakkar aware of LA and Blood culture results. Weaning LEvo as BP permits currently at 8mcg. Mag sulfate 1 gm hung at 1040 per md order
--- NOTE | 2024-02-22 11:43 | CM ---
CM following re: discharge planning.
Discussed in Rounds, reviewed pt's chart, met with pt and pt's son Marcelo at bedside.
Pt is a 73 year old male, admitted with primary dx of Septic Shock due to probably aspiration pneumonia causing acute delirium.
per son, pt has been living at [facility] since August of this year, ambulates with a walker at baseline, has a wheelchair to use for a long distance. Per son, pt's is a patient at and she might be on hospice care.
Emotional support offered and provided. Pt's son stated he feels that his father will be able to return back to [facility] with [facility] outpatient in-house rehab. Also, pt's son stated if his father will need a short term rehab
he agrees and he preferred [facility] SNF or [facility].
PT and OT will evaluate the pt to determine a level of care at discharge.
PCP: Madeleine Carlson
Pharmacy: [facility]
D/C plan: return back to the [facility] vs preferred SNF if recommended b PT/OT.
CM will follow with discharge plan updates as hospitalization processes
--- NOTE | 2024-02-22 11:50 | CON.ID ---
Consultation
-
Date/Time Consultation Requested: 02/22/24 9:19
Date/Time Consultation Performed: 02/22/24 11:50
Requesting Provider: Dr Thakkar
Performing Provider: Dr Rosa
Reason for Consultation: sepsis
Chief Complaint / Past History
Chief Complaint
cough, fever, vomiting
History of Present Illness
Mr Sabillon is a 73 paige old male with history of glioblastoma, resection of astrocytoma and dementia, history is limited due to the condition of the patient. He is a resident of [facility] who presented here 02/20 for change in mental status/lethargy,
fever, cough, vomiting. ER staff noted bilious emesis on his shirt. Of note he was recently treated for a urinary tract infection.
Patient speaks a few noncohernt words - I question the history that he is nonverbal at baseline.
Since arrival here he has been febrile on core Ts to a tamx of 103.7 though overall down trending, bp unstable requiring a max dose of norepi at 12 mcg/min now down to 4 mcg/min, wbc initially 24 today 29, hgb 12, plt 175, L shift noted on arrival,
cr baseline 0.6 on arrival 1.4 and today 2.3, lactic acidosis ongoing in the 5s, uncorrected ca 6.9, t bili 1.8, ast 33, alt 44, alk phos 77, UA >100 wbc/hpf no squamous cells, blood cultures x2 done and one set with klebsiella - resistance markers
suggest not an ESBL, urine culture also with 100 K GNR, CXR bibasilar opacities now - possible pneumonitis/pneumonia
Past History
Additional Past Medical History:
(Glioblastoma), CVA, Dementia and Hypercholesterolemia
Additional Past Surgical History:
Appendectomy and Brain (Resection of Astrocytoma)
Allergy History:
No Known Allergies Allergy (Verified 02/21/24 14:00)
Medications Reviewed: Yes
Social History
Tobacco: Non-Smoker
Alcohol: None
Drug: None
Family History
Family History: Not Pertinent
Review of Systems
Review of Systems
unable to obtain due to the condition of the patient
Vital Signs
Temp Pulse Resp BP Pulse Ox
99.8 F 120 25 89/69 99
02/22/24 11:18 02/22/24 09:15 02/22/24 09:15 02/22/24 09:15 02/22/24 09:15
Physical Exam
Physical Exam
Constitutional: No Acute Distress and Chronically Ill
Cardiovascular: Regular Rate and S1/S2; Negative Murmur or Rub
Pulmonary: Rhonchi and Other (tachypneic); Negative Wheezes or Rales
Gastrointestinal: Soft, Non Tender, Non Distended and Normal Bowel Sounds
Skin: Warm and Dry; Negative Rash or Jaundice
Neurological: Awake
Lab / Diagnostic Study Results
Abs Immat Gran (auto) 0.2 10^3/uL (0-0.05) H 02/21/24 14:27
Absolute Neuts (auto) 22.6 10^3/uL (1.4-6.5) H 02/21/24 14:27
Absolute Lymphs (auto) 1.0 10^3/uL (1.2-3.4) L 02/21/24 14:27
Absolute Monos (auto) 1.1 10^3/uL (0.1-0.6) H 02/21/24 14:27
Absolute Basos (auto) 0.1 10^3/uL (0-0.2) 02/21/24 14:27
Immature Gran % 0.8 % (0-0.5) H 02/21/24 14:27
Neutrophils % 90.5 % (42.2-75.2) H 02/21/24 14:27
Lymphocytes % 3.9 % (20.5-51.1) L 02/21/24 14:27
Monocytes % 4.5 % (1.7-9.3) 02/21/24 14:27
Eosinophils % 0.0 % (0-6) 02/21/24 14:27
Basophils % 0.3 % (0-2) 02/21/24 14:27
PT 18.6 Sec (11.4-14.6) H 02/22/24 05:23
INR 1.53 02/22/24 05:23
Lactic Acid 5.1 mmol/L (0.7-2.0) H* 02/22/24 09:49
Ur Squamous Epith Cells None seen /LPF (Few) 02/21/24 14:41
Microbiology Results
Micro:
02/21/24 21:46 - Final
Feces/Stool Negative for Norovirus GI and GII.
02/21/24 14:41 Urine Culture - Preliminary
Urine Gram negative bacilli
02/21/24 14:27 Blood Culture - Preliminary
Blood/Venous Klebsiella pneumoniae
Gram Stain - Preliminary
02/21/24 21:47 MRSA Screen - Pending
Nose
02/21/24 14:27 Blood Culture - Pending
Blood/Venous
02/21/24 14:27 Influenza Types A & B (GARRETT) - Final
Nasal Swab Negative for Influenza A & B, NAAT
Negative results must be combined with clinical observations
and patient history.
Nucleic Acid Amplification test (NAAT)performed on the
[employer] ID NOW platform.
Assessment / Plan
UTI
Bacteremia - due to Klebsiella
Probable aspiration pneumonitis vs atelectasis vs pneumonia
Seizure Disorder on Keppra
- overall favor urinary source
- follow up ID of the urine culture - likely also Klebsiella
- tested resistance markers were negative
- sputum culture if able to obtain one
- CXR with bibasilar changes - given recent vomiting possible aspiration pneumonitis vs atelectasis, less likely pneumonia
- repeat blood cultures for this gram negative with likely source control not needed in my opinion
- norovirus negative, stools formed - took off of precautions
- start zosyn, stopped cefepime (would avoid cefepime given AMS, seizure disorder, TELMA)
- stopped azithromycin
follow clinically; patient is critically ill on pressors
Care Review
Plan reviewed with: Physician (Dr Thakkar - consult)
--- NOTE | 2024-02-22 12:00 | PTCARENOTE ---
Pt started getting restless- incont of a mod amt of brown loose soft stool. Somewhat calmer after. Tolerating 6L midflow. Currently Levophed at [address] VS as documented[address] Dr. Rosa in -will dc Enhanced precautions. Repositioned. Skin care given.
[2024-02-22] MEDS: ZOSYN 50 IV ×2 (12:13→17:25)
--- NOTE | 2024-02-22 13:07 | PTOTSP ---
SPEECH THERAPY SWALLOW EVALUATION:
Patient exhibits clinical signs of oropharyngeal dysphagia, likely chronic related to history of dementia/CVA, and acutely exacerbated by sepsis secondary to UTI/pneumonia. Patient remains at HIGH RISK for aspiration and related complications due to
tenuous respiratory/pulmonary status and confusion/lethargy. Recommend temporary strict NPO at this time; Consider non-oral medications. ST to follow, re-assess in 24 hours, and determine readiness for p.o. diet and/or instrumental assessment of
swallowing as appropriate. Discussed with son, who was in agreement with plan.
RECOMMEND:
1) temporary strict NPO
2) Consider non-oral medications/nutrition/hydration
3) ST to follow, re-assess in 24 hours
4) ST to determine readiness for instrumental assessment of swallowing as appropriate
[2024-02-22] MEDS: DUONEB INH (13:45)
--- NOTE | 2024-02-22 13:45 | VATNOTE ---
PICC order noted. Discussed with primary RN who states vasopressor is being actively weaned off. Decision made to place midline instead of PICC. While setting up for midline, patient started vomiting. RN made aware, hold placement of IV access at
this time. Will place once patient able to tolerate procedure.
--- NOTE | 2024-02-22 14:00 | PTCARENOTE ---
IV team in to insert midline catheter- will hold off on PICC currently. Just prior to sticking pt -pt vomited about 200 mls total (on 3 occasions) dk schwarz/brown secretions. Audbile gurgling after vomiting. Dr. Pedro aware -will order Reglan.
As pt keeps vomiting- #16 Idanha NG placed R nare at the 66 cm mathew. Instantly 600 suctioned from stomach, NG currently on low intermittent suction. Skin care given. Pt repositioned and will try to get IV line in.
--- NOTE | 2024-02-22 15:00 | PTCARENOTE ---
Levophed currently at 2 mcg. IV team able to place a L upper arm midline catheter. Excellent blood return. Labs sent and Chest and ABd xrays completed. NG draining brown drainage. Pt restful at intervals and restless at other intervals. Speech is
slow/sometimes garbled. At times will follow basic commands. Does get twitchy/tremulous intermittently. BS are coarse. Doesn't really cough well when asked. VS as documented.
[2024-02-22] MEDS: REGLAN 10 MG IV (15:13)
[2024-02-22] MEDS: CALCIUM GLUCONATE 1000 MG IV (15:13)
[2024-02-22] MEDS: FLUSH (NSS) 2 FLUSH IV (15:14)
--- NOTE | 2024-02-22 15:25 | PTCARENOTE ---
Levophed currently at 2 mcg. IV team able to place a L upper arm midline catheter. Excellent blood return. Labs sent and Chest and ABd xrays completed. Reglan 10 mg IV given at 1513, Calcium Gluconate 1 gm IV given per MD order. NG draining brown
drainage. Pt restful at intervals and restless at other intervals. Speech is slow/sometimes garbled. At times will follow basic commands. Does get twitchy/tremulous intermittently. BS are coarse. Doesn't really cough well when asked. Pt definitely
gets orthopnic and more labored/wheezing when lying flat. Better when sitting up VS as documented.
[2024-02-22 15:28] LABS: Hematocrit 35.7 % (39.0-52.0); Mean Corp Hgb Conc. 33.6 g/dL (33.0-37.0); Mean Corpuscular Hgb 31.6 pg (27.0-31.0); Mean Corpuscular Volume 93.9 fL (80.0-94.0); Platelet Count 151 10^3/uL (130-400); Red Cell Dist. Width 15.7 % (11.5-14.5); White Blood Cell Count 25.9 10^3/uL (4.8-10.8)
[2024-02-22 15:38] LABS: Blood Urea Nitrogen 34 mg/dl (9-20); Calcium 6.4 mg/dl (8.4-10.2); Carbon Dioxide 23 mmol/L (22-30); Chloride 99 mmol/L (98-107); Estimated Creatinine Clearance 28 ml/min; Glucose 125 mg/dl (70-99); Magnesium 1.5 mg/dl (1.6-2.3); Potassium 3.5 mmol/L (3.5-5.1); Sodium 133 mmol/L (135-145); eGFR 25.09
[2024-02-22 16:07] LABS: Lactic Acid 3.6 mmol/L (0.7-2.0)
--- NOTE | 2024-02-22 16:10 | PTCARENOTE ---
Able to wean Levophed off- VS as documented. Dr. Thakkar updated on labs. Incont of a small amt of stool and urine. Rylie care given. Repositioned. Speech therapy in earlier and pt is to be NPO.Repositioned frequently. Bicarb gtt infusing via R arm IV
site. Call cohen in reach. Son at the bedside.
[2024-02-22] MEDS: HEPARIN 5000 UNITS SC (17:25)
--- NOTE | 2024-02-22 17:30 | PTCARENOTE ---
Temp 101.2 Ofermiv 1 gm IV hung at 1722 via L arm midline. Repostioned. Dr. Thakkar updated on 1530 labs
[2024-02-22] MEDS: MAGNESIUM SULFATE 50 IV (17:49)
--- NOTE | 2024-02-22 18:30 | PTCARENOTE ---
Restless at intervals and calling . Needs frequent repositioning as he constantly tries to get his legs oob. Turned and repositioned. Incont of a mod to saturated amt of urine. Levophed remains off. Mag rider hung 1814 after Flores completed.
[2024-02-22] MEDS: PULMICORT 0.5 MG INH (19:41)
--- NOTE | 2024-02-22 20:00 | PTCARENOTE ---
Received pt via handoff. Pt confused and restless w/ shivering. Sinus tach, afebrile w/ trace edema in LE. 97% on 4L midflow, lung sounds coarse with expiratory wheeze. Positive bowels sounds, NG Tube 66 in the RN draining greenish brown contents.
Incontinent of urine. Skin mottled and ecchymotic w/ a red sacrum. Gtts running see flowsheet. Bed alarm on.
[2024-02-22 20:20] LABS: Lactic Acid 2.7 mmol/L (0.7-2.0)
[2024-02-23] VITALS (26 sets, daily range): BP systolic 105–143; BP diastolic 59–97; BMI 31.6
--- NOTE | 2024-02-23 | SUR.OPER ---
All systems reassessed, pt remains restless. Hygiene performed after incontinent bowel movement.
[2024-02-23] MEDS: HEPARIN 5000 UNITS SC ×3 (00:48→16:38)
[2024-02-23] MEDS: ZOSYN 50 IV ×2 (00:49→05:04)
[2024-02-23] MEDS: DUONEB 3 ML INH ×3 (01:48→19:18)
[2024-02-23 05:46] LABS: Venous Blood Gas B.E. 4.1 mmol/L (-4 to +4); Venous Blood Gas HCO3 30.2 mmol/L (22-27); Venous Blood Gas O2 Sat % 85.4 %; Venous Blood Gas pCO2 51 mmHg (35-48); Venous Blood Gas pH 7.38 (7.32-7.43); Venous Blood Gas pO2 52 mmHg (30-50)
[2024-02-23 05:49] LABS: Venous Blood Gas O2 Therapy 6L/min
[2024-02-23 05:54] LABS: Hematocrit 33.6 % (39.0-52.0); Hemoglobin 11.1 g/dL (13.0-18.0); Mean Corpuscular Hgb 31.4 pg (27.0-31.0); Mean Corpuscular Volume 94.9 fL (80.0-94.0); Mean Platelet Volume 9.1 fL (7.4-10.4); Platelet Count 127 10^3/uL (130-400); Red Blood Cell Count 3.54 10^6/uL (4.70-6.10); Red Cell Dist. Width 15.4 % (11.5-14.5); White Blood Cell Count 17.2 10^3/uL (4.8-10.8)
[2024-02-23 06:19] LABS: Lactic Acid 2.6 mmol/L (0.7-2.0)
[2024-02-23 06:27] LABS: ALT (SGPT) 45 U/L (0-50); AST (SGOT) 119 U/L (17-59); Albumin 2.6 g/dl (3.5-5.0); Alkaline Phosphatase 66 U/L (38-126); Blood Urea Nitrogen 37 mg/dl (9-20); Calcium 6.7 mg/dl (8.4-10.2); Carbon Dioxide 32 mmol/L (22-30); Chloride 98 mmol/L (98-107); Estimated Creatinine Clearance 31 ml/min; Glucose 108 mg/dl (70-99); Magnesium 2.2 mg/dl (1.6-2.3); Phosphorus 5.5 mg/dl (2.5-4.5); Potassium 3.1 mmol/L (3.5-5.1); Sodium 138 mmol/L (135-145); Total Bilirubin 1.7 mg/dl (0.2-1.3); Total Protein 4.7 g/dl (6.3-8.2); eGFR 29.07
[2024-02-23] MEDS: PULMICORT 0.5 MG INH ×2 (07:19→19:18)
[2024-02-23] MEDS: CALCIUM GLUCONATE 100 IV ×2 (08:05→18:38)
[2024-02-23] MEDS: KEPPRA 500 MG IV ×2 (08:06→21:39)
[2024-02-23] MEDS: NSS (PRESERVATIVE FREE) 10 ML IV (08:06)
[2024-02-23] MEDS: PROTONIX IV 40 MG IV (08:06)
[2024-02-23] MEDS: THIAMINE INJECTION 200 MG IV (08:07)
[2024-02-23] MEDS: LIPITOR PO (08:18)
--- NOTE | 2024-02-23 08:27 | W.PN.INTV ---
Today's Communication / Plan
Recommendations
Antibiotics as per ID
Keep NGT to LIWS and trend output
If NGT output continues to be high and/or nausea/vomiting persist then would check CT abdomen/pelvis
Scheduled Reglan for today
Avoid RETAIL SALES MANAGER depressing medications as this will only increase his risk of aspiration
PT/OT
Once NGT can be safely clamped then would check GLASS BULB SILVERER evaluation prior to starting diet
Continue DuoNebs
Once he is more alert then would encourage incentive spirometer, and can also use nasal saline spray as this has shown to be of benefit in patient's with pneumonia
Patient is stable for downgrade out of ICU to telemetry. No additional recommendations at this time. [employer] Or [employer] Business Manager/Pulmonary service will now sign off. Please reconsult if there are any additional questions/concerns, or if patient's respiratory
status deteriorates.
Assessment
-
Assessment: 73-year-old male non-smoker with a past medical history of BPH with LUTS, history of orthostatic hypotension on prn midodrine, history of glioblastoma on chronic Decadron, seizure disorder, and dementia who presented from [facility] at
[place] for change in mental status, abdominal distention, chills and worsening lethargy. HPI obtained from family as well as medical records. Son says that he saw his father over this past weekend and noticed that he was slightly lethargic at
that time. He thought that maybe he was coming down with a viral illness. He has some good days and some bad days given his history of dementia. He then started to have worsening weakness and not eating/drinking as much. His urologist had
treated him for a Klebsiella UTI which resulted over the weekend. Augmentin 500 mg / 125 mg BID x 7 days were prescribed, which the patient reportedly completed. In the ER patient was febrile to 103.7 �F, tachycardic to 130,
breathing at 30 breaths/min, BP 101/59, and saturating 93% on room air. Initial labs showed leukocytosis of 24.9, creatinine 1.4, lactate 5.3, T. bili 1.8, urinalysis with +2 leukocyte esterase, >100 urine WBC and COVID antigen was negative. Blood
cultures + urine cultures were collected. CXR showed bibasilar opacities with concern for pneumonia versus pneumonitis. In the ER he was given 2.3 L of IVF NS 0.9%, overfed + Zosyn. He was initially admitted to the IMU, however due to worsening
hypotension requiring Levophed and tachypnea he was transferred to the ICU for close monitoring. [employer] Or University Business Manager services consulted for additional management/recommendations.
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
Impression:
#Acute respiratory failure with hypoxia on supplemental oxygen likely due to pneumonia in the setting of septic shock - shock state now resolved
#Septic shock due to pneumonia and UTI - shock state now resolved
#Gram-negative suni bacteremia due to Klebsiella pneumonia (likely source is UTI)
#Bibasilar opacities (L >R) likely due to pneumonia/CAP
#Abnormal urinalysis with +2 leukocyte esterase and >100 urine WBC (unable to determine if true infection versus asymptomatic bacteriuria as patient is altered); UCx positive for Klebsiella pneumonia
#Tachycardic due to sepsis - HR improved
#Nausea/vomiting - no longer vomiting or having nausea
#Leukocytosis - improving
#Anemia
#Metabolic acidosis with preserved anion gap
#TELMA - Cr improving
#Lactic acidosis � improving
#Hypomagnesemia � resolved
#Hyperbilirubinemia � stable
Plan:
- Continue with antibiotics --> ID consulted and defer ABx to them
- Initially was on Levaquin and is s/p IV vanco x1 dose on 02/21/2024; Abx then changed to Zosyn and he is now on cipro
- Follow-up cultures (blood culture from 02/21/2024 - NGTD); urine culture from 02/21/2024 is positive for Klebsiella pneumonia (resistant to ampicillin + Bactrim); collect sputum culture if patient can produce a decent sample
- Stool Cx to r/o norovirus is negative
- Collect 1 set of surveillance blood culture
- Continue with DuoNebs q6 hours with prn doses in between for breakthrough SOB or if needed for mucous expectoration
- Now off vasopressors; maintain MAP>65
- Maintain SpO2 >90-94% with supplemental oxygen and titrate down as tolerated
- prn nebulized bronchodilators - not currently bronchospastic
- Aspiration precautions
- If resting SaO2 remains <96% on room air then check ambulatory pulse oximetry prior to discharge
- Antiemetics as needed; given he continues to have increased output from NGT, start scheduled reglan today
- Trend QTc (goal <500ms) (QTc: 489ms via EKG on 02/21/2024)
- If output continues to be high or if nausea/vomiting persists past today then would check CT abd/pelvis
- Now off bicarb gtt given serum HCO3 level now >30
- Continue to trend lactate until <2mmol/L
- Blood gas this morning shows adequate pH at 7.38 with pCO2 51; no need to continue trending blood gases at this point
- Trend LFTs and T. bili
- Replete electrolytes with K>4, Mg>2
- Maintain euglycemia with goal BG 140-180
- Trend H/H and transfuse if needed to keep Hb>7g/dL; keep plt>20k, unless there is concern for bleeding then keep plt>50k
- Encourage incentive spirometer use 10x per hour for at least 4 hrs a day
- PT/OT
- Once NGT is clamped with no nausea/vomiting and stable abdominal exam, then can assess safety of PO diet with GLASS BULB SILVERER evaluation
- DVT ppx: HSQ
Patient is stable for downgrade out of ICU to telemetry. No additional recommendations at this time. College Or University Business Manager/Pulmonary service will now sign off. Thank you for allowing us to be involved in the care of this patient. Please reconsult if there
are any additional questions/concerns, or if patient's respiratory status deteriorates.
Data:
CXR 02/21/2024: There are bibasilar opacities which are new from prior and may represent pneumonia or pneumonitis in the sequelae of aspiration.
CXR 02/22/2024: There is pleural parenchymal airspace disease at the left lung base consistent with small pleural effusion with underlying pneumonia versus atelectasis
Total time spent today was 78 minutes for this encounter. Time includes reviewing laboratory test/imaging results, reviewing pertinent medical records, obtaining and reviewing medical history, performing an appropriate exam, ordering medications,
tests and procedures. Time also includes documentation of this encounter, coordinating patient care and communicating with other healthcare professionals. Total time does not include separately billed tests performed on this date of service.
Subjective Dataa
Subjective Data
Date of Service:
Date of Service: February 23, 2024
Chief Complaint: College Or University Business Manager Follow Up
Subjective:
Patient was seen and evaluated this morning. Been off vasopressors since yesterday. NGT to low intermittent wall suction with brown output - 400cc since last night at 7PM. Patient's son, Marcelo, and daughter, Lily, at bedside and all questions were
answered. Patient lethargic however easily arousable to voice and answers my questions appropriately. Currently, heart rate 103, BP 125/76 and saturating 98% on 2 L/min nasal cannula. He denies chest pain, NICHOLSON, abdominal pain, fevers or chills.
Afebrile overnight with last fever yesterday afternoon at 4:30 PM to 101.2 �F.
Review of Systems
General: Other (Negative unless mentioned above)
Objective Data
Data Reviewed
Vital Signs / I&O / Oxygen:
Vital Signs
Temp Pulse Resp BP Pulse Ox
98.2 F 119 23 122/77 96
02/23/24 07:48 02/23/24 07:22 02/23/24 07:22 02/23/24 05:30 02/23/24 07:22
Intake and Output
02/22/24 02/23/24 02/24/24
06:59 06:59 06:59
Intake Total 847.5 / 992.5 2685.1 / 2685.1
Output Total 1000 / 1000
Balance 847.5 / 992.5 1685.1 / 1685.1
SaO2 96
Nasal Cannula flow liters per 3
minute
Physical Exam
General: Respiratory Distress (negative), Comfortable, Chills (negative) and Sweats (negative)
HEENT: Normocephalic and Anicteric
Cardiovascular: S1-S2 and Peripheral Edema (negative)
Respiratory: Wheeze (negative), Crackles (Bilaterally), Rhonchi (negative) and Non-Labored Respirations
GI: Soft, Distended (Abdominal obesity), Non Tender, Normal Bowel Sounds and NG Tube (on LIWS with brown fluid seen in canister)
Neurology: Tremors (negative) and Lethargic (Easily arousable to voice and tactile stimulation and answering my questions appropriately)
Skin: Warm, Dry, Cyanosis (negative) and Jaundice (negative)
Labs/Micro/Reports
Lab Data
02/23/24 05:29
02/23/24 05:29
Microbiology
02/21/24 14:27 Blood/Venous Blood Culture - Preliminary
Klebsiella pneumoniae
02/21/24 14:27 Blood/Venous Gram Stain - Preliminary
02/21/24 14:41 Urine Urine Culture - Final
Klebsiella pneumoniae
02/21/24 21:47 Nose MRSA Screen - Final
No Methicillin Resistant Staphylococcus aureus isolated.
02/21/24 14:27 Blood/Venous Blood Culture - Preliminary
No Growth in 24 hours- Final report to follow
02/21/24 21:46 Feces/Stool - Final
Negative for Norovirus GI and GII.
02/21/24 14:27 Nasal Swab Influenza Types A & B (GARRETT) - Final
Negative for Influenza A & B, NAAT
Negative results must be combined with clinical observations
and patient history.
Nucleic Acid Amplification test (NAAT)performed on the
[employer] ID NOW platform.
--- NOTE | 2024-02-23 08:52 | W.PN.HOSP.TC ---
Addendum entered and electronically signed by Vance Trejo MD 02/23/24 22:11:
Attending Addendum-
I saw and evaluated the patient. I reviewed the resident�s note and agree with findings and plan as documented in the resident�s note. Sub: much more alert today. Patient is poor historian due to dementia. Seen with son and daughter present.
febrile in last 24 hours. Full 12 point ROS reviewed and negative except as documented Exam- vitals reviewed in EMR GEN-alert answering questions HEENT- NG tube in place heart RRR lungs crackles at bases abd soft, less distended BS NT - acuna in
place LE no edema
# Septic Shock secondary to UTI/Prostatitis
- improving
- downgrade to tele
- DC levophed
- ID c/s appreciated
- abx changed from zosyn+vanco->levaquin->cefepime+azithro-> zosyn->cipro x 14 days
- covid and flu neg
- blood cx pos for K pnemo sensi pending Urine cx pos Klebsiella sensi resulted
- repeat blood cx NGTD
# TELMA
- prerenal
- improving
- repeat BMP in am
# Metabolic Acidosis
- resolved
- from septic shock
- DC bicarb gtt
# Acute Hypoxemic Respiratory Failure
- on MF 2L
- wean o2 for sats >90%
# Functional Ileus
- resolved
- NGT on 02/21
- hopefully dc NGT today as abd exam improved
- check obs series
- c/s speech for eval
# Hypocalcemia
- replete
# Hypomagnesemia
- resolved
# Hypokalemia
- replete
# GBM
- cont decadron
# HLD
- cont atorvastatin
# Acute Delirium on Dementia
- resolving
- from sepsis
- hopeful to get back to baseline once infection resolves
# Seizure
- cont keppra
Code FULL d/w POA
Dispo from [facility]
Time spent coordinating care, review of plan of care with resident, personally reviewed records in EMR, med rec, consults, notes, labs, radiology, d/w nursing CC and family � 59mins
Original Note:
Today's Communication/Plan
-
Continue to monitor mental status and baseline. Continue patient on Abx. May downgrade to IMU if patient continues to improve.
Assessment / Plan
Assessment / Plan
Assessment:
73 yo male presents to the ED due to altered mental mental status, cough, vomiting, fever, as well as increased lethargy. Patient was found to be septic and given fluids and started on antibiotics in the ED. Patient's condition improved after
initial treatment however he still remains hypotensive. Was switched to ICU level care over night due to continued hypotension even with fluids. Due to continued hypotension, was started on pressors. Currently patient is off of pressors and his
blood pressure has improved. He is still on antibiotics and an NG tube was added yesterday due to vomiting.
Plan:
#Septic Shock due to probably aspiration pneumonia causing acute delirium
- Given 4L NSS bolus yesterday but remained hypotensive - upgraded to ICU last night and started on Levophed
- Weaned off of Levophed and continues to be normotensive
- prelim bcx showed gram neg bacili
- Fever has now resolved
- Lactate trending down (2.7-> 2.6) continue trend
- covid and flu neg
- Negative Norovirus
- Metabolic acidosis, Probable to increased Lactate, has now resolved
- Switched to NSS
- CXR (02/21)- pleural parenchymal airspace disease at the left lung base consistent with small pleural effusion with underlying pneumonia versus atelectasis
- Most likely due to aspiration
- Zosyn switched Ancef 2g
#TELMA
- Most likely pre-renal in nature
- Will continue to give fluids
- Creatinine worsening (2.1 -> 2.3) Continue Fluid management
- Continue monitoring BMP
#Hypocalcemia
-Probable to Worsening kidney function
-Repleting calcium
#Hypokalemia
-Repleted Potassium
#Hypomagnesemia
-Metabolic derangement was most likely due to sepsis
-Repleted
# Hyperlipidemia
- cont atorvastatin
#Hyperphosphatemia
-Continue to monitor, may be due to TELMA
# Dementia
- acute delirium from sepsis with underlying dementia
- According to son, his baseline is better than current, hopefully returns to baseline as infection resolves
# Seizure prevention from previous brain surgery
- Cont Levetiracetam
Full Code
DVT Prophylaxis: Lovenox
Anticipated Discharge: 24 - 48 hours
Subjective/Interval History
-
Date of Service: February 23, 2024
Patient continues to look better. Nurse did say he was a bit agitated and continues to slide down his bed. Son would like some information about what he can let the care facility know about preventing UTIs in the future as well.
Objective Data
-
Labs:
Laboratory Results
02/23/24
05:29
WBC 17.2 H
Hgb 11.1 L
Hct 33.6 L
Plt Count 127 L
Sodium 138
Potassium 3.1 L
Chloride 98
Carbon Dioxide 32 H
BUN 37 H
Creatinine 2.3 H
Glucose 108 H
Calcium 6.7 L*
Total Bilirubin 1.7 H
AST 119 H
ALT 45
Alkaline Phosphatase 66
Vital Signs:
Vital Signs
Temp Pulse Resp BP Pulse Ox
98.2 F 119 23 122/77 96
02/23/24 07:48 02/23/24 07:22 02/23/24 07:22 02/23/24 05:30 02/23/24 07:22
I&O
02/22/24 02/23/24 02/24/24
06:59 06:59 06:59
Intake Total 847.5 / 992.5 2685.1 / 2685.1
Output Total 1000 / 1000
Balance 847.5 / 992.5 1685.1 / 1685.1
Review of Systems
-
Unable to obtain full review of systems at this time due to: Dementia
History Source: Family
Constitutional: Reports Sleep Disturbance; Denies Fever
EENT: Reports No Symptoms Reported
Respiratory: Reports Cough and Wheezing
Cardiac: Reports No Symptoms
Abdomen/GI: Reports No Symptoms
Breast: Reports No Symptoms
Genitourinary: Reports No Symptoms
Musculoskeletal: Reports No Symptoms
Neuro: Reports No Symptoms
Endocrine: Reports No Symptoms
Hematologic / Lymphatic: Reports No Symptoms and Bruising
Allergy / Immunology: Reports No Symptoms
Physical Exam
-
General: Well Developed and No Apparent Distress
HEENT: Normocephalic and Atraumatic
Respiratory: Wheezes and Non Labored Respirations
Cardiac: Regular Rhythm, S1/S2 and Tachycardic
GI: Soft, Nontender, Nondistended and Other (NG Tube in place draining dark colored fluid)
Musculoskeletal: No Clubbing, No Cyanosis and No Edema
Skin: Warm, Dry and Other (Ecchymosis growing larger 4-5 cm on bilateral arms)
Neuro: Awake and Alert
Psych: Calm and Apparent Dementia
Data Reviewed
-
Diagnostic Radiology: Report Reviewed by me, Discussed with Physician, Discussed with Nurse, Discussed with Patient and Discussed with Family
Labs: Labs Reviewed by me, Discussed with Physician, Discussed with Nurse, Discussed with Patient and Discussed with Family
--- NOTE | 2024-02-23 09:09 | W.PN.ID1 ---
Date of Service
Date of Service: February 23, 2024
Today's Communication
Ts need to be a consistent route to make a meaningful fever curve - now switched to oral
- CXR with bibasilar changes - given recent vomiting possible aspiration pneumonitis vs atelectasis, unlikely pneumonia at this point in his clinical course
- h/o recurrent UTIs in a male, without known stones suggests prostatitis
- renal US 11/20 no stones
- start ciprofloxacin 250 mg PO BID plan 14 day total course of effective rx: 02/20-03/05
- follow renal function and if CrCl >50 (his recent baseline) will require dose adjustment
- recheck QTc in the AM
Assessment / Plan
Likely Prostatitis - UTI due to Klebsiella
Bacteremia - due to Klebsiella
Probable aspiration pneumonitis vs atelectasis vs pneumonia
Seizure Disorder on Keppra
TELMA - improving
- Ts need to be a consistent route to make a meaningful fever curve - now switched to oral
- urinary source
- CXR with bibasilar changes - given recent vomiting possible aspiration pneumonitis vs atelectasis, unlikely pneumonia at this point in his clinical course
- repeat blood cultures for this gram negative with likely source control not needed in my opinion
- post void residual
- h/o recurrent UTIs in a male, without known stones suggests prostatitis
- renal US 11/20 no stones
- start ciprofloxacin 250 mg PO BID plan 14 day total course of effective rx: 02/20-03/05
- follow renal function and if CrCl >50 (his recent baseline) will require dose adjustment
- recheck QTc in the AM
follow up with
Chief Complaint
-: Clinical Sepsis and Bacteremia
Subjective / Review of Systems
switched to oral Ts and fever cure has improved
weaned off of pressors yesterday afternoon
shivering overnight
ngt draining greenish brown contents
red sacrum
some agitation
not coughing much
family report this is 3rd uti in 3 months
Vital Signs / Physical Exam
Vital Signs
Vital Signs
Temp Pulse Resp BP Pulse Ox
98.2 F 119 23 122/77 96
02/23/24 07:48 02/23/24 07:22 02/23/24 07:22 02/23/24 05:30 02/23/24 07:22
Physical Exam
Constitutional: No Acute Distress and Chronically Ill
Cardiovascular: Regular Rate and S1/S2; Negative Murmur or Rub
Pulmonary: Clear and Symmetric; Negative Wheezes or Rales
Gastrointestinal: Soft, Non Tender, Non Distended and Normal Bowel Sounds
Genito-Urinary: Negative Suprapubic Tenderness
Skin: Warm and Dry; Negative Rash or Jaundice
Objective Data
Lab Data
Lab Results
02/23/24 05:29
02/23/24 05:29
PT 18.6 Sec (11.4-14.6) H 02/22/24 05:23
INR 1.53 02/22/24 05:23
APTT 40.1 Sec (23.4-35.0) H 02/22/24 05:23
Estimated Creat Clear 31 ml/min 02/23/24 05:29
Lactic Acid 2.6 mmol/L (0.7-2.0) H 02/23/24 05:29
Total Bilirubin 1.7 mg/dl (0.2-1.3) H 02/23/24 05:29
AST 119 U/L (17-59) H 02/23/24 05:29
ALT 45 U/L (0-50) 02/23/24 05:29
Alkaline Phosphatase 66 U/L (38-126) 02/23/24 05:29
Most recent labs reviewed.
Urine Culture Final 02/23/24
CC: Greater than 100,000 CFU/ML Klebsiella pneumoniae
Organism 1 Klebsiella pneumoniae
1. Klebsiella pneumoniae
M.I.C. RX
--------- ---
Amoxicillin/Potas. Clavulanate <=8/4 S
Ampicillin >16 R
Ampicillin/Sulbactam <=4/2 S
Aztreonam <=4 S
Cefazolin <=2 S
Ertapenem <=0.5 S
Ciprofloxacin <=0.25 S
Gentamicin <=2 S
Meropenem <=1 S
Nitrofurantoin-Urine Only <=32 S
Piperacillin/Tazobactam <=8 S
Tetracycline <=4 S
Tobramycin <=2 S
Trimethoprim/Sulfamethoxazole >2/38 R
Micro Results:
02/21/24 14:27 Blood Culture - Preliminary
Blood/Venous Klebsiella pneumoniae
Gram Stain - Preliminary
02/21/24 14:41 Urine Culture - Final
Urine Klebsiella pneumoniae
02/21/24 21:47 MRSA Screen - Final
Nose No Methicillin Resistant Staphylococcus aureus isolated.
02/21/24 14:27 Blood Culture - Preliminary
Blood/Venous No Growth in 24 hours- Final report to follow
02/21/24 21:46 - Final
Feces/Stool Negative for Norovirus GI and GII.
02/21/24 14:27 Influenza Types A & B (GARRETT) - Final
Nasal Swab Negative for Influenza A & B, NAAT
Negative results must be combined with clinical observations
and patient history.
Nucleic Acid Amplification test (NAAT)performed on the
[employer] platform.
--- NOTE | 2024-02-23 10:53 | PTOTSP ---
ST HOLD NOTE
Chart reviewed. Pt reportedly started vomiting yesterday. NG tube placed. Pt with ongoing brown drainage throughout yesterday and today. Spoke with bit grinder. Will hold on PO intake trials today and keep pt STRICT NPO at this time. CABLE ENGINEER to
follow-up with dysphagia re-assessment once pt is cleared for PO intake.
[2024-02-23] MEDS: LOW STRENGTH ASPIRIN PO (11:01)
[2024-02-23] MEDS: DECADRON PO (11:01)
--- NOTE | 2024-02-23 12:00 | PTCARENOTE ---
Pt confused with garbled speech. Talks very little, with one or two word responses. Sinus tach. SpO2 97-99% on 2L NC. Appears to be orthopneic. Audible expiratory wheeze while laying flat. NGT to low intermittent suction with brown output.
Small green/brown BM today. Frequently incontinent of urine. Difficult to check post void residual d/t incontinence. Bladder scan 200 around 1030am and 240mls around 1130am after noted to have wet brief. All other assessments unchanged.
[2024-02-23] MEDS: KCL 270 MEQ IV ×2 (12:04→18:38)
[2024-02-23] MEDS: REGLAN 10 MG IV ×2 (12:04→18:11)
[2024-02-23] MEDS: CIPRO 400 MG 200 IV (12:04)
--- NOTE | 2024-02-23 12:26 | CM ---
CM following re: discharge planning.
Discussed in Rounds, reviewed pt's chart, met with pt and pt's son Marcelo and pt's daughter at bedside.
Per son, pt has been living at [facility] since August of this year, ambulates with a walker at baseline, has a wheelchair to use for a long distance. Per son, pt's is a patient at and she might be on hospice care.
Emotional support offered and provided. Pt's son stated he feels that his father will be able to return back to [facility] with [facility] outpatient in-house rehab. Also, pt's son stated if his father will need a short term rehab
he agrees and he preferred [facility] or [facility].
PT and OT evaluations pending
D/C plan: return back to the [facility] vs preferred SNF if recommended b PT/OT.
CM will follow with discharge plan updates as hospitalization processes
[2024-02-23] MEDS: DUONEB INH (14:37)
--- NOTE | 2024-02-23 14:53 | PTCARENOTE ---
Pt pulled NGT for second time today. Not replaced at this time. Transferred to xray for obstruction series.
[2024-02-23 17:22] LABS: Ionized Calcium 0.95 mMOL/L (1.15-1.33)
[2024-02-23 17:28] LABS: Lactic Acid 1.5 mmol/L (0.7-2.0)
--- NOTE | 2024-02-23 17:30 | PTCARENOTE ---
Attempted but unable to get blood cultures.
[2024-02-23 17:38] LABS: Blood Urea Nitrogen 36 mg/dl (9-20); Carbon Dioxide 31 mmol/L (22-30); Chloride 101 mmol/L (98-107); Estimated Creatinine Clearance 38 ml/min; Glucose 112 mg/dl (70-99); Sodium 137 mmol/L (135-145); eGFR 36.56
--- NOTE | 2024-02-23 20:00 | PTCARENOTE ---
Received pt via handoff. Pt confused with garbled speech, afebrile and able to AHUMADA. NSR with PAC's, trace edema in LE. 98% 4L midflow, lung sounds diminished with expiratory wheeze. Positive bowel sounds, stomach round and obese. Purewick in place
draining clear yellow urine. Gtts running see flowsheet. Bed alarm on.
[2024-02-24] VITALS (11 sets, daily range): BP systolic 114–152; BP diastolic 60–94; PULSE 93–99; O2SAT 95; BMI 31.6
[2024-02-24] MEDS: CIPRO 400 MG 200 IV ×3 (00:20→23:33)
[2024-02-24] MEDS: HEPARIN 5000 UNITS SC ×2 (00:20→08:38)
[2024-02-24] MEDS: REGLAN 10 MG IV (00:20)
[2024-02-24] MEDS: DUONEB 3 ML INH ×4 (01:45→19:14)
[2024-02-24 04:10] LABS: Hematocrit 32.5 % (39.0-52.0); Hemoglobin 10.7 g/dL (13.0-18.0); Mean Corp Hgb Conc. 32.9 g/dL (33.0-37.0); Mean Corpuscular Hgb 31.8 pg (27.0-31.0); Mean Corpuscular Volume 96.7 fL (80.0-94.0); Mean Platelet Volume 9.4 fL (7.4-10.4); Platelet Count 95 10^3/uL (130-400); Red Blood Cell Count 3.36 10^6/uL (4.70-6.10); Red Cell Dist. Width 15.6 % (11.5-14.5); White Blood Cell Count 13.1 10^3/uL (4.8-10.8)
[2024-02-24 04:56] LABS: Blood Urea Nitrogen 35 mg/dl (9-20); Calcium 7.5 mg/dl (8.4-10.2); Carbon Dioxide 29 mmol/L (22-30); Chloride 104 mmol/L (98-107); Estimated Creatinine Clearance 45 ml/min; Glucose 96 mg/dl (70-99); Potassium 3.5 mmol/L (3.5-5.1); Sodium 139 mmol/L (135-145); eGFR 44.93
--- NOTE | 2024-02-24 07:15 | PTCARENOTE ---
Received pt from previous RN. Pt pleasantly confused with slightly garbled speech,AOx self and birthday month and year, afebrile and able to AHUMADA. Tele showing NSR with PAC's, trace edema in LE. Pt was weaned by RT to 2L nasal cannula, sat 97% at
this time, lung sounds diminished with expiratory wheeze. Positive bowel sounds, stomach round and obese. Incontinent loose green BM. Purewick in place draining clear yellow urine. Family in room, son and grandson, nursing update provided. Bed alarm
armed, safe environment maintained.
--- NOTE | 2024-02-24 07:29 | W.PN.HOSP.TC ---
Addendum entered and electronically signed by Vance Trejo MD 02/24/24 21:45:
Attending Addendum-
I saw and evaluated the patient. I reviewed the resident�s note and agree with findings and plan as documented in the resident�s note. Sub: more confused overnight and this am. Pulling at lines. removed DHT. Patient is poor historian due to
dementia. Full 12 point ROS reviewed and negative except as documented Exam- vitals reviewed in EMR GEN-NAD confused heart RRR lungs crackles at bases abd soft, less distended BS NT - acuna in place LE no edema
# Septic Shock secondary to UTI/Prostatitis
- improving
- downgraded to tele but still in ICU
- off levophed
- ID c/s appreciated
- cont ciprofloxacin until 03/05
- covid and flu neg
- blood and urine cx pos for K pnemo- sensi resulted
- repeat blood cx NGTD
# TELMA
- prerenal
- improving
- repeat BMP in am
# Metabolic Acidosis
- resolved
- from septic shock
# Acute Hypoxemic Respiratory Failure
- weaned to RA
# Dysphagia
- NPO per speech recs
- pulled out DHT
- replace DHT start TF when able
- requiring restraints to keep DHT in
- start standing risperdal
# Hypocalcemia
- replete
# Hypomagnesemia
- resolved
# Hypokalemia
- replete
- recheck BMP in am
# GBM
- cont decadron
# HLD
- cont atorvastatin
# Acute Delirium on Dementia
- worsening
- place om restraints as danger to himself
- start risperdal
# Seizure
- cont keppra
Code FULL d/w POA
Dispo from [facility]
Time spent coordinating care, review of plan of care with resident, personally reviewed records in EMR, med rec, consults, notes, labs, radiology, d/w nursing CC and family � 62 mins
Original Note:
Today's Communication/Plan
-
Patient to continue on IV antibiotics. Will continue monitoring breathing as well as feeding/swallowing. Will try to get patient to ambulate more to prevent worsening ileus.
Assessment / Plan
Assessment / Plan
Assessment:
73 yo male presents to the ED due to altered mental mental status, cough, vomiting, fever, as well as increased lethargy. Patient was found to be septic and given fluids and started on antibiotics in the ED. Patient's condition improved after
initial treatment however he still remains hypotensive. Was switched to ICU level care over night due to continued hypotension even with fluids. Due to continued hypotension, was started on pressors. Currently patient is off of pressors and his
blood pressure has improved. He is still on antibiotics and an NG tube due to his incidence of vomiting. Patient remains stable but occasionally gets fidgety most likely due to his dementia.
Plan:
#Septic Shock due to probably aspiration pneumonia causing acute delirium
- Given 4L NSS bolus yesterday but remained hypotensive - upgraded to ICU last night and started on Levophed
- Weaned off of Levophed and continues to be normotensive
- Gram neg bacili grown (Klebsiella)
- Fever has now resolved
- Lactate 1.5, resolved
- covid and flu neg
- Negative Norovirus
- Metabolic acidosis, Probable to increased Lactate, has now resolved
- Switched to NSS
- CXR (02/21)- pleural parenchymal airspace disease at the left lung base consistent with small pleural effusion with underlying pneumonia versus atelectasis
- Most likely due to aspiration
- Patient now on Cipro IV
- Speech saw him today and recommends strict NPO and will reassess over the weekend
- DHT ordered to help in nutrition
- Engineering Technical Specialist will help with tube feed recommendations
#TELMA
- Most likely pre-renal in nature
- Will continue to give fluids
- Resolving
- Creatinine Improving (1.9-1.6)Continue Fluid management
- Continue monitoring BMP
- Bicarb drip was D/Cd
#Acute Hypoxemic Resp Failure
-on 2L O2, 98% Sat
-Resolving, try to wean to room air
-Chest X-ray ordered to check for worsening breathing
#Thrombocytopenia
-Platelet count 95
-Continue to monitor for further bleeding
-Possibly due to Heparin, discontinued Heparin and started on SCDs for DVT prophylaxis
#Functional Ileus
- Resolving
- CR Obstruct Series- No evidence for bowel obstruction or free intraperitoneal air.
- Patient took out NGT by himself overnight
- Get patient to ambulate and move around
- Last bowel movement on 02/21
#Hypocalcemia
-Probable to Worsening kidney function
-Repleting calcium
#Hypokalemia
-Repleted Potassium
-now 3.5, replete as necessary
#Hypomagnesemia
-Metabolic derangement was most likely due to sepsis
-Repleted
# Hyperlipidemia
- cont atorvastatin
#Hyperphosphatemia
-Continue to monitor, may be due to TELMA
# Dementia
- acute delirium from sepsis with underlying dementia
- According to son, he is returning to baseline
- Patient given mittens to help prevent him from pulling his nasogastric tube
- Started on Risperdal to help manage his symptoms
- Spoke with son and he was okay with the decision
# Seizure prevention from previous brain surgery
- Cont Levetiracetam
Full Code
DVT Prophylaxis: SCDs
Anticipated Discharge: 24 - 48 hours
Subjective/Interval History
-
Date of Service: February 24, 2024
Patient remains apparently demented but looks more aware, alert and responsive. Nurse mentioned that he continues to be fidgety overnight but no further complaints
Objective Data
-
Labs:
Laboratory Results
02/24/24
04:01
WBC 13.1 H
Hgb 10.7 L
Hct 32.5 L
Plt Count 95 L D
Sodium 139
Potassium 3.5
Chloride 104
Carbon Dioxide 29
BUN 35 H
Creatinine 1.6 H
Glucose 96
Calcium 7.5 L
Vital Signs:
Vital Signs
Temp Pulse Resp BP Pulse Ox
98.1 F 131 22 129/71 90
02/23/24 23:43 02/24/24 06:00 02/24/24 06:00 02/24/24 04:00 02/24/24 02:00
I&O
02/23/24 02/24/24 02/25/24
06:59 06:59 06:59
Intake Total 2685.1 / 2685.1 1050 / 1050
Output Total 1000 / 1000 451 / 451
Balance 1685.1 / 1685.1 599 / 599
Review of Systems
-
Unable to obtain full review of systems at this time due to: Dementia
History Source: Family
Constitutional: Reports No Symptoms
EENT: Reports No Symptoms Reported
Respiratory: Denies Cough or Trouble Breathing
Cardiac: Denies Chest Pain, Diaphoresis or Palpitations
Abdomen/GI: Reports No Symptoms
Genitourinary: Reports No Symptoms
Musculoskeletal: Reports No Symptoms
Skin: Reports No Symptoms
Neuro: Reports No Symptoms
Endocrine: Reports No Symptoms
Hematologic / Lymphatic: Reports No Symptoms
Allergy / Immunology: Reports No Symptoms
Physical Exam
-
General: Well Nourished and No Apparent Distress
HEENT: Normocephalic and Atraumatic
Respiratory: Wheezes and Crackles
Cardiac: Regular Rhythm, S1/S2 and Tachycardic
GI: Soft and Nontender
Musculoskeletal: No Clubbing, No Cyanosis and No Edema
Skin: Other (Large ecchymosis on bilateral arms)
Neuro: Awake, Alert, Oriented and AO x 3
Psych: Confused and Apparent Dementia
Data Reviewed
-
Diagnostic Radiology: Report Reviewed by me, Discussed with Physician, Discussed with Nurse, Discussed with Patient and Discussed with Family
Labs: Labs Reviewed by me, Discussed with Physician, Discussed with Nurse, Discussed with Patient and Discussed with Family
[2024-02-24] MEDS: PULMICORT 0.5 MG INH ×2 (07:34→19:15)
[2024-02-24] MEDS: DECADRON PO (07:53)
[2024-02-24] MEDS: LIPITOR PO (07:53)
[2024-02-24] MEDS: LOW STRENGTH ASPIRIN PO (07:53)
[2024-02-24 08:15] LABS: Phosphorus 2.9 mg/dl (2.5-4.5)
[2024-02-24] MEDS: NSS (PRESERVATIVE FREE) 10 ML IV (08:37)
[2024-02-24] MEDS: KEPPRA 500 MG IV ×2 (08:37→19:54)
[2024-02-24] MEDS: THIAMINE INJECTION 200 MG IV (08:37)
[2024-02-24] MEDS: PROTONIX IV 40 MG IV (08:37)
--- NOTE | 2024-02-24 08:53 | W.PN.ID1 ---
Date of Service
Date of Service: February 24, 2024
Today's Communication
- c/w ciprofloxacin IV when able to take oral can be switched to pills to complete a course of effective rx: 02/20-03/05
follow up with his urologist Dr Piper
Assessment / Plan
Likely Prostatitis - UTI due to Klebsiella
Bacteremia - due to Klebsiella
Probable aspiration pneumonitis vs atelectasis vs pneumonia
Seizure Disorder on Keppra
TELMA - improving
- h/o recurrent UTIs in a male, without known stones suggests prostatitis
- renal US 11/20 no stones
- c/w ciprofloxacin IV when able to take oral can be switched to pills to complete a 14 day total course of effective rx: 02/20-03/05
- recheck QTc - remains acceptable 460
follow up with his urologist Dr Piper
Chief Complaint
-: Bacteremia
Subjective / Review of Systems
no further fevers
bp stable
pt removed ngt x2
Vital Signs / Physical Exam
Vital Signs
Vital Signs
Temp Pulse Resp BP Pulse Ox
98.6 F 125 24 129/71 97
02/24/24 07:39 02/24/24 07:45 02/24/24 07:45 02/24/24 04:00 02/24/24 07:45
Physical Exam
Constitutional: No Acute Distress and Chronically Ill
Cardiovascular: Regular Rate and S1/S2; Negative Murmur or Rub
Pulmonary: Clear and Symmetric; Negative Wheezes or Rales
Gastrointestinal: Soft, Non Tender, Non Distended and Normal Bowel Sounds
Skin: Warm and Dry; Negative Rash or Jaundice
Objective Data
Lab Data
Lab Results
02/24/24 04:01
02/24/24 04:01
PT 18.6 Sec (11.4-14.6) H 02/22/24 05:23
INR 1.53 02/22/24 05:23
APTT 40.1 Sec (23.4-35.0) H 02/22/24 05:23
Estimated Creat Clear 45 ml/min 02/24/24 04:01
Lactic Acid 1.5 mmol/L (0.7-2.0) 02/23/24 17:06
Total Bilirubin 1.7 mg/dl (0.2-1.3) H 02/23/24 05:29
AST 119 U/L (17-59) H 02/23/24 05:29
ALT 45 U/L (0-50) 02/23/24 05:29
Alkaline Phosphatase 66 U/L (38-126) 02/23/24 05:29
Most recent labs reviewed.
Micro Results:
02/21/24 14:27 Blood Culture - Final
Blood/Venous Klebsiella pneumoniae
Gram Stain - Final
02/21/24 14:27 Blood Culture - Preliminary
Blood/Venous No Growth in 48 hours- Final report to follow
02/21/24 14:41 Urine Culture - Final
Urine Klebsiella pneumoniae
02/21/24 21:47 MRSA Screen - Final
Nose No Methicillin Resistant Staphylococcus aureus isolated.
02/21/24 21:46 - Final
Feces/Stool Negative for Norovirus GI and GII.
02/21/24 14:27 Influenza Types A & B (GARRETT) - Final
Nasal Swab Negative for Influenza A & B, NAAT
Negative results must be combined with clinical observations
and patient history.
Nucleic Acid Amplification test (NAAT)performed on the
[employer] platform.
--- NOTE | 2024-02-24 13:05 | CM ---
CM following re: discharge planning.
Reviewed pt's chart, met with pt. Pt's son and daughter at bedside.
PT and OT evaluations noted. Both pt and his family are aware, expressed their agreement. [facility] and [facility] preferred. A referral to [facility] and [facility] made. Awaiting for determination.
D/C plan: preferred SNF: [facility] or [facility].
CM will follow to assist pt with discharge to a preferred SNF.
--- NOTE | 2024-02-24 14:46 | PTCARENOTE ---
DHT placed right nare at 75 cm. Xray ordered to confirm placement.
--- NOTE | 2024-02-24 16:54 | PTCARENOTE ---
Addendum entered by Anaid Reynolds RN 02/24/24 16:58:
Sonia Zheng and Bijan made aware.
Original Note:
Pt removed bl mitts and pulled out Dobbhoff tube.
[2024-02-24] MEDS: RISPERDAL M-TAB (ORALLY DISINTEGRATING) 0.25 MG PO (17:19)
--- NOTE | 2024-02-24 17:24 | PTCARENOTE ---
Dobbhoff reinserted to right nares at 75 cm.BL soft restraints applied in addition to mitts as ordered.Abd x ray ordered.
[2024-02-24] MEDS: RISPERDAL ORAL SOLUTION 0.25 MG TUBE (19:55)
--- NOTE | 2024-02-24 21:24 | PTCARENOTE ---
patient received from daysgaft, resting comfortably, restraints in place, patient calm and cooperative. patient has barking cough, unable to clear secretions with yankour, patient swallows secretions. pt remains on RA at 96%
[2024-02-24] MEDS: MYLICON 80 MG TUBE (22:30)
[2024-02-25] VITALS (10 sets, daily range): BP systolic 122–171; BP diastolic 79–110; BMI 31.7
[2024-02-25] MEDS: DUONEB 3 ML INH ×4 (03:25→19:50)
[2024-02-25 04:52] LABS: % Basophils 0.3 % (0-2); % Eosinophils 1.7 % (0-6); % Immature Granulocytes 0.6 % (0-0.5); % Lymphocytes 6.1 % (20.5-51.1); % Monocytes 9.3 % (1.7-9.3); Absolute Eosinophils 0.2 10^3/uL (0-0.7); Absolute Immature Granulocytes 0.1 10^3/uL (0-0.05); Absolute Lymphocytes 0.5 10^3/uL (1.2-3.4); Absolute Monocytes 0.8 10^3/uL (0.1-0.6); Absolute Neutrophils 7.2 10^3/uL (1.4-6.5); Hemoglobin 12.2 g/dL (13.0-18.0); Mean Corp Hgb Conc. 32.1 g/dL (33.0-37.0); Mean Corpuscular Hgb 30.6 pg (27.0-31.0); Mean Corpuscular Volume 95.2 fL (80.0-94.0); Mean Platelet Volume 9.4 fL (7.4-10.4); Nucleated Red Blood Cells % 0 % (-); Platelet Count 126 10^3/uL (130-400); Red Blood Cell Count 3.99 10^6/uL (4.70-6.10); Red Cell Dist. Width 15.6 % (11.5-14.5); White Blood Cell Count 8.7 10^3/uL (4.8-10.8)
[2024-02-25 04:55] LABS: ALT (SGPT) 55 U/L (0-50); AST (SGOT) 65 U/L (17-59); Alkaline Phosphatase 89 U/L (38-126); Blood Urea Nitrogen 35 mg/dl (9-20); Calcium 8.1 mg/dl (8.4-10.2); Carbon Dioxide 28 mmol/L (22-30); Chloride 106 mmol/L (98-107); Estimated Creatinine Clearance 55 ml/min; Glucose 92 mg/dl (70-99); Potassium 3.5 mmol/L (3.5-5.1); Sodium 141 mmol/L (135-145); Total Bilirubin 1.1 mg/dl (0.2-1.3); Total Protein 5.4 g/dl (6.3-8.2); eGFR 57.65
[2024-02-25] MEDS: PULMICORT 0.5 MG INH ×2 (07:17→19:49)
--- NOTE | 2024-02-25 08:00 | PTCARENOTE ---
Pt rec'd from night RN, remains stable on tele, room air sat 95%. Mitts and restraints in place as ordered to maintain safety, DHT is in place via right nare at 75 cm. Pt provided mouth care, back rub, katty care, Q2T maintained. Assessment and
medications as documented -see Flowsheet.
[2024-02-25] MEDS: LOW STRENGTH ASPIRIN 81 MG PO (08:51)
[2024-02-25] MEDS: LIPITOR 40 MG PO (08:52)
[2024-02-25] MEDS: PROTONIX IV 40 MG IV (08:52)
[2024-02-25] MEDS: DECADRON 1 MG PO (08:52)
[2024-02-25] MEDS: THIAMINE INJECTION 200 MG IV (08:52)
[2024-02-25] MEDS: NSS (PRESERVATIVE FREE) 10 ML IV (08:52)
[2024-02-25] MEDS: KEPPRA 500 MG IV ×2 (08:52→19:25)
[2024-02-25] MEDS: RISPERDAL ORAL SOLUTION 0.25 MG TUBE ×2 (08:53→19:25)
--- NOTE | 2024-02-25 09:02 | W.PN.ID1 ---
Date of Service
Date of Service: February 25, 2024
Today's Communication
- c/w ciprofloxacin IV when able to take oral can be switched to oal ciprofloxacin 500 mg PO BID to complete a 14 day total course of effective rx: 02/20-03/05
Assessment / Plan
Likely Prostatitis - UTI due to Klebsiella
Bacteremia - due to Klebsiella
Probable aspiration pneumonitis vs atelectasis vs pneumonia
Seizure Disorder on Keppra
TELMA - improving
- h/o recurrent UTIs in a male, without known stones suggests prostatitis
- renal US 11/20 no stones
- c/w ciprofloxacin IV when able to take oral can be switched to oal ciprofloxacin 500 mg PO BID to complete a 14 day total course of effective rx: 02/20-03/05
- QTc - remains acceptable 460
follow up with his urologist Dr Piper
Chief Complaint
-: Bacteremia
Subjective / Review of Systems
afebrile
bp stable
dobhoff reinserted last night
Vital Signs / Physical Exam
Vital Signs
Vital Signs
Temp Pulse Resp BP Pulse Ox
97.9 F 97 22 148/100 92
02/25/24 07:40 02/25/24 07:22 02/25/24 07:22 02/25/24 04:00 02/25/24 07:22
Physical Exam
Constitutional: No Acute Distress
Cardiovascular: Regular Rate and S1/S2; Negative Murmur or Rub
Pulmonary: Clear and Symmetric; Negative Wheezes or Rales
Gastrointestinal: Soft, Non Tender, Non Distended and Normal Bowel Sounds
Skin: Warm and Dry; Negative Rash or Jaundice
Objective Data
Lab Data
Lab Results
02/25/24 04:22
02/25/24 04:22
PT 18.6 Sec (11.4-14.6) H 02/22/24 05:23
INR 1.53 02/22/24 05:23
APTT 40.1 Sec (23.4-35.0) H 02/22/24 05:23
Estimated Creat Clear 55 ml/min 02/25/24 04:22
Lactic Acid 1.5 mmol/L (0.7-2.0) 02/23/24 17:06
Total Bilirubin 1.1 mg/dl (0.2-1.3) 02/25/24 04:22
AST 65 U/L (17-59) H 02/25/24 04:22
ALT 55 U/L (0-50) H 02/25/24 04:22
Alkaline Phosphatase 89 U/L (38-126) 02/25/24 04:22
Most recent labs reviewed.
Micro Results:
02/21/24 14:27 Blood Culture - Preliminary
Blood/Venous No Growth in 72 hours- Final report to follow
02/21/24 14:27 Blood Culture - Final
Blood/Venous Klebsiella pneumoniae
Gram Stain - Final
02/21/24 14:41 Urine Culture - Final
Urine Klebsiella pneumoniae
02/21/24 21:47 MRSA Screen - Final
Nose No Methicillin Resistant Staphylococcus aureus isolated.
02/21/24 21:46 - Final
Feces/Stool Negative for Norovirus GI and GII.
02/21/24 14:27 Influenza Types A & B (GARRETT) - Final
Nasal Swab Negative for Influenza A & B, NAAT
Negative results must be combined with clinical observations
and patient history.
Nucleic Acid Amplification test (NAAT)performed on the
[employer] platform.
--- NOTE | 2024-02-25 10:07 | W.PN.HOSP.TC ---
Today's Communication/Plan
-
IV ciprofloxacin. Start tube feeding diet. PT OT eval.
Assessment / Plan
Assessment / Plan
Physical exam:
General: Acute on chronically ill
HEENT: Normocephalic, Atraumatic and Moist Mucous Membranes
Respiratory: Bilateral scattered rhonchi; Negative Wheezes, Rales
Cardiac: Regular Rhythm and S1/S2
GI: Soft, Nontender and mildly distended
Musculoskeletal: No Clubbing, No Cyanosis and No Edema
Neuro: Awake, Alert and Disoriented, and restraints.
Psych: Anxious, lack of judgment and insight.
A/P:
Assessment:
73 yo male presents to the ED due to altered mental mental status, cough, vomiting, fever, as well as increased lethargy. Patient was found to be septic and given fluids and started on antibiotics in the ED. Patient's condition improved after
initial treatment however he still remains hypotensive. Was switched to ICU level care over night due to continued hypotension even with fluids. Due to continued hypotension, was started on pressors. Currently patient is off of pressors and his
blood pressure has improved. He is still on antibiotics and an NG tube due to his incidence of vomiting. Patient remains stable but occasionally gets fidgety most likely due to his dementia.
Plan:
#Septic Shock due to probably aspiration pneumonia causing acute delirium
- Given 4L NSS bolus yesterday but remained hypotensive - upgraded to ICU last night and started on Levophed
- Weaned off of Levophed and continues to be normotensive
- Gram neg bacili grown (Klebsiella)
- Fever has now resolved
- Lactate 1.5, resolved
- covid and flu neg
- Negative Norovirus
- Metabolic acidosis, Probable to increased Lactate, has now resolved
- Switched to NSS
- CXR (02/21)- pleural parenchymal airspace disease at the left lung base consistent with small pleural effusion with underlying pneumonia versus atelectasis
- Most likely due to aspiration
- Patient now on Cipro IV
- Speech saw him today and recommends strict NPO and will reassess over the weekend
- DHT ordered to help in nutrition
- Lumber Scaler will help with tube feed recommendations
Today on 02/24:
-WBC trending down, hemoglobin stable, platelet count trending up, creatinine trending down, electrolytes within normal limits, LFTs mixed pattern but overall trending down.
-Start tube feedings today with Jevity 1.5
-Discussed with speech therapy to reevaluate swallowing in a.m.
-Continue restraints
-Continue IV Cipro
-Continue Risperdal
-PT OT eval
-Discussed with daughter and son at bedside whom I also spoke about patient's since I am seeing both.
#TELMA
- Most likely pre-renal in nature
- Will continue to give fluids
- Resolving
- Creatinine Improving (1.9-1.6)Continue Fluid management
- Continue monitoring BMP
- Bicarb drip was D/Cd
#Acute Hypoxemic Resp Failure
-on 2L O2, 98% Sat
-Resolving, try to wean to room air
-Chest X-ray ordered to check for worsening breathing
#Thrombocytopenia
-Platelet count 95
-Continue to monitor for further bleeding
-Possibly due to Heparin, discontinued Heparin and started on SCDs for DVT prophylaxis
#Functional Ileus
- Resolving
- CR Obstruct Series- No evidence for bowel obstruction or free intraperitoneal air.
- Patient took out NGT by himself overnight
- Get patient to ambulate and move around
- Last bowel movement on 02/21
#Hypocalcemia
-Probable to Worsening kidney function
-Repleting calcium
#Hypokalemia
-Repleted Potassium
-now 3.5, replete as necessary
#Hypomagnesemia
-Metabolic derangement was most likely due to sepsis
-Repleted
# Hyperlipidemia
- cont atorvastatin
#Hyperphosphatemia
-Continue to monitor, may be due to TELMA
# Dementia
- acute delirium from sepsis with underlying dementia
- According to son, he is returning to baseline
- Patient given mittens to help prevent him from pulling his nasogastric tube
- Started on Risperdal to help manage his symptoms
- Spoke with son and he was okay with the decision
# Seizure prevention from previous brain surgery
- Cont Levetiracetam
Full Code
DVT Prophylaxis: SCDs
Total time spent on today's encounter was 52 minutes which included time spent in counseling the patient/family regarding diagnosis and treatment plan as listed above, goals of care, and symptom management. Case was discussed with nursing staff,
specialists, and care coordinators/case management. All labs and imaging personally reviewed by me. Remainder the time spent in detailed review of previous records, lab data, imaging, and other medical provider documentation.
Anticipated Discharge: 24 - 48 hours
Subjective/Interval History
-
Date of Service: February 25, 2024
Patient alert but disoriented. Patient with some readings isolated elevated blood pressure but overall remains within decent parameters.
Objective Data
-
Labs:
Laboratory Results
02/25/24
04:22
WBC 8.7
Hgb 12.2 L
Hct 38.0 L
Plt Count 126 L D
Sodium 141
Potassium 3.5
Chloride 106
Carbon Dioxide 28
BUN 35 H
Creatinine 1.3
Glucose 92
Calcium 8.1 L
Total Bilirubin 1.1
AST 65 H
ALT 55 H
Alkaline Phosphatase 89
Vital Signs:
Vital Signs
Temp Pulse Resp BP Pulse Ox
97.9 F 97 22 148/100 92
02/25/24 07:40 02/25/24 07:22 02/25/24 07:22 02/25/24 04:00 12/21/24 07:22
I&O
02/24/24 02/25/24 02/26/24
06:59 06:59 06:59
Intake Total 1050 / 1050 0 / 0
Output Total 451 / 451 1300 / 1300
Balance 599 / 599 -1300 / -1300
[2024-02-25] MEDS: CIPRO 400 MG 200 IV (11:38)
--- NOTE | 2024-02-25 15:10 | PTCARENOTE ---
Pt. arrived via bed from ICU, Pt. sleeping at this time, VSS. [employer] called to deliver tube feeding, will start when arrives.
[2024-02-26] MEDS: CIPRO 400 MG 200 IV (00:05)
[2024-02-26] MEDS: DUONEB 3 ML INH ×4 (01:00→19:28)
[2024-02-26 07:45] VITALS: BP 125/91
[2024-02-26] MEDS: PULMICORT 0.5 MG INH (07:50)
[2024-02-26 08:26] LABS: % Basophils 0.3 % (0-2); % Eosinophils 0.9 % (0-6); % Immature Granulocytes 1.2 % (0-0.5); % Lymphocytes 5.6 % (20.5-51.1); % Monocytes 11.2 % (1.7-9.3); % Neutrophils 80.8 % (42.2-75.2); Absolute Eosinophils 0.1 10^3/uL (0-0.7); Absolute Immature Granulocytes 0.1 10^3/uL (0-0.05); Absolute Lymphocytes 0.4 10^3/uL (1.2-3.4); Absolute Monocytes 0.9 10^3/uL (0.1-0.6); Absolute Neutrophils 6.2 10^3/uL (1.4-6.5); Hematocrit 35.7 % (39.0-52.0); Hemoglobin 11.5 g/dL (13.0-18.0); Mean Corp Hgb Conc. 32.2 g/dL (33.0-37.0); Mean Corpuscular Hgb 30.7 pg (27.0-31.0); Mean Corpuscular Volume 95.5 fL (80.0-94.0); Mean Platelet Volume 9.5 fL (7.4-10.4); Nucleated Red Blood Cells % 0 % (-); Platelet Count 118 10^3/uL (130-400); Red Blood Cell Count 3.74 10^6/uL (4.70-6.10); Red Cell Dist. Width 15.7 % (11.5-14.5); White Blood Cell Count 7.6 10^3/uL (4.8-10.8)
--- NOTE | 2024-02-26 08:30 | W.PN.HOSP.TC ---
Today's Communication/Plan
-
IV antibiotics. Continue tube feedings.
Assessment / Plan
Assessment / Plan
Physical exam:
General: Acute on chronically ill
HEENT: Normocephalic, Atraumatic and Moist Mucous Membranes
Respiratory: Bilateral scattered rhonchi; Negative Wheezes, Rales
Cardiac: Regular Rhythm and S1/S2
GI: Soft, Nontender and mildly distended
Musculoskeletal: No Clubbing, No Cyanosis and No Edema
Neuro: Awake, Alert and Disoriented, and restraints.
Psych: Anxious, lack of judgment and insight.
A/P:
Assessment:
73 yo male presents to the ED due to altered mental mental status, cough, vomiting, fever, as well as increased lethargy. Patient was found to be septic and given fluids and started on antibiotics in the ED. Patient's condition improved after
initial treatment however he still remains hypotensive. Was switched to ICU level care over night due to continued hypotension even with fluids. Due to continued hypotension, was started on pressors. Currently patient is off of pressors and his
blood pressure has improved. He is still on antibiotics and an NG tube due to his incidence of vomiting. Patient remains stable but occasionally gets fidgety most likely due to his dementia.
Plan:
#Septic Shock due to probably aspiration pneumonia causing acute delirium
- Given 4L NSS bolus yesterday but remained hypotensive - upgraded to ICU last night and started on Levophed
- Weaned off of Levophed and continues to be normotensive
- Gram neg bacili grown (Klebsiella)
- Fever has now resolved
- Lactate 1.5, resolved
- covid and flu neg
- Negative Norovirus
- Metabolic acidosis, Probable to increased Lactate, has now resolved
- Switched to NSS
- CXR (02/21)- pleural parenchymal airspace disease at the left lung base consistent with small pleural effusion with underlying pneumonia versus atelectasis
- Most likely due to aspiration
- Patient now on Cipro IV
- Speech saw him today and recommends strict NPO and will reassess over the weekend
- DHT ordered to help in nutrition
- Utility Person will help with tube feed recommendations
Today on 02/24:
-WBC trending down, hemoglobin stable, platelet count trending up, creatinine trending down, electrolytes within normal limits, LFTs mixed pattern but overall trending down.
-Started tube feedings yesterday with Jevity 1.5
-Discussed with speech therapy to reevaluate swallowing in a.m.
-Continue restraints
-Continue IV Cipro
-Continue Risperdal
-PT OT eval
-Discussed with daughter and son at bedside whom I also spoke about patient's since I am seeing both.
Today on 02/25:
Continue TF
Speech therapy reeval and maintain strict n.p.o.
Continue IV ciprofloxacin
Replete K with IV rider 40 mEq
Discussed with family at bedside again today on 02/25
#TELMA
- Most likely pre-renal in nature
- Will continue to give fluids
- Resolving
- Creatinine Improving (1.9-1.6)Continue Fluid management
- Continue monitoring BMP
- Bicarb drip was D/Cd
#Acute Hypoxemic Resp Failure
-on 2L O2, 98% Sat
-Resolving, try to wean to room air
-Chest X-ray ordered to check for worsening breathing
#Thrombocytopenia
-Platelet count 95
-Continue to monitor for further bleeding
-Possibly due to Heparin, discontinued Heparin and started on SCDs for DVT prophylaxis
#Functional Ileus
- Resolving
- CR Obstruct Series- No evidence for bowel obstruction or free intraperitoneal air.
- Patient took out NGT by himself overnight
- Get patient to ambulate and move around
- Last bowel movement on 02/21
#Hypocalcemia
-Probable to Worsening kidney function
-Repleting calcium
#Hypokalemia
-Repleted Potassium
-now 3.5, replete as necessary
#Hypomagnesemia
-Metabolic derangement was most likely due to sepsis
-Repleted
# Hyperlipidemia
- cont atorvastatin
#Hyperphosphatemia
-Continue to monitor, may be due to TELMA
# Dementia
- acute delirium from sepsis with underlying dementia
- According to son, he is returning to baseline
- Patient given mittens to help prevent him from pulling his nasogastric tube
- Started on Risperdal to help manage his symptoms
- Spoke with son and he was okay with the decision
# Seizure prevention from previous brain surgery
- Cont Levetiracetam
Full Code
DVT Prophylaxis: SCDs
Anticipated Discharge: > 48 hours
Subjective/Interval History
-
Date of Service: February 26, 2024
Patient lethargic and disoriented. On supplemental oxygen. Afebrile
Objective Data
-
Labs:
Laboratory Results
02/26/24
08:00
WBC 7.6
Hgb 11.5 L
Hct 35.7 L
Plt Count 118 L
Sodium Pending
Potassium Pending
Chloride Pending
Carbon Dioxide Pending
BUN Pending
Creatinine Pending
Glucose Pending
Calcium Pending
Total Bilirubin Pending
AST Pending
ALT Pending
Alkaline Phosphatase Pending
Vital Signs:
Vital Signs
Temp Pulse Resp BP Pulse Ox
99.3 F 95 18 149/94 92
02/25/24 23:34 02/26/24 07:53 02/26/24 07:53 02/25/24 23:34 02/26/24 07:53
I&O
02/25/24 02/26/24 02/27/24
06:59 06:59 06:59
Intake Total 0 / 0 985 / 985
Output Total 1300 / 1300 900 / 900
Balance -1300 / -1300 85 / 85
[2024-02-26] MEDS: PROTONIX IV 40 MG IV (08:41)
[2024-02-26] MEDS: RISPERDAL ORAL SOLUTION 0.25 MG TUBE ×2 (08:42→21:11)
[2024-02-26] MEDS: LIPITOR 40 MG PO (08:42)
[2024-02-26] MEDS: DECADRON 1 MG PO (08:42)
[2024-02-26] MEDS: KEPPRA 500 MG IV ×2 (08:42→19:45)
[2024-02-26] MEDS: THIAMINE INJECTION 200 MG IV (08:42)
[2024-02-26] MEDS: LOW STRENGTH ASPIRIN 81 MG PO (08:42)
[2024-02-26] MEDS: NSS (PRESERVATIVE FREE) 10 ML IV (08:42)
[2024-02-26 09:10] LABS: ALT (SGPT) 61 U/L (0-50); AST (SGOT) 54 U/L (17-59); Albumin 2.9 g/dl (3.5-5.0); Alkaline Phosphatase 73 U/L (38-126); Blood Urea Nitrogen 33 mg/dl (9-20); Calcium 7.7 mg/dl (8.4-10.2); Carbon Dioxide 29 mmol/L (22-30); Chloride 105 mmol/L (98-107); Estimated Creatinine Clearance 60 ml/min; Glucose 91 mg/dl (70-99); Potassium 3.3 mmol/L (3.5-5.1); Sodium 142 mmol/L (135-145); Total Protein 5.3 g/dl (6.3-8.2); eGFR > 60.00
[2024-02-26] MEDS: CIPRO 200 MG IV ×2 (12:31→23:13)
[2024-02-26] MEDS: KCL 270 MEQ IV (13:42)
[2024-02-26 15:50] VITALS: BP 145/91
[2024-02-26 23:48] VITALS: BP 157/86
[2024-02-27] MEDS: DUONEB 3 ML INH ×4 (02:30→19:35)
[2024-02-27 07:30] VITALS: BP 134/74
[2024-02-27 08:42] LABS: % Basophils 0.6 % (0-2); % Eosinophils 2.4 % (0-6); % Immature Granulocytes 1.3 % (0-0.5); % Lymphocytes 7.3 % (20.5-51.1); % Monocytes 10.1 % (1.7-9.3); % Neutrophils 78.3 % (42.2-75.2); Absolute Basophils 0.1 10^3/uL (0-0.2); Absolute Eosinophils 0.2 10^3/uL (0-0.7); Absolute Immature Granulocytes 0.1 10^3/uL (0-0.05); Absolute Lymphocytes 0.6 10^3/uL (1.2-3.4); Absolute Monocytes 0.9 10^3/uL (0.1-0.6); Absolute Neutrophils 6.6 10^3/uL (1.4-6.5); Hematocrit 31.6 % (39.0-52.0); Hemoglobin 10.7 g/dL (13.0-18.0); Mean Corp Hgb Conc. 33.9 g/dL (33.0-37.0); Mean Corpuscular Hgb 31.5 pg (27.0-31.0); Mean Corpuscular Volume 92.9 fL (80.0-94.0); Nucleated Red Blood Cells % 0 % (-); Platelet Count 111 10^3/uL (130-400); Red Cell Dist. Width 15.8 % (11.5-14.5); White Blood Cell Count 8.4 10^3/uL (4.8-10.8)
--- NOTE | 2024-02-27 09:31 | W.PN.HOSP.TC ---
Today's Communication/Plan
-
Continue to monitor patient for any worsening symptoms. Continue IV Abx.
Assessment / Plan
Assessment / Plan
Assessment:
73 yo male presents to the ED due to altered mental status, cough, vomiting, fever, as well as increased lethargy. Patient was found to be septic and given fluids and started on antibiotics in the ED. Patient's condition improved after initial
treatment however he still remains hypotensive. Was switched to ICU level care over night due to continued hypotension even with fluids. Due to continued hypotension, was started on pressors. Currently patient is off of pressors and his blood
pressure has improved. He is still on antibiotics and an NG tube due to his incidence of vomiting. Patient remains stable but occasionally gets fidgety most likely due to his dementia.
Plan:
#Septic Shock due to probably aspiration pneumonia causing acute delirium
- Given 4L NSS bolus yesterday but remained hypotensive - upgraded to ICU last night and started on Levophed
- Weaned off of Levophed and continues to be normotensive
- Gram neg bacili grown (Klebsiella)
- Fever has now resolved
- Lactate 1.5, resolved
- covid and flu neg
- Negative Norovirus
- Metabolic acidosis, Probable to increased Lactate, has now resolved
- Switched to NSS
- CXR (02/21)- pleural parenchymal airspace disease at the left lung base consistent with small pleural effusion with underlying pneumonia versus atelectasis
- Most likely due to aspiration
- Patient started on Jevity 1.5 on 02/24
- Continue restraints
- Continue IV Cipro
- Continue Risperdal
- Continue TF
- Speech therapy re-eval yesterday and recommended maintain strict n.p.o.
- Continue IV ciprofloxacin
- Replete K with IV rider 40 mEq as needed
#TELMA
- Resolved
- Creatinine Improved 1.3
- Most likely pre-renal in nature
- Will continue to give fluids
- Continue monitoring BMP
#Acute Hypoxemic Resp Failure
-Weaned to Room Air (94% O2)
-Resolving
-Continue to monitor O2 levels
#Thrombocytopenia
-111 now
-Continue to monitor
-Possibly due to Heparin, discontinued Heparin and started on SCDs for DVT prophylaxis
#Functional Ileus
- Resolving
- CR Obstruct Series- No evidence for bowel obstruction or free intraperitoneal air.
- Get patient to ambulate and move around
- Patient on DHT for tube feeds
#Hypocalcemia
-Probable to Worsening kidney function
-Repleting calcium as needed
#Hypokalemia
-Replete as needed
-now 3.5, replete as necessary
#Hypomagnesemia
-Metabolic derangement was most likely due to sepsis
-Repleted
# Hyperlipidemia
- cont atorvastatin
#Hyperphosphatemia
-Continue to monitor, may be due to TELMA
# Dementia
- acute delirium from sepsis with underlying dementia
- According to son, he is returning to baseline
- Patient given mittens to help prevent him from pulling his nasogastric tube
- Started on Risperdal to help manage his symptoms
- Spoke with son and he was okay with the decision
# Seizure prevention from previous brain surgery
- Cont Levetiracetam
Full Code
DVT Prophylaxis: SCDs
Anticipated Discharge: Within 24 hours
Subjective/Interval History
-
Date of Service: February 27, 2024
Patient has been stable with a feeding tube overnight. Patient unable to give history due to dementia. Nurse relayed that he had no overnight events. Continues to be on restraints so he does not pull out his feeding tube.
Objective Data
-
Labs:
Laboratory Results
02/27/24
07:43
WBC 8.4
Hgb 10.7 L
Hct 31.6 L
Plt Count 111 L
Sodium Pending
Potassium Pending
Chloride Pending
Carbon Dioxide Pending
BUN Pending
Creatinine Pending
Glucose Pending
Calcium Pending
Total Bilirubin Pending
AST Pending
ALT Pending
Alkaline Phosphatase Pending
Vital Signs:
Vital Signs
Temp Pulse Resp BP Pulse Ox
98.6 F 93 20 134/74 94
02/27/24 07:30 02/27/24 07:30 02/27/24 07:30 02/27/24 07:30 02/27/24 07:30
I&O
02/26/24 02/27/24 02/28/24
06:59 06:59 06:59
Intake Total 985 / 985 1920 / 1920
Output Total 900 / 900 500 / 500
Balance 85 / 85 1420 / 1420
Review of Systems
-
Unable to obtain full review of systems at this time due to: Dementia
Constitutional: Reports No Symptoms
EENT: Reports No Symptoms Reported
Respiratory: Reports No Symptoms
Cardiac: Reports No Symptoms
Abdomen/GI: Reports No Symptoms
Genitourinary: Reports No Symptoms
Musculoskeletal: Reports No Symptoms
Skin: Reports No Symptoms
Neuro: Reports No Symptoms
Endocrine: Reports No Symptoms
Hematologic / Lymphatic: Reports No Symptoms
Allergy / Immunology: Reports No Symptoms
Physical Exam
-
General: Appears Chronically Ill
HEENT: Normocephalic, Atraumatic and Moist Mucous Membranes
Respiratory: Negative Wheezes or Rhonchi
Cardiac: Regular Rhythm and S1/S2
GI: Soft, Nontender and Distended (mild)
Musculoskeletal: No Clubbing, No Cyanosis and No Edema
Skin: Warm
Neuro: Awake, Alert and Other (Restrained)
Psych: Anxious and Apparent Dementia; Negative Intact Judgement/Insight
Data Reviewed
-
Labs: Labs Reviewed by me, Discussed with Physician, Discussed with Nurse and Discussed with Patient
[2024-02-27] MEDS: RISPERDAL ORAL SOLUTION 0.25 MG TUBE ×2 (09:36→20:32)
[2024-02-27] MEDS: DECADRON 1 MG TUBE (09:36)
[2024-02-27] MEDS: LIPITOR 40 MG TUBE (09:36)
[2024-02-27] MEDS: KEPPRA 500 MG IV ×2 (09:37→20:31)
[2024-02-27] MEDS: PROTONIX IV 40 MG IV (09:37)
[2024-02-27] MEDS: LOW STRENGTH ASPIRIN 81 MG TUBE (09:37)
[2024-02-27] MEDS: NSS (PRESERVATIVE FREE) 10 ML IV (09:38)
[2024-02-27] MEDS: THIAMINE INJECTION 200 MG IV (09:38)
--- NOTE | 2024-02-27 10:48 | CM ---
Chart reviewed for d/c planning.
Pt cont restraints
Tube feedings started yesterday
Cont IV abx
ST to re-evaluate swallowing
PT/OT currently recommending SNF at this time. Referrals completed for [facility]. Will need to be off of restraints for rehab acceptance.
Plan: SNF recommended when pt is medically stable for d/c
CM will cont to follow for d/c planning
--- NOTE | 2024-02-27 13:55 | W.PN.ID1 ---
Date of Service
Date of Service: February 27, 2024
Today's Communication
- given persistent AMS trial of switch to cefazolin, still to complete a 14 day total course of effective rx: 02/20-03/05
- if improvement then would complete the course with IV cefazolin (better penetration into the prostate than oral)
Assessment / Plan
AMS - persistent
Likely Prostatitis - UTI due to Klebsiella
Bacteremia - due to Klebsiella
Probable aspiration pneumonitis vs atelectasis vs pneumonia
Seizure Disorder on Keppra
TELMA - improving
- h/o recurrent UTIs in a male, without known stones suggests prostatitis
- renal US 11/20 no stones
- given persistent AMS trial of switch to cefazolin, still to complete a 14 day total course of effective rx: 02/20-03/05
- if improvement then would complete the course with IV cefazolin (better penetration into the prostate than oral)
follow up with his urologist Dr Piper
Chief Complaint
-: Bacteremia
Subjective / Review of Systems
afebrile
bp stable
tube feeds on going
no events overnight
ongoing AMS
Vital Signs / Physical Exam
Vital Signs
Vital Signs
Temp Pulse Resp BP Pulse Ox
98.6 F 88 16 134/74 94
02/27/24 07:30 02/27/24 13:34 02/27/24 13:34 02/27/24 07:30 02/27/24 08:50
Physical Exam
Constitutional: No Acute Distress
Cardiovascular: Regular Rate and S1/S2; Negative Murmur or Rub
Pulmonary: Clear and Symmetric; Negative Wheezes or Rales
Gastrointestinal: Soft, Non Tender, Non Distended and Normal Bowel Sounds
Skin: Warm and Dry; Negative Rash or Jaundice
Objective Data
Lab Data
Lab Results
02/27/24 07:43
02/27/24 07:43
PT 18.6 Sec (11.4-14.6) H 02/22/24 05:23
INR 1.53 02/22/24 05:23
APTT 40.1 Sec (23.4-35.0) H 02/22/24 05:23
Estimated Creat Clear Cancelled 02/27/24 07:43
Lactic Acid 1.5 mmol/L (0.7-2.0) 02/23/24 17:06
Total Bilirubin Cancelled 02/27/24 07:43
AST Cancelled 02/27/24 07:43
ALT Cancelled 02/27/24 07:43
Alkaline Phosphatase Cancelled 02/27/24 07:43
Most recent labs reviewed.
Micro Results:
02/21/24 14:27 Blood Culture - Preliminary
Blood/Venous Klebsiella pneumoniae
Gram Stain - Preliminary
02/21/24 14:27 Blood Culture - Final
Blood/Venous Klebsiella pneumoniae
Gram Stain - Final
02/21/24 14:41 Urine Culture - Final
Urine Klebsiella pneumoniae
02/21/24 21:47 MRSA Screen - Final
Nose No Methicillin Resistant Staphylococcus aureus isolated.
02/21/24 21:46 - Final
Feces/Stool Negative for Norovirus GI and GII.
02/21/24 14:27 Influenza Types A & B (GARRETT) - Final
Nasal Swab Negative for Influenza A & B, NAAT
Negative results must be combined with clinical observations
and patient history.
Nucleic Acid Amplification test (NAAT)performed on the
[employer] platform.
[2024-02-27] MEDS: CIPRO 400 MG 200 IV (14:11)
[2024-02-27 15:20] VITALS: BP 124/92
[2024-02-27] MEDS: ANCEF 10 IV ×2 (16:26→23:50)
[2024-02-28 00:01] VITALS: BP 130/68
[2024-02-28] MEDS: DUONEB 3 ML INH ×3 (01:06→13:32)
[2024-02-28 08:15] VITALS: BP 155/91
[2024-02-28 08:53] LABS: Hematocrit 38.3 % (39.0-52.0); Hemoglobin 12.3 g/dL (13.0-18.0); Mean Corp Hgb Conc. 32.1 g/dL (33.0-37.0); Mean Corpuscular Hgb 30.5 pg (27.0-31.0); Mean Platelet Volume 9.7 fL (7.4-10.4); Platelet Count 163 10^3/uL (130-400); Red Blood Cell Count 4.03 10^6/uL (4.70-6.10); Red Cell Dist. Width 15.9 % (11.5-14.5); White Blood Cell Count 8.5 10^3/uL (4.8-10.8)
[2024-02-28 09:12] LABS: ALT (SGPT) 64 U/L (0-50); AST (SGOT) 65 U/L (17-59); Albumin 3.1 g/dl (3.5-5.0); Alkaline Phosphatase 72 U/L (38-126); Blood Urea Nitrogen 28 mg/dl (9-20); Calcium 7.6 mg/dl (8.4-10.2); Carbon Dioxide 25 mmol/L (22-30); Chloride 110 mmol/L (98-107); Estimated Creatinine Clearance 72 ml/min; Glucose 92 mg/dl (70-99); Potassium 4.2 mmol/L (3.5-5.1); Sodium 142 mmol/L (135-145); Total Bilirubin 0.9 mg/dl (0.2-1.3); Total Protein 5.8 g/dl (6.3-8.2); eGFR > 60.00
--- NOTE | 2024-02-28 09:20 | W.PN.HOSP.TC ---
Documented by User: Binh Thakkar MD, Resident 02/28/24 09:33
Today's Communication/Plan
-
Continue Abx and continue monitoring for any improvements in mental status
Assessment / Plan
Assessment / Plan
Assessment:
73 yo male presents to the ED due to altered mental status, cough, vomiting, fever, as well as increased lethargy. Patient was found to be septic and given fluids and started on antibiotics in the ED. Patient's condition improved after initial
treatment however he still remains hypotensive. Was switched to ICU level care over night due to continued hypotension even with fluids. Due to continued hypotension, was started on pressors. Currently patient is off of pressors and his blood
pressure has improved. He is still on antibiotics and an NG tube due to his incidence of vomiting. Patient remains stable but occasionally gets fidgety most likely due to his dementia.
Plan:
# Septic Shock secondary to UTI/Prostatitis
- Given 4L NSS bolus yesterday but remained hypotensive - upgraded to ICU last night and started on Levophed
- Weaned off of Levophed and continues to be normotensive
- Gram neg bacili grown (Klebsiella)
- Fever has now resolved
- Lactate 1.5, resolved
- covid and flu neg
- Negative Norovirus
- Metabolic acidosis, Probable to increased Lactate, has now resolved
- Switched to NSS
- CXR (02/21)- pleural parenchymal airspace disease at the left lung base consistent with small pleural effusion with underlying pneumonia versus atelectasis
- Most likely due to aspiration
- Patient started on Jevity 1.5 on 02/24
- Continue restraints
- Continue IV Cipro
- Continue Risperdal
- Continue TF
- Speech therapy re-eval and still recommended maintain strict n.p.o.
- IV Cipro switched to IV Ancef due to better penetration into Prostate (continue 14 days in total from 02/20-03/05)
- Replete K with IV rider 40 mEq as needed
- Follow up with urologist Dr. Piper
#TELMA
- Resolved
- Creatinine Improved 1.0
- Continue monitoring BMP
#Acute Hypoxemic Resp Failure
-Weaned to Room Air (98% O2)
-Resolved
-Continue to monitor O2 levels
#Thrombocytopenia
-Resolved
-163 now
-Continue to monitor
-Possibly due to Heparin, discontinued Heparin and started on SCDs for DVT prophylaxis
#Functional Ileus
- CR Obstruct Series- No evidence for bowel obstruction or free intraperitoneal air.
- Get patient to ambulate and move around
- Patient on DHT for tube feeds
#Hypocalcemia
-Probable to Worsening kidney function
-Repleting calcium as needed
#Hypokalemia
-Resolved
-now 4.2, replete as necessary
#Hypomagnesemia
-Metabolic derangement was most likely due to sepsis
-Repleted
# Hyperlipidemia
- cont atorvastatin
#Hyperphosphatemia
-Continue to monitor, may be due to TELMA
# Dementia
- acute delirium from sepsis with underlying dementia
- According to son, he is returning to baseline
- Started on Risperdal to help manage his symptoms
- On restraints to help prevent pulling out tubes
- Spoke with son and he was okay with the decision
# Seizure prevention from previous brain surgery
- Cont Levetiracetam
Full Code
DVT Prophylaxis: SCDs
Anticipated Discharge: 24 - 48 hours
Subjective/Interval History
-
Date of Service: February 28, 2024
Patient still remains apparently demented. He is much less reactive upon examination. According to Nurse, he did not have any adverse events overnight.
Objective Data
-
Labs:
Laboratory Results
02/28/24
07:45
WBC 8.5
Hgb 12.3 L
Hct 38.3 L
Plt Count 163 D
Sodium 142
Potassium 4.2 D
Chloride 110 H
Carbon Dioxide 25
BUN 28 H
Creatinine 1.0
Glucose 92
Calcium 7.6 L
Total Bilirubin 0.9
AST 65 H
ALT 64 H
Alkaline Phosphatase 72
Vital Signs:
Vital Signs
Temp Pulse Resp BP Pulse Ox
99.3 F 85 21 155/91 98
02/28/24 08:15 02/28/24 08:15 02/28/24 08:15 02/28/24 08:15 02/28/24 08:15
I&O
02/27/24 02/28/24 02/29/24
06:59 06:59 06:59
Intake Total 1920 / 1920 560 / 560
Output Total 500 / 500 200 / 200
Balance 1420 / 1420 360 / 360
Review of Systems
-
Unable to obtain full review of systems at this time due to: Dementia
Constitutional: Reports No Symptoms
EENT: Reports No Symptoms Reported
Respiratory: Reports No Symptoms
Cardiac: Reports No Symptoms
Abdomen/GI: Reports No Symptoms
Genitourinary: Reports No Symptoms
Musculoskeletal: Reports No Symptoms
Skin: Reports No Symptoms
Neuro: Reports No Symptoms
Endocrine: Reports No Symptoms
Hematologic / Lymphatic: Reports No Symptoms
Allergy / Immunology: Reports No Symptoms
Physical Exam
-
General: No Apparent Distress and Appears Chronically Ill
HEENT: Normocephalic and Atraumatic
Respiratory: Rhonchi and Non Labored Respirations
Cardiac: Regular Rhythm and S1/S2
GI: Soft, Nontender and Distended
Musculoskeletal: No Clubbing, No Cyanosis and No Edema
Skin: Warm
Neuro: Awake
Psych: Apparent Dementia and Other (In restraints)
Data Reviewed
-
Labs: Labs Reviewed by me, Discussed with Physician, Discussed with Nurse and Discussed with Patient

Documented by User: Mika Carpenter DO 02/28/24 12:47
Assessment / Plan
Assessment / Plan
Assessment:
73 yo male presents to the ED due to altered mental status, cough, vomiting, fever, as well as increased lethargy. Patient was found to be septic and given fluids and started on antibiotics in the ED. Patient's condition improved after initial
treatment however he still remains hypotensive. Was switched to ICU level care over night due to continued hypotension even with fluids. Due to continued hypotension, was started on pressors. Currently patient is off of pressors and his blood
pressure has improved. He is still on antibiotics and an NG tube due to his incidence of vomiting. Patient remains stable but occasionally gets fidgety most likely due to his dementia.
Plan:
# Septic Shock secondary to UTI/Prostatitis
- Given 4L NSS bolus yesterday but remained hypotensive - upgraded to ICU last night and started on Levophed
- Weaned off of Levophed and continues to be normotensive
- Gram neg bacili grown (Klebsiella)
- Fever has now resolved
- Lactate 1.5, resolved
- covid and flu neg
- Negative Norovirus
- Metabolic acidosis, Probable to increased Lactate, has now resolved
- Switched to NSS
- CXR (02/21)- pleural parenchymal airspace disease at the left lung base consistent with small pleural effusion with underlying pneumonia versus atelectasis
- Most likely due to aspiration
- Patient started on Jevity 1.5 on 02/24
- Continue restraints
- Continue Risperdal
- Continue TF
- Speech therapy re-eval and still recommended maintain strict n.p.o.
- IV Cipro switched to IV Ancef due to better penetration into Prostate (continue 14 days in total from 02/20-03/05)
- Replete K with IV rider 40 mEq as needed
- Follow up with urologist Dr. Piper
#TELMA
- Resolved
- Creatinine Improved 1.0
- Continue monitoring BMP
#Acute Hypoxemic Resp Failure
-Weaned to Room Air (98% O2)
-Resolved
-Continue to monitor O2 levels
#Thrombocytopenia
-Resolved
-163 now
-Continue to monitor
-Possibly due to Heparin, discontinued Heparin and started on SCDs for DVT prophylaxis
#Functional Ileus
- CR Obstruct Series- No evidence for bowel obstruction or free intraperitoneal air.
- Get patient to ambulate and move around
- Patient on DHT for tube feeds
#Hypocalcemia
-Probable to Worsening kidney function
-Repleting calcium as needed
#Hypokalemia
-Resolved
-now 4.2, replete as necessary
#Hypomagnesemia
-Metabolic derangement was most likely due to sepsis
-Repleted
# Hyperlipidemia
- cont atorvastatin
#Hyperphosphatemia
-Continue to monitor, may be due to TELMA
# Dementia
- acute delirium from sepsis with underlying dementia
- According to son, he is returning to baseline
- Started on Risperdal to help manage his symptoms
- On restraints to help prevent pulling out tubes
- Spoke with son and he was okay with the decision
# Seizure prevention from previous brain surgery
- Cont Levetiracetam
Full Code
DVT Prophylaxis: SCDs
[2024-02-28] MEDS: ANCEF 10 IV ×2 (09:55→16:01)
[2024-02-28] MEDS: PROTONIX IV 40 MG IV (09:56)
[2024-02-28] MEDS: THIAMINE INJECTION 200 MG IV (09:56)
[2024-02-28] MEDS: NSS (PRESERVATIVE FREE) 10 ML IV (09:56)
[2024-02-28] MEDS: DECADRON 1 MG TUBE (09:56)
[2024-02-28] MEDS: LOW STRENGTH ASPIRIN 81 MG TUBE (09:58)
[2024-02-28] MEDS: KEPPRA 500 MG IV ×2 (09:58→20:26)
[2024-02-28] MEDS: LIPITOR 40 MG TUBE (09:58)
[2024-02-28] MEDS: RISPERDAL ORAL SOLUTION 0.25 MG TUBE ×2 (10:25→20:27)
[2024-02-28 11:07] VITALS: BP 142/74; PULSE 84; O2SAT 93
--- NOTE | 2024-02-28 12:33 | W.PN.ID1 ---
Date of Service
Date of Service: February 28, 2024
Today's Communication
- c/w cefazolin to complete a 14 day total course of effective rx: 02/20-03/05
- if improvement then would complete the course with IV cefazolin (better penetration into the prostate than oral)
Assessment / Plan
AMS - persistent
Likely Prostatitis - UTI due to Klebsiella
Bacteremia - due to Klebsiella
Probable aspiration pneumonitis vs atelectasis vs pneumonia
Seizure Disorder on Keppra
TELMA - improving
- h/o recurrent UTIs in a male, without known stones suggests prostatitis
- renal US 11/20 no stones
- c/w cefazolin to complete a 14 day total course of effective rx: 02/20-03/05
- if improvement then would complete the course with IV cefazolin (better penetration into the prostate than oral)
follow up with his urologist Dr Piper
Chief Complaint
-: Bacteremia
Subjective / Review of Systems
afebrile
bp stable
remains confused
Vital Signs / Physical Exam
Vital Signs
Vital Signs
Temp Pulse Resp BP Pulse Ox
99.3 F 85 21 155/91 98
02/28/24 08:15 02/28/24 08:15 02/28/24 08:15 02/28/24 08:15 02/28/24 08:15
Physical Exam
Constitutional: No Acute Distress
Cardiovascular: Regular Rate and S1/S2; Negative Murmur or Rub
Pulmonary: Clear and Symmetric; Negative Wheezes or Rales
Gastrointestinal: Soft, Non Tender, Non Distended and Normal Bowel Sounds
Skin: Warm and Dry; Negative Rash or Jaundice
Objective Data
Lab Data
Lab Results
02/28/24 07:45
02/28/24 07:45
PT 18.6 Sec (11.4-14.6) H 02/22/24 05:23
INR 1.53 02/22/24 05:23
APTT 40.1 Sec (23.4-35.0) H 02/22/24 05:23
Estimated Creat Clear 72 ml/min 02/28/24 07:45
Lactic Acid 1.5 mmol/L (0.7-2.0) 02/23/24 17:06
Total Bilirubin 0.9 mg/dl (0.2-1.3) 02/28/24 07:45
AST 65 U/L (17-59) H 02/28/24 07:45
ALT 64 U/L (0-50) H 02/28/24 07:45
Alkaline Phosphatase 72 U/L (38-126) 02/28/24 07:45
Most recent labs reviewed.
Micro Results:
02/21/24 14:27 Blood Culture - Final
Blood/Venous Klebsiella pneumoniae
Gram Stain - Final
02/21/24 14:27 Blood Culture - Final
Blood/Venous Klebsiella pneumoniae
Gram Stain - Final
02/21/24 14:41 Urine Culture - Final
Urine Klebsiella pneumoniae
02/21/24 21:47 MRSA Screen - Final
Nose No Methicillin Resistant Staphylococcus aureus isolated.
02/21/24 21:46 - Final
Feces/Stool Negative for Norovirus GI and GII.
02/21/24 14:27 Influenza Types A & B ([facility]RETT) - Final
Nasal Swab Negative for Influenza A & B, NAAT
Negative results must be combined with clinical observations
and patient history.
Nucleic Acid Amplification test (NAAT)performed on the
[employer] platform.
[2024-02-28 16:02] VITALS: BP 130/88
[2024-02-28 23:00] VITALS: BP 118/80
[2024-02-29] MEDS: ANCEF 10 IV ×4 (00:12→23:10)
[2024-02-29 08:16] VITALS: BP 157/89
[2024-02-29 08:36] LABS: Hematocrit 39.7 % (39.0-52.0); Hemoglobin 12.6 g/dL (13.0-18.0); Mean Corp Hgb Conc. 31.7 g/dL (33.0-37.0); Mean Corpuscular Hgb 31.2 pg (27.0-31.0); Mean Corpuscular Volume 98.3 fL (80.0-94.0); Mean Platelet Volume 9.6 fL (7.4-10.4); Platelet Count 193 10^3/uL (130-400); Red Blood Cell Count 4.04 10^6/uL (4.70-6.10); Red Cell Dist. Width 15.9 % (11.5-14.5); White Blood Cell Count 10.8 10^3/uL (4.8-10.8)
[2024-02-29 08:52] LABS: ALT (SGPT) 53 U/L (0-50); AST (SGOT) 66 U/L (17-59); Albumin 3.1 g/dl (3.5-5.0); Alkaline Phosphatase 83 U/L (38-126); Blood Urea Nitrogen 29 mg/dl (9-20); Calcium 7.8 mg/dl (8.4-10.2); Carbon Dioxide 28 mmol/L (22-30); Chloride 109 mmol/L (98-107); Estimated Creatinine Clearance 80 ml/min; Glucose 107 mg/dl (70-99); Potassium 3.9 mmol/L (3.5-5.1); Sodium 144 mmol/L (135-145); Total Bilirubin 0.6 mg/dl (0.2-1.3); Total Protein 5.8 g/dl (6.3-8.2); eGFR > 60.00
--- NOTE | 2024-02-29 09:28 | W.PN.HOSP.TC ---
Today's Communication/Plan
-
Continue abx and continue to monitor bowel movements
Assessment / Plan
Assessment / Plan
Assessment:
73 yo male presents to the ED due to altered mental status, cough, vomiting, fever, as well as increased lethargy. Patient was found to be septic and given fluids and started on antibiotics in the ED. Patient's condition improved after initial
treatment however he still remains hypotensive. Was switched to ICU level care over night due to continued hypotension even with fluids. Due to continued hypotension, was started on pressors. Currently patient is off of pressors and his blood
pressure has improved. He is still on antibiotics and an NG tube due to his incidence of vomiting. Patient remains stable but occasionally gets fidgety most likely due to his dementia.
Plan:
# Septic Shock secondary to UTI/Prostatitis
- Gram neg bacilli grown (Klebsiella)
- Fever has now resolved
- Lactate 1.5, resolved
- covid and flu neg
- Negative Norovirus
- Metabolic acidosis, Probable to increased Lactate, has now resolved
- Switched to NSS
- CXR (02/21)- pleural parenchymal airspace disease at the left lung base consistent with small pleural effusion with underlying pneumonia versus atelectasis
- Most likely due to aspiration
- Patient started on Jevity 1.5 on 02/24
- Continue restraints
- Continue Risperdal
- Continue TF
- Speech therapy re-eval and still recommended maintain strict n.p.o.
- IV Cipro switched to IV Ancef due to better penetration into Prostate (continue 14 days in total from 02/20-03/05)
- Replete K with IV rider 40 mEq as needed
- Follow up with urologist Dr. Piper
#TELMA
- Resolved
- Creatinine Improved 1.0
- Continue monitoring BMP
#Acute Hypoxemic Resp Failure
-Weaned to Room Air (98% O2)
-Resolved
-Continue to monitor O2 levels
#Thrombocytopenia
-Resolved
-163 now
-Continue to monitor
-Possibly due to Heparin, discontinued Heparin and started on SCDs for DVT prophylaxis
#Functional Ileus
- CR Obstruct Series- No evidence for bowel obstruction or free intraperitoneal air.
- Get patient to ambulate and move around
- Patient on DHT for tube feeds
- Abdominal distention might be due to constipation
#Hypocalcemia
-Probable to Worsening kidney function
-Repleting calcium as needed
#Hypokalemia
-Resolved
-now 3.9, replete as necessary
#Hypomagnesemia
-Metabolic derangement was most likely due to sepsis
-Repleted
# Hyperlipidemia
- cont atorvastatin
#Hyperphosphatemia
-Continue to monitor, may be due to TELMA
# Dementia
- acute delirium from sepsis with underlying dementia
- According to son, he is returning to baseline
- Started on Risperdal to help manage his symptoms
- On restraints to help prevent pulling out tubes
- Spoke with son and he was okay with the decision but would like for us to taper down the medication when possible
- Will have conversation regarding Goals of Care regarding feeding in the future
# Seizure prevention from previous brain surgery
- Cont Levetiracetam
Full Code
DVT Prophylaxis: SCDs
Anticipated Discharge: 24 - 48 hours
Subjective/Interval History
-
Date of Service: February 29, 2024
Patient seemed a bit more alert and reactive this morning. Talked with nurse who said that he did not have any adverse events overnight but did note that his abdomen has been distended and he had some liquidy bowel movements yesterday.
Objective Data
-
Labs:
Laboratory Results
02/29/24
07:52
WBC 10.8
Hgb 12.6 L
Hct 39.7
Plt Count 193
Sodium 144
Potassium 3.9
Chloride 109 H
Carbon Dioxide 28
BUN 29 H
Creatinine 0.9
Glucose 107 H
Calcium 7.8 L
Total Bilirubin 0.6
AST 66 H
ALT 53 H
Alkaline Phosphatase 83
Vital Signs:
Vital Signs
Temp Pulse Resp BP Pulse Ox
98.4 F 84 20 157/89 92
02/29/24 08:16 02/29/24 08:16 02/29/24 08:16 02/29/24 08:16 02/29/24 08:16
I&O
02/28/24 02/29/24 03/01/24
06:59 06:59 06:59
Intake Total 560 / 560 0 / 0
Output Total 200 / 200 1200 / 1200
Balance 360 / 360 -1200 / -1200
Review of Systems
-
Unable to obtain full review of systems at this time due to: Dementia
Constitutional: Reports No Symptoms
EENT: Reports No Symptoms Reported
Respiratory: Reports No Symptoms
Cardiac: Reports No Symptoms
Abdomen/GI: Reports Diarrhea and Bloated
Genitourinary: Reports No Symptoms
Musculoskeletal: Reports No Symptoms
Skin: Reports No Symptoms
Neuro: Reports No Symptoms
Endocrine: Reports No Symptoms
Hematologic / Lymphatic: Reports No Symptoms
Allergy / Immunology: Reports No Symptoms
Physical Exam
-
General: No Apparent Distress and Appears Chronically Ill
HEENT: Normocephalic and Atraumatic
Respiratory: Rhonchi and Non Labored Respirations
Cardiac: Regular Rhythm and S1/S2
GI: Soft, Nontender, Distended and Other (Nasogastric Tube in Place)
Musculoskeletal: No Clubbing, No Cyanosis and No Edema
Skin: Warm
Neuro: Awake and Alert
Psych: Calm and Apparent Dementia
Data Reviewed
-
Labs: Labs Reviewed by me, Discussed with Physician, Discussed with Nurse and Discussed with Patient
[2024-02-29] MEDS: PROTONIX IV 40 MG IV (10:01)
[2024-02-29] MEDS: NSS (PRESERVATIVE FREE) 10 ML IV (10:01)
[2024-02-29] MEDS: KEPPRA 500 MG IV ×2 (10:08→19:52)
[2024-02-29] MEDS: DECADRON 1 MG TUBE (10:11)
[2024-02-29] MEDS: LOW STRENGTH ASPIRIN 81 MG TUBE (10:12)
[2024-02-29] MEDS: LIPITOR 40 MG TUBE (10:12)
[2024-02-29] MEDS: RISPERDAL ORAL SOLUTION 0.25 MG TUBE ×2 (10:12→19:52)
[2024-02-29] MEDS: THIAMINE INJECTION 200 MG IV (10:14)
[2024-02-29 13:07] LABS: Venous Blood Gas B.E. 1.9 mmol/L (-4 to +4); Venous Blood Gas HCO3 26.6 mmol/L (22-27); Venous Blood Gas O2 Sat % 94.1 %; Venous Blood Gas pCO2 41 mmHg (35-48); Venous Blood Gas pH 7.42 (7.32-7.43); Venous Blood Gas pO2 70 mmHg (30-50)
[2024-02-29 16:37] VITALS: BP 124/70
[2024-03-01 00:22] VITALS: BP 130/64
[2024-03-01 05:08] VITALS: BMI 31.3
[2024-03-01 07:45] VITALS: BP 144/80
[2024-03-01] MEDS: PROTONIX IV 40 MG IV (08:43)
[2024-03-01] MEDS: KEPPRA 500 MG IV ×2 (08:43→19:52)
[2024-03-01] MEDS: NSS (PRESERVATIVE FREE) 10 ML IV (08:43)
[2024-03-01] MEDS: THIAMINE INJECTION 200 MG IV (08:43)
[2024-03-01] MEDS: LOW STRENGTH ASPIRIN 81 MG TUBE (08:44)
[2024-03-01] MEDS: RISPERDAL ORAL SOLUTION 0.25 MG TUBE ×2 (08:44→19:53)
[2024-03-01] MEDS: DECADRON 1 MG TUBE (08:44)
[2024-03-01] MEDS: ANCEF 10 IV ×2 (08:44→15:34)
[2024-03-01] MEDS: LIPITOR 40 MG TUBE (08:44)
--- NOTE | 2024-03-01 08:58 | W.PN.HOSP.TC ---
Today's Communication/Plan
-
Patient to continue on antibiotics. Continue monitoring for any change in mental status. Monitor for any further episodes of diarrhea.
Assessment / Plan
Assessment / Plan
Assessment:
73 yo male presents to the ED due to altered mental status, cough, vomiting, fever, as well as increased lethargy. Patient was found to be septic and given fluids and started on antibiotics in the ED. Patient's condition improved after initial
treatment however he still remains hypotensive. Was switched to ICU level care over night due to continued hypotension even with fluids. Due to continued hypotension, was started on pressors. Currently patient is off of pressors and his blood
pressure has improved. He is still on antibiotics and an NG tube due to his incidence of vomiting. Patient remains stable but occasionally gets fidgety most likely due to his dementia. He continues to have diarrhea which may be due to antibiotic
therapy.
Plan:
# Septic Shock secondary to UTI/Prostatitis
- Gram neg bacilli grown (Klebsiella)
- Fever has now resolved
- Lactate 1.5, resolved
- covid and flu neg
- Negative Norovirus
- Metabolic acidosis, Probable to increased Lactate, has now resolved
- Switched to NSS
- CXR (02/21)- pleural parenchymal airspace disease at the left lung base consistent with small pleural effusion with underlying pneumonia versus atelectasis
- Most likely due to aspiration
- Patient started on Jevity 1.5 on 02/24
- Continue restraints
- Continue Risperdal
- Continue TF
- IV Cipro switched to IV Ancef due to better penetration into Prostate (continue 14 days in total from 02/20-03/05)
- Replete K with IV rider 40 mEq as needed
- Follow up with urologist Dr. Piper
- Awaiting further speech eval now after patient is more alert
#TELMA
- Resolved
- Creatinine Improved 1.0
- Continue monitoring BMP
#Acute Hypoxemic Resp Failure
-Weaned to Room Air (98% O2)
-Resolved
-Continue to monitor O2 levels
-VBG ordered yesterday to see if there is any hypercapnia. Showed no abnormalities
#Thrombocytopenia
-Resolved
-Continue to monitor
-Possibly was due to Heparin, discontinued Heparin and started on SCDs for DVT prophylaxis
#Functional Ileus
- CR Obstruct Series- No evidence for bowel obstruction or free intraperitoneal air.
- Get patient to ambulate and move around
- Patient on DHT for tube feeds
- Abdominal distention might be due to constipation
- Abdominal X-Ray showed some gastric distention yesterday
- CT Abd/Pelvis ordered yesterday to check for gastric outlet obstruction
Right basilar pneumonia.
There is mild distention of the stomach without discrete obstruction. Findings may related to delayed gastric emptying. Nasoenteric tube terminates within the stomach.
Colonic diverticulosis.
Infrarenal abdominal aortic aneurysm measuring 3.1 cm
#Hypocalcemia
-Probable to Worsening kidney function
-Repleting calcium as needed
#Hypokalemia
-Resolved
-now 3.9, replete as necessary
#Hypomagnesemia
-Metabolic derangement was most likely due to sepsis
-Repleted
# Hyperlipidemia
- cont atorvastatin
#Hyperphosphatemia
-Continue to monitor, may be due to TELMA
# Dementia
- acute delirium from sepsis with underlying dementia
- According to son, he is returning to baseline
- Started on Risperdal to help manage his symptoms
- On restraints to help prevent pulling out tubes
- Spoke with son and he was okay with the decision but would like for us to taper down the medication when possible
- Will have conversation regarding Goals of Care regarding feeding in the future
# Seizure prevention from previous brain surgery
- Cont Levetiracetam
Full Code
DVT Prophylaxis: SCDs
Anticipated Discharge: 24 - 48 hours
Subjective/Interval History
-
Date of Service: March 01, 2024
Patient continues to be confused and incoherent. Nurse says that patient continues to have liquidy stool but otherwise had no adverse events overnight.
Objective Data
-
Labs:
Laboratory Results
03/01/24
06:00
WBC Pending
Hgb Pending
Hct Pending
Plt Count Pending
Sodium Pending
Potassium Pending
Chloride Pending
Carbon Dioxide Pending
BUN Pending
Creatinine Pending
Glucose Pending
Calcium Pending
Total Bilirubin Pending
AST Pending
ALT Pending
Alkaline Phosphatase Pending
Vital Signs:
Vital Signs
Temp Pulse Resp BP Pulse Ox
98.3 F 83 24 144/80 92
03/01/24 07:45 03/01/24 07:45 03/01/24 07:45 03/01/24 07:45 03/01/24 07:45
I&O
02/29/24 03/01/24 03/02/24
06:59 06:59 06:59
Intake Total 0 / 0 1740 / 1740
Output Total 1200 / 1200 800 / 800
Balance -1200 / -1200 940 / 940
Review of Systems
-
Unable to obtain full review of systems at this time due to: Dementia
Constitutional: Reports No Symptoms
EENT: Reports No Symptoms Reported
Respiratory: Reports No Symptoms
Cardiac: Reports No Symptoms
Abdomen/GI: Reports Diarrhea and Bloated; Denies Abdominal Pain or Constipated
Genitourinary: Reports No Symptoms
Musculoskeletal: Reports No Symptoms
Skin: Reports No Symptoms
Neuro: Reports No Symptoms
Endocrine: Reports No Symptoms
Hematologic / Lymphatic: Reports No Symptoms
Allergy / Immunology: Reports No Symptoms
Physical Exam
-
General: No Apparent Distress, Comfortable and Appears Chronically Ill
HEENT: Normocephalic, Atraumatic and Moist Mucous Membranes
Respiratory: Wheezes and Non Labored Respirations
Cardiac: Regular Rhythm and S1/S2
GI: Distended
Musculoskeletal: No Clubbing, No Cyanosis and No Edema
Skin: Warm
Neuro: Awake
Psych: Confused and Apparent Dementia
Data Reviewed
-
Diagnostic Radiology: Report Reviewed by me, Discussed with Physician, Discussed with Nurse, Discussed with Patient and Discussed with Family
CT Scan: Report Reviewed by me, Discussed with Physician, Discussed with Nurse, Discussed with Patient and Discussed with Family
Labs: Labs Reviewed by me, Discussed with Physician, Discussed with Nurse, Discussed with Patient and Discussed with Family
--- NOTE | 2024-03-01 12:11 | CM ---
Chart reviewed for d/c planning
Pt cont NGT for tube feedings, cont restraints to prevent pulling tube out. Pt cont abx
Cont monitoring for any changes in mental status per doctor's note.
Per chart, awaiting further speech eval now after patient is more alert
Pt cont to need skilled rehab, [facility] and [facility] referred to.
Spoke w/ [facility] re d/c status. CM shared pt is not ready for d/c today and will cont to follow up
CM will cont to follow for d/c planning
Plan: SNF; pending bed availability when stable for d/c
[2024-03-01 12:19] LABS: Hematocrit 36.9 % (39.0-52.0); Hemoglobin 11.9 g/dL (13.0-18.0); Mean Corp Hgb Conc. 32.2 g/dL (33.0-37.0); Mean Corpuscular Hgb 31.2 pg (27.0-31.0); Mean Corpuscular Volume 96.6 fL (80.0-94.0); Mean Platelet Volume 9.4 fL (7.4-10.4); Platelet Count 218 10^3/uL (130-400); Red Blood Cell Count 3.82 10^6/uL (4.70-6.10); Red Cell Dist. Width 15.9 % (11.5-14.5)
[2024-03-01 12:34] LABS: ALT (SGPT) 44 U/L (0-50); AST (SGOT) 83 U/L (17-59); Albumin 3.1 g/dl (3.5-5.0); Alkaline Phosphatase 86 U/L (38-126); Blood Urea Nitrogen 25 mg/dl (9-20); Calcium 7.8 mg/dl (8.4-10.2); Carbon Dioxide 28 mmol/L (22-30); Chloride 111 mmol/L (98-107); Estimated Creatinine Clearance 80 ml/min; Glucose 121 mg/dl (70-99); Sodium 144 mmol/L (135-145); Total Bilirubin 0.5 mg/dl (0.2-1.3); Total Protein 5.7 g/dl (6.3-8.2); eGFR > 60.00
[2024-03-01 15:13] VITALS: BP 174/86
[2024-03-01 18:12] VITALS: BP 145/86
[2024-03-01 23:40] VITALS: BP 160/78
[2024-03-02] MEDS: ANCEF 10 IV ×2 (00:06→08:44)
[2024-03-02 07:40] VITALS: BP 142/90
[2024-03-02] MEDS: RISPERDAL ORAL SOLUTION 0.25 MG TUBE (08:32)
[2024-03-02] MEDS: KEPPRA 500 MG IV ×2 (08:36→22:52)
[2024-03-02] MEDS: DECADRON 1 MG TUBE (08:36)
[2024-03-02] MEDS: LOW STRENGTH ASPIRIN 81 MG TUBE (08:37)
[2024-03-02] MEDS: PROTONIX IV 40 MG IV (08:37)
[2024-03-02] MEDS: NSS (PRESERVATIVE FREE) 10 ML IV (08:37)
[2024-03-02] MEDS: LIPITOR 40 MG TUBE (08:37)
[2024-03-02] MEDS: THIAMINE INJECTION 200 MG IV (08:38)
--- NOTE | 2024-03-02 09:31 | W.PN.HOSP.TC ---
Today's Communication/Plan
-
Continue with speech evals to see if he can be safely given oral food
Assessment / Plan
Assessment / Plan
Assessment:
73 yo male presents to the ED due to altered mental status, cough, vomiting, fever, as well as increased lethargy. Patient was found to be septic and given fluids and started on antibiotics in the ED. Patient's condition improved after initial
treatment however he still remains hypotensive. Was switched to ICU level care over night due to continued hypotension even with fluids. Due to continued hypotension, was started on pressors. Currently patient is off of pressors and his blood
pressure has improved. He is still on antibiotics and an NG tube due to his incidence of vomiting. Patient remains stable but occasionally gets fidgety most likely due to his dementia. No reported instance of diarrhea but he does have increased
wheezing.
Plan:
# Septic Shock secondary to UTI/Prostatitis
- Gram neg bacilli grown (Klebsiella)
- Fever has now resolved
- Lactate 1.5, resolved
- covid and flu neg
- Negative Norovirus
- Metabolic acidosis, Probable to increased Lactate, has now resolved
- Continue restraints
- Continue Risperdal
- Continue TF
- IV Cipro switched to IV Ancef due to better penetration into Prostate (continue 14 days in total from 02/20-03/05)
- Replete K with IV rider 40 mEq as needed
- Follow up with urologist Dr. Piper
- Awaiting further speech eval now after patient is more alert
- Patient started on Jevity 1.5 on 02/24
- Continue with daily speech evals, showed improvement yesterday but was still kept NPO
- Will try to get him off tube feeding before going back to care facility
- Increased Leukocytosis -> repeat CXR and Urinalysis
#TELMA
- Resolved
- Creatinine Improved 1.0
- Continue monitoring BMP
#Acute Hypoxemic Resp Failure
-Weaned to Room Air (98% O2)
-Resolved
-Continue to monitor O2 levels
-VBG ordered yesterday to see if there is any hypercapnia. Showed no abnormalities
#Thrombocytopenia
-Resolved
-Continue to monitor
-Possibly was due to Heparin, discontinued Heparin and started on SCDs for DVT prophylaxis
#Functional Ileus
- CR Obstruct Series- No evidence for bowel obstruction or free intraperitoneal air.
- Get patient to ambulate and move around
- Patient on DHT for tube feeds
- Abdominal distention might be due to constipation
- Abdominal X-Ray showed some gastric distention yesterday
- CT Abd/Pelvis ordered yesterday to check for gastric outlet obstruction
Right basilar pneumonia.
There is mild distention of the stomach without discrete obstruction. Findings may related to delayed gastric emptying. Nasoenteric tube terminates within the stomach.
Colonic diverticulosis.
Infrarenal abdominal aortic aneurysm measuring 3.1 cm
-Stool Negative for C.Dif, Norovirus
#Hypocalcemia
-Probable to Worsening kidney function
-Repleting calcium as needed
#Hypokalemia
-Resolved
-now 3.9, replete as necessary
#Hypomagnesemia
-Metabolic derangement was most likely due to sepsis
-Repleted
# Hyperlipidemia
- cont atorvastatin
#Hyperphosphatemia
-Continue to monitor, may be due to TELMA
# Dementia
- acute delirium from sepsis with underlying dementia
- According to son, he is returning to baseline
- Started on Risperdal to help manage his symptoms
- On restraints to help prevent pulling out tubes
- Spoke with son and he was okay with the decision but would like for us to taper down the medication when possible
- Will have conversation regarding Goals of Care regarding feeding in the future
- Mental status is improving as he continues with antibiotic therapy
# Seizure prevention from previous brain surgery
- Cont Levetiracetam
Full Code
DVT Prophylaxis: SCDs
Anticipated Discharge: 24 - 48 hours
Subjective/Interval History
-
Date of Service: March 02, 2024
Patient continues to be more aware and alert than before. Was able to recognize me more today. Nurse was concerned for any aspiration as he was breathing a bit heavily.
Objective Data
-
Labs:
Laboratory Results
03/02/24
08:54
WBC Pending
Hgb Pending
Hct Pending
Plt Count Pending
Sodium Pending
Potassium Pending
Chloride Pending
Carbon Dioxide Pending
BUN Pending
Creatinine Pending
Glucose Pending
Calcium Pending
Total Bilirubin Pending
AST Pending
ALT Pending
Alkaline Phosphatase Pending
Vital Signs:
Vital Signs
Temp Pulse Resp BP Pulse Ox
98.9 F 98 26 142/90 95
03/02/24 07:40 03/02/24 07:40 03/02/24 07:40 03/02/24 07:40 03/02/24 07:40
I&O
03/01/24 03/02/24 03/03/24
06:59 06:59 06:59
Intake Total 1740 / 1740 1020 / 1020
Output Total 800 / 800 1025 / 1025
Balance 940 / 940 -5 / -5
Review of Systems
-
Unable to obtain full review of systems at this time due to: Dementia
History Source: Patient
Constitutional: Denies Sleep Disturbance
EENT: Reports No Symptoms Reported
Respiratory: Reports Wheezing
Cardiac: Denies Chest Pain, Diaphoresis or Palpitations
Abdomen/GI: Denies Abdominal Pain, Nausea, Vomiting, Diarrhea or Constipated
Musculoskeletal: Reports No Symptoms
Skin: Reports No Symptoms
Neuro: Reports No Symptoms
Endocrine: Reports No Symptoms
Hematologic / Lymphatic: Reports No Symptoms
Allergy / Immunology: Reports No Symptoms
Physical Exam
-
General: No Apparent Distress and Appears Chronically Ill
HEENT: Normocephalic, Atraumatic and Moist Mucous Membranes
Respiratory: Wheezes and Non Labored Respirations
Cardiac: Regular Rhythm and S1/S2
GI: Soft, Nontender and Nondistended
Musculoskeletal: No Clubbing, No Cyanosis and No Edema
Skin: Warm and Dry
Neuro: Awake and Alert
Psych: Anxious and Apparent Dementia
Data Reviewed
-
Labs: Labs Reviewed by me, Discussed with Physician, Discussed with Nurse and Discussed with Patient
[2024-03-02 09:41] LABS: Hematocrit 36.7 % (39.0-52.0); Hemoglobin 11.7 g/dL (13.0-18.0); Mean Corp Hgb Conc. 31.9 g/dL (33.0-37.0); Mean Corpuscular Volume 97.3 fL (80.0-94.0); Mean Platelet Volume 9.4 fL (7.4-10.4); Platelet Count 256 10^3/uL (130-400); Red Blood Cell Count 3.77 10^6/uL (4.70-6.10); Red Cell Dist. Width 15.7 % (11.5-14.5); White Blood Cell Count 13.6 10^3/uL (4.8-10.8)
[2024-03-02 10:03] LABS: ALT (SGPT) 47 U/L (0-50); AST (SGOT) 89 U/L (17-59); Albumin 3.1 g/dl (3.5-5.0); Alkaline Phosphatase 80 U/L (38-126); Blood Urea Nitrogen 24 mg/dl (9-20); Calcium 8.1 mg/dl (8.4-10.2); Carbon Dioxide 30 mmol/L (22-30); Chloride 108 mmol/L (98-107); Estimated Creatinine Clearance 90 ml/min; Glucose 104 mg/dl (70-99); Potassium 4.3 mmol/L (3.5-5.1); Sodium 143 mmol/L (135-145); Total Bilirubin 0.4 mg/dl (0.2-1.3); Total Protein 5.7 g/dl (6.3-8.2); eGFR > 60.00
--- NOTE | 2024-03-02 11:05 | W.PN.ID1 ---
Date of Service
Date of Service: March 02, 2024
Today's Communication
- start ceftriaxone, course remains through 03/05
- loose stools likely related to tube feeds
Assessment / Plan
AMS - improving
Possible aspiration pneumonia
Likely Prostatitis - UTI due to Klebsiella
Bacteremia - due to Klebsiella
Probable aspiration pneumonitis vs atelectasis vs pneumonia
Seizure Disorder on Keppra
TELMA - improving
- CT a/p with possible infiltrate with air bronchograms in the RLL, leukocytosis
- start ceftriaxone, course remains through 03/05
- loose stools likely related to tube feeds
follow up with his urologist Dr Piper
Chief Complaint
-: Bacteremia
Subjective / Review of Systems
afebrile
bp stable
concern for possible aspiration - remains NPO
becoming more alert
Vital Signs / Physical Exam
Vital Signs
Vital Signs
Temp Pulse Resp BP Pulse Ox
98.9 F 98 26 142/90 95
03/02/24 07:40 03/02/24 07:40 03/02/24 07:40 03/02/24 07:40 03/02/24 07:40
Physical Exam
Constitutional: No Acute Distress
Cardiovascular: Regular Rate and S1/S2; Negative Murmur or Rub
Pulmonary: Clear and Symmetric; Negative Wheezes or Rales
Gastrointestinal: Soft, Non Tender, Non Distended and Normal Bowel Sounds
Skin: Warm and Dry; Negative Rash or Jaundice
Lines: Other (ngt in place)
Objective Data
Lab Data
Lab Results
03/02/24 08:54
03/02/24 08:54
PT 18.6 Sec (11.4-14.6) H 02/22/24 05:23
INR 1.53 02/22/24 05:23
APTT 40.1 Sec (23.4-35.0) H 02/22/24 05:23
Estimated Creat Clear 90 ml/min 03/02/24 08:54
Lactic Acid 1.5 mmol/L (0.7-2.0) 02/23/24 17:06
Total Bilirubin 0.4 mg/dl (0.2-1.3) 03/02/24 08:54
AST 89 U/L (17-59) H 03/02/24 08:54
ALT 47 U/L (0-50) 03/02/24 08:54
Alkaline Phosphatase 80 U/L (38-126) 03/02/24 08:54
Most recent labs reviewed.
Micro Results:
03/01/24 13:13 C. difficile GDH Antigen & Toxins - Final
Feces/Stool Negative for toxigenic C.difficile
- Final
Negative for Norovirus GI and GII.
02/21/24 14:27 Blood Culture - Final
Blood/Venous Klebsiella pneumoniae
Gram Stain - Final
02/21/24 14:27 Blood Culture - Final
Blood/Venous Klebsiella pneumoniae
Gram Stain - Final
02/21/24 14:41 Urine Culture - Final
Urine Klebsiella pneumoniae
02/21/24 21:47 MRSA Screen - Final
Nose No Methicillin Resistant Staphylococcus aureus isolated.
02/21/24 21:46 - Final
Feces/Stool Negative for Norovirus GI and GII.
02/21/24 14:27 Influenza Types A & B (GARRETT) - Final
Nasal Swab Negative for Influenza A & B, NAAT
Negative results must be combined with clinical observations
and patient history.
Nucleic Acid Amplification test (NAAT)performed on the
[employer] platform.
--- NOTE | 2024-03-02 11:36 | CM ---
Chart reviewed. Pt cont. IV abx thru 03/05
Cont NPO, has NGT for tube feeds. Speech following to see if pt can tolerate being given oral food
Pt cont to be on restraints to prevent pulling out NGT
PT/OT last evaluated pt needing SNF at d/c. Will need updated eval prior to d/c
SNF referral process prev initiated
Plan: SNF; pending accepting facility when pt is medically stable for d/c
CM will cont to follow pt's hospital course and progress
[2024-03-02 12:40] VITALS: BP 137/81
[2024-03-02 13:39] VITALS: BP 137/51; O2SAT 97
[2024-03-02 14:54] VITALS: BP 153/81
[2024-03-02] MEDS: STERILE WATER FOR INJECTION 20 ML IV (15:10)
[2024-03-02] MEDS: ROCEPHIN 2000 MG IV (15:10)
[2024-03-02 18:57] LABS: Urine Albumin Trace (Neg - Trace); Urine Bilirubin Negative (Negative); Urine Character Clear (Clear); Urine Color Yellow; Urine Glucose Negative (Negative); Urine Ketone Negative (Negative); Urine Leukocyte Negative (Negative); Urine Nitrite Negative (Negative); Urine Occult Blood Negative (Negative); Urine Urobilinogen Negative (Neg - 1+)
--- NOTE | 2024-03-02 22:56 | W.PN.UPDATE ---
Update Note
Progress Note Update
Notified that patient pulled at Dobhoff tube, portable CXR obtained and showed that DHT is coiled within his upper esophagus. Tube feeds put on hold. Patient NPO.
[2024-03-02 23:03] VITALS: BP 128/74
[2024-03-02] MEDS: RISPERDAL ORAL SOLUTION TUBE (23:37)
--- NOTE | 2024-03-02 23:37 | PTCARENOTE ---
Pt on restraints, managed to reach out with hand to pull out the dub-Bruno. Dub-Bruno partially out. Tube feeding held. XRay ordered after attempt to reinsert the dub-Bruno. XRay showed that the weighted tip nasoenteric tube coils within the
oropharynx/upper esophagus. Dub-Bruno tube removed, pt remains NPO. Will continue to monitor the pt.
--- NOTE | 2024-03-03 03:20 | W.PN.ANESINT ---
Anesthesia Intubation Note
- Intubation Note
Intubation Note:
Diagnosis: cardiorespiratory arrrest
Blade: glidescope
Tube Size: 8.0
Depth: 23cm
Side Taped: center
Drugs Used: no drugs used
Grade View: 1
EtCO2 Present: ETOCO2 color change present
Atraumatic: atraumatic
Attempts: 1
Insertion Start and Stop Time: 304 start 308 stop
SaO2 Pre: undetected
SaO2 Post: undetected
Glidescope Used: glidescope used
Other Airway Adjustments: none
Pre-Oxygenated: bag mask ventilation by respiratory therapist
Portable Chest X-Ray: ordered
RSI: no drugs required
Suctioned: moderate vomit/bile, ETT suctioned for bile as well
Bilateral Breath Sounds Confirmed: bilateral breath sounds, no breath sounds over abdomen
Vent Settings: ambu bag ventilation
Settings per ___Attending Physician
Sima Hazel CRNA
--- NOTE | 2024-03-03 04:33 | PTCARENOTE ---
Pt at 329. GLDP called at 040. Information given to Yudy.
--- NOTE | 2024-03-03 04:38 | W.PN.UPDATE ---
Update Note
Progress Note Update
03/03/24
301- Code 9 called, patient found to be pulseless in PEA, CPR immediately started. See code 9 sheet for full resuscitation details. At the bedside Dr. Rios, hospitalist. Patient was intubated during code by ASSISTANT OPERATOR. Additional IV access obtained
including Right femoral TLC placed by Dr. Rios. Family called and came to bedside. Patient did not remain pulse, code was stopped and time of called at 0330. Family at bedside, questions answered, and support offered.
--- NOTE | 2024-03-03 04:48 | W.PN.DEATH ---
Pronouncement of
-
Code called, patient's family arrived and decided no more CPR or further interventions.
No spontaneous heart tones or respirations noted.
Patient not responsive to verbal stimuli.
Patient is pronounced .
Time of : 03:30
Date of : 03/03/24
Cause of : Cardiac arrest
Family Notified: Yes
--- NOTE | 2024-03-03 06:15 | PTCARENOTE ---
Trolley [employer]or visited pt's family. Pt's family left afterwards and postmortem care performed. [place] [facility] [place]
== END 2024-03-03 06:19 | disposition expired | DRG 871 ==
LOC: ICU 16:23
PROVIDERS: Hospitalist; Nurse Anesthetist, Certified Registered; Nurse Practitioner Family; Physician Assistant Medical; Registered Nurse; Student in an Organized Health Care Education/Training Program; ADMITTING PHYSICIAN Family Medicine; ATTENDING PHYSICIAN Internal Medicine; CONSULT PHYSICIAN Internal Medicine Critical Care Medicine; CONSULT PHYSICIAN Student in an Organized Health Care Education/Training Program; EMERGENCY PHYSICIAN Emergency Medicine; FAMILY PHYSICIAN Internal Medicine
PROC: 0CHY7BZ Insertion of Airway into Mouth and Throat, Via Natural or Artificial Opening (ICD-10-PCS; 2024-03-03)
DX: A41.9 Sepsis, unspecified organism (principal); G92.8 Other toxic encephalopathy; J69.0 Pneumonitis due to inhalation of food and vomit; R65.21 Severe sepsis with septic shock; E87.20 Acidosis, unspecified; N17.9 Acute kidney failure, unspecified; N39.0 Urinary tract infection, site not specified; K56.7 Ileus, unspecified; G40.909 Epilepsy, unspecified, not intractable, without status epilepticus; I46.9 Cardiac arrest, cause unspecified; Z11.52 Encounter for screening for COVID-19
CPT/HCPCS: 36600; 70450; 71045; 71046; 74018; 74022; 74176; 80048; 80053; 81003; 81015; 82330; 82805; 83605; 83735; 84100; 85025; 85027; 85610; 85730; 87040; 87070; 87077; 87086; 87149; 87186; 87205; 87324; 87449; 87502; 87798; 87811; 92526; 92610; 93005; 94640; 96365; 96372; 96375; 97163; 97167; 97530; 97535; 99291